=== PATIENT | female | born 1985 | race Caucasian/White ===

== ENCOUNTER 2022-07-16 01:28 | Emergency (ER) | payer BC, SELFPAY ==
[2022-07-16 01:33] VITALS: BP 134/74; PULSE 70; RESP 18; TEMP 36; O2SAT 95
--- NOTE | 2022-07-16 01:51 | CRLHL7_ITS ---
For Patients: As a result of the Cures Act, medical imaging exams and procedure reports are released immediately into your electronic medical record. You may view this report before your referring provider. If you have questions, please contact your health care provider. INDICATION: Injury, pain, smashed tip of finger in car door TECHNIQUE: Finger radiograph 3 views right 3rd COMPARISON: None FINDINGS: Bone: There is a nondisplaced comminuted fracture present in the 3rd distal phalangeal tuft. Joint: The metacarpophalangeal and interphalangeal joints are normal in appearance. Soft tissue: Mild soft tissue swelling is present along the distal finger. No radiopaque foreign bodies are seen. IMPRESSION: 1. There is a nondisplaced comminuted fracture present in the 3rd distal phalangeal tuft. Dictated by Edilberto Canas MD @ 07/16/2022 2:16:46 AM Dictated by: Edilberto Canas MD @ 07/16/2022 02:16:51 (Electronically Signed)
--- NOTE | 2022-07-16 01:52 | ED_ITS ---
HPI - General Adult General Date Seen: 07/16/22 Chief complaint: Extremity Pain/Injury, Upper Stated complaint: Smashed finger in car door Time Seen by Provider: 07/16/22 01:37 Source: patient Mode of arrival: ambulatory Limitations: no limitations History of Present Illness HPI narrative: Patient is a 37-year-old female who was picking her brother up at the airport when she slammed the car door on her right 3rd finger tip. It bled profusely. She comes in for evaluation for suturing. Last tetanus was within the last 10 years. Related Data Previous Rx's Medication Instructions Recorded sulfamethoxazole 800 1 tab PO BID #10 tabs 07/16/22 mg-trimethoprim 160 mg tablet (Bactrim DS) Allergies Allergy/AdvReac Type Severity Reaction Status Date / Time cefaclor [From Ceclor] AdvReac Severe Verified 07/16/22 01:38 Review of Systems 2 Narrative: Review of systems is as outlined above otherwise noted to be negative. Exam Narrative: Exam Narrative: Examination is limited to the right upper extremity. She has crush injury to the tip of the right 3rd finger with a jagged laceration that is about 1.5 cm in length. Bleeding is controlled with direct pressure. She has normal movement at the D IP joint. Const: Vital Signs, click to edit/add: Vital Signs - 24 hr 07/16/22 01:33 Temperature 96.8 F L Pulse Rate [Left P ulse Oximeter] 70 Respiratory Rate 18 Blood Pressure [Le ft Upper Arm] 134/74 Pulse Oximetry 95 Oxygen Delivery Me thod Room Air Course Course Hospital Course: Patient seen and examined. X-ray of the right 3rd finger shows a nondisplaced tiny tuft fracture. Her wound is prepped and draped in sterile fashion, scrubbed with a Betadine solution, numbed with 1% lidocaine. Four simple interrupted sutures used to close the defect. Good wound edge approximation and hemostasis was achieved. She tolerated this well. Estimated blood loss is less than 2 mL. It is then dressed with bacitracin and a Band-Aid. Vital Signs Vital signs: Initial Vital Signs Temperature 96.8 F L 07/16/22 01:33 Temperature Source Temporal Artery Scan 07/16/22 01:33 Pulse Rate 70 07/16/22 01:33 Pulse Rhythm 07/16/22 01:33 Respiratory Rate 18 11/18/22 01:33 Blood Pressure 134/74 07/16/22 01:33 Blood Pressure Mean 94 07/16/22 01:33 Blood Pressure Position Sitting 07/16/22 01:33 Pulse Oximetry 95 07/16/22 01:33 Oxygen Delivery Method 07/16/22 01:33 Vital Signs Temperature 96.8 F L 07/16/22 01:33 Pulse Rate 70 07/16/22 01:33 Respiratory Rate 18 07/16/22 01:33 Blood Pressure 134/74 07/16/22 01:33 Pulse Oximetry 95 07/16/22 01:33 Oxygen Delivery Method 07/16/22 01:33 Temperature 96.8 F L 07/16/22 01:33 Pulse Rate 70 07/16/22 01:33 Respiratory Rate 18 07/16/22 01:33 Blood Pressure 134/74 07/16/22 01:33 Pulse Oximetry 95 07/16/22 01:33 Oxygen Delivery Method 07/16/22 01:33 Discharge Plan Discharge Clinical Impression: Closed fracture of tuft of distal phalanx of finger, Finger laceration Patient Disposition: Home, Self-Care Additional Instructions: Keep wound clean, dry, protected. Use Tylenol or ibuprofen for pain. Take Bactrim DS twice daily for five days to prevent infection. Sutures out in 10 days. Watch for signs of infection. Prescriptions: New sulfamethoxazole-trimethoprim [Bactrim DS] 800-160 mg tablet 1 tab PO BID Qty: 10 0RF Follow Up/Referrals: Corinne Kay PA-C [Primary Care Provider] - Stand Alone [facility] Inst[facility]
--- OUTSIDE RECORDS SUMMARY | 2022-07-16 02:16 | XMS_ITS | Encounter Summary ---
:1985 Author Organization [place] Address [address] [place] [address] Care Team Providers Name Role Phone Thelma Cummins Ann Primary Care Provider Reason for Referral Nutrition - Closed Specialty Diagnoses / Procedures Referred By Contact Refer red To Contact Diagnoses Morbid obesity with BMI of 45.0-49.9, adult (H) Gisell Madrigal PA-C [address] [id number] Referral ID Status Reason Start Date Expiration Date Visits Requ ested Visits Authorized [id number] Closed 11/28/2018 11/28/2019 1 1 Reason for Visit Reason Comments Eval/Assessment New bariatric surgery eval w juanpablo CORTES and RDLeobardo (BCBS). Encounter Details Date Type Department Care Team Description 11/28/2018 Office Visit [facility] Gisell Madrigal Morbid ob esity with BMI of 45.0-49.9, adult (H) (Primary Dx); Surgical Weight Loss CONSTANTIN Alvarado YAMINI on CPAP; [facility] [address] Prediabetes; [address] [facility] [address] [phone] Stress incontinence; [facility] [phone] GERD without esophagitis; [address] (Work) [employer]; [place] [id number] Lower extremity edema; Low back pain, unspecified back pain laterality, unspecified chronicity, with sciatica presence unspecified; Chronic diarrhe a; Tobacco use dis order Social History Tobacco Use Types Packs/Day Years Used Date Smoking Tobacco: Every Day Cigarettes 0.5 15 Smokeless Tobacco: Never Alcohol Use Standard Drinks/Week Comments No 0 (1 standard drink = 0.6 oz pure alcoho l) Alcohol Habits Answer Date Recorded How often do you have a drink containing alcohol? Never 10/25/2018 How many drinks containing alcohol do you have on a typical Not asked day when you are drinking? How often do you have six or more drinks on one occasion? No t asked Sex Assigned at Date Recorded Not on file documented as of this encounter Last Filed Vital Signs Vital Sign Reading Time Taken Comments Blood Pressure 125/76 11/28/2018 10:00 AM CDT Pulse 85 11/28/2018 10:00 AM CDT Temperature - - Respiratory Rate - - Oxygen Saturation 97% 11/28/2018 10:00 AM CDT Inhaled Oxygen Concentration - - Weight 136 kg (299 lb 12.8 oz) 11/28/2018 10:00 AM CDT Height 171.5 cm (5' 7.5) 11/28/2018 10:00 AM CDT Body Mass Index 46.26 11/28/2018 10:00 AM CDT documented in this encounter Progress Notes Gisell Madrigal PA-C - 11/28/2018 10:00 AM CDT New Bariatric Surgery Consultation Note November 28, 2018 RE: Ann-Marie Alvarado MR#: [id number] : 1985 Referring provider: 11/28/2018 Who referred you? Dr. Curiel Chief Complaint/Reason for visit: evaluation for possible weight loss surgery Dear Thelma Cummins (General), I had the pleasure of seeing your patient, Ann-Marie Alvarado, to evaluate her obesity and consider her for possible weight loss surgery. As you know, Ann-Marie Alvarado is 33 year old. She has a height of 5' 7.5, a weight of 299 lbs 12.8 oz, and calculated Body mass index is 46.26 kg/m??. HISTORY OF PRESENT ILLNESS: Weight Loss History Reviewed with Patient 11/28/2018 How long have you been overweight? Since burnisher and bumper What is the most that you have ever weighed? 300 What is the most weight you have lost? 10 I have tried the following methods to lose weight Watching portions or calories, Prescription Medications I have tried the following weight loss medications? (Check all that apply) Phentermine/Adipex-p/Suprenza Have you ever had weight loss surgery? No CO-MORBIDITIES OF OBESITY INCLUDE: 11/28/2018 I have the following co-morbidities associated with obesity: Pre-Diabetes, Sleep Apnea, GERD (Reflux), Asthma, Weight Bearing Joint Pain, Stress Incontinence Do you use a CPAP? Yes Are you taking daily medication for heartburn, acid reflux, or GERD (acid reflux disease)? Yes Was diagnosed with prediabetes with an A1C = 5.7. Unable to view in EMR. Patient was started on metformin. Diagnosed with YAMINI last year. Severe YAMINI. Now wears CPAP nightly. GERD - has been taking protonix once daily for years PAST MEDICAL HISTORY: Past Medical History: Diagnosis Date ??? Heart palpitations Has had infrequent heart palpitations over the past few years. About a month ago was having heart palpitations for about a week when she had a near syncope episode while at work. She was taken by ambulance to [facility]. Has has echo scheduled in 2 weeks. PAST SURGICAL HISTORY: Past Surgical History: Procedure Laterality Date ??? CHOLECYSTECTOMY 2011 ??? HYSTERECTOMY 2014 No person history of blood clots but patient remembers having a hard time coming out of anesthesia from her first surgery as an adult. Has had surgery since this with no problem. Mother had a DVT in her 40's. Not sure of the cause. FAMILY HISTORY: Family History Problem Relation Age of Onset ??? Hypertension Mother ??? Diabetes Mother ??? Hyperlipidemia Mother ??? Depression Mother ??? Obesity Mother ??? Hyperlipidemia Father ??? Depression Father ??? Hypertension Father ??? Obesity Father Mother had gastric bypass many years ago. SOCIAL HISTORY: Social History Questions Reviewed With Patient 11/28/2018 Which best describes your employment status (select all that apply) I work full-time If you work, what is your occupation? [employer] Which best describes your marital status: Do you have children? Yes Who do you have in your support network that can be available to help you for the first 2 weeks after surgery? , family Who can you count on for support throughout your weight loss surgery journey? , family Can you afford 3 meals a day? Yes Can you afford 50-60 dollars a month for vitamins? Yes HABITS: 11/28/2018 How often do you drink alcohol? Monthly or less If you do drink alcohol, how many drinks might you have in a day? (one drink = 5 oz. wine, 1 can/bottle of beer, 1 shot liquor) 1 or 2 Do you currently use any of the following Nicotine products? cigarettes Have you ever used any of the following nicotine products? Cigarettes Have you or are you currently using street drugs or prescription strength medication for which you do not have a prescription for? No Do you have a history of chemical dependency (alcohol or drug abuse)? No Drinks alcohol maybe once yearly. Smokes cigarettes since age 19. She is down from a ppd to 5 cigarettes. PSYCHOLOGICAL HISTORY: Psychological History Reviewed With Patient 11/28/2018 Have you ever attempted suicide? Never. Have you had thoughts of suicide in the past year? No Have you ever been hospitalized for mental illness or a suicide attempt? Never. Do you have a history of chronic pain? Yes Have you ever been diagnosed with fibromyalgia? No Are you currently being treated for any of the following? (select all that apply) Depression Are you currently seeing a therapist or counselor? No Are you currently seeing a psychiatrist? No Feels like she is doing better with her depression ROS: 11/28/2018 Skin: Skin fold rashes (groin or other folds), Leg swelling HEENT: Headaches Musculoskeletal: Joint Pain, Back pain, Limited mobility, Swelling of legs, Arthritis Cardiovascular: Shortness of breath with activity Pulmonary: Shortness of breath with activity, Snoring, Excessively sleep during the day Gastrointestinal: Heartburn, Reflux, Diarrhea Genitourinary: Stress incontinence (losing urine when coughing, sneezing, etc.) Hematological: Family history of blood clots Neurological: None of the above Female only: None of the above For back pain takes tylenol. She does go to see chiropractor. Gets tension headaches EATING BEHAVIORS: 11/28/2018 Have you or anyone else thought that you had an eating disorder? No Do you currently binge eat (eat a large amount of food in a short time)? No Are you an emotional eater? No Do you get up to eat after falling asleep? No EXERCISE: 11/28/2018 How often do you exercise? Less than 1 time per week What is the duration of your exercise (in minutes)? 15 Minutes What types of exercise do you do? walking What keeps you from being more active? Pain, My ability to walk or move around is limited, Too tired MEDICATIONS: Current Outpatient Medications Medication Sig Dispense Refill ??? Cholecalciferol (VITAMIN D-3) 5000 units TABS ??? escitalopram (LEXAPRO) 20 MG tablet ??? metFORMIN (GLUCOPHAGE-XR) 500 MG 24 hr tablet Take 500 mg by mouth daily (with dinner) ??? multivitamin w/minerals (MULTI-VITAMIN) tablet Take 1 tablet by mouth daily ??? pantoprazole (PROTONIX) 40 MG EC tablet Take 40 mg by mouth daily ALLERGIES: Allergies Allergen Reactions ??? Ceclor Cd [Cefaclor Monohydrate] Hives, Swelling and Difficulty breathing Throat swells ??? Sertraline Nausea and Vomiting ??? Wellbutrin [Bupropion] LABS/IMAGING/MEDICAL RECORDS REVIEW: latest labs PHYSICAL EXAM: BP 125/76 (BP Location: Right arm, Patient Position: Sitting, Cuff Size: Adult Large) Pulse 85 Ht 5' 7.5 (1.715 m) Wt 299 lb 12.8 oz (136 kg) SpO2 97% BMI 46.26 kg/m?? GENERAL: Good development and normal affect in no acute distress. Patient is alert and orientated x 3 and answers all questions appropriately. HEENT: Head is normocephalic, nontraumatic. Pupils equal and round without conjunctival injection. Neck is supple without lymphadenopathy, thyroidmegaly, or mass. Trachea midline. Dentition WNL. Missing 1 MARIAELENA tooth CARDIOVASCULAR: Regular rate and rhythm without murmurs, rubs, or gallops. RESPIRATORY: Lungs are clear to auscultation bilaterally with good breath sounds. GASTROINTESTINAL: Abdomen is obese, nondistended, soft, nontender, without organomegaly or masses. No bruits. LOWER EXTREMITIES: No LE edema bilaterally, no cyanosis, ulceration, or chronic venous stasis noted. MUSCULOSKELETAL: Moves all 4 extremities equal and strong. Has a normal gait. NEUROLOGIC: Cranial nerves II-XII grossly intact. SKIN: No intertriginous irritation or rash. In summary, Ann-Marie Keily Jenny has Morbid obesity who's Body mass index is 46.26 kg/m??. and the comorbidities stated above. She completed an informational seminar and is a candidate for the laparoscopic gastric sleeve/gastric bypass. She will have to complete the following pre-requisites: Lose 0 lbs prior to surgery due to smoking cessation Have preoperative laboratory tests drawn. - Patient will get copies of recent A1C and vitamin D. Ordered hepatic panel today Psychological Evaluation with MMPI and clearance for weight loss surgery. 3 months smoke free First urine nicotine Achieve clearance from dietitian to see surgeon. Cardiology clearance CPAP usage data Today in the office we discussed patients medical history. Preoperative, perioperative, and postoperative processes, management, and follow up were addressed. Next month she will return to discuss boththe laparoscopic gastric sleeve as well as the gastric bypass. Risks and benefits will be addressed.All questions were answered. A goal sheet and support group handout were given to the patient. Reviewed need for pre/post op anticoagulation. BERNARDA states I ran it by Dr. Prasad. No need for work-up. Just treat standard post-op protocol for DVT prophylaxis. Lakshmi Sincerely, Gisell Madrigal PA-C I spent a total of 50 minutes face to face with the patient during today's office visit. Over 50% ofthis time was spent counseling the patient and/or coordinating care. documented in this encounter Plan of Treatment Scheduled Referrals Name Type Priority Associated Diagnoses Order S chedule NUTRITION REFERRAL Referral Routine Morbid obesity with BM I of Ordered: 11/28/2018 45.0-49.9, adult (H) documented as of this encounter Visit Diagnoses Diagnosis Morbid obesity with BMI of 45.0-49.9, ad ult (H) - Primary YAMINI on CPAP Obstructive sleep apnea (adult) (pediatr ic) Prediabetes Other abnormal glucose Stress incontinence Female stress incontinence GERD without esophagitis Esophageal reflux Intertrigo Other specified erythematous condition Lower extremity edema Edema Low back pain, unspecified back pain lat erality, unspecified chronicity, with sciatica presence unspecified Chronic diarrhea Diarrhea Tobacco use disorder documented in this encounter Care Teams Lunchroom Mother Relationship Specialty Start Date End Date Thelma Cummins PCP - General Family Practice 11/28/18 documented as of this encounter
--- OUTSIDE RECORDS SUMMARY | 2022-07-16 02:16 | XMS_ITS | Encounter Summary ---
:1985 Author Organization [facility] [facility] Address [address] [place] [address]. [place] [address] Care Team Providers Name Role Phone Isabel Mcclelland MD Primary Care Provider [phone] Encounter Details Date Type Department Care Team Description 10/25/2018 Travel Social History Tobacco Use Types Packs/Day Years [...] on file documented as of this encounter Plan of Treatment Not on filedocumented as of this encounter Visit Diagnoses Not on filedocumented in this encounter Care Teams Tile Fitter Relationship Specialty Start Date End Date Isabel Mcclelland MD PCP - General Family Practice 10/25/18 11/27/[address] [address] documented as of this encounter
--- OUTSIDE RECORDS SUMMARY | 2022-07-16 02:16 | XMS_ITS | Clinical Summary ---
:1985 Author Organization [facility] Address [address] [address] Care Team Providers Name Role Phone Unavailable Primary Care Provider Unavailable Source Comments You are receiving this document as you are listed as the primary care provider,follow-up provider, or the patient has been referred to you for consultation.This is in compliance with the Medicare and Medicaid EHR Incentive Program,which states Providers who transition their patient to another setting of careor provider of care or refers their patient to another provider of care shouldprovide summarycare record for each transition of care or referral. [facility] Allergies Active Allergy Reactions Severity Noted Date Comments Cefaclor Anaphylaxis High 02/17/2011 Medications Medication Sig Dispensed Refills Start Date End Date Status FLUoxetine (PROZAC) 20 Take 60 mg by 0 Active MG tablet mouth daily. pantoprazole (PROTONIX) Take 20 mg by 0 Active 20 MG tablet mouth daily. propranolol (INDERAL) Take 5 mg by 0 Active 10 MG tablet mouth two times a day. diclofenac (VOLTAREN) Take 1 Tablet by 30 Tablet 0 10/21/2020 Active 50 MG enteric coated mouth two times a tablet day. Active Problems Problem Noted Date Lumbar herniated disc 05/10/2011 Work-related condition 05/04/2011 Sciatica 04/29/2011 Pain in back 04/29/2011 Family History Medical History Relation Name Comments Diabetes Mother Cancer, Breast Maternal Grandmother Relation Name Status Comments Father Alive Mother Alive Brother Alive Daughter Alive x 2 Maternal Grandmother Social History Tobacco Use Types Packs/Day Years Used Date Smoking Tobacco: Every Day Cigarettes 1 6 Smokeless Tobacco: Never Alcohol Use Standard Drinks/Week Comments No 0 (1 standard drink = 0.6 oz pure alcoho l) Sex Assigned at Date Recorded Not on file Last Filed Vital Signs Vital Sign Reading Time Taken Comments Blood Pressure 136/70 07/09/2011 9:27 AM SNOW PLOW OPERATOR Pulse 76 07/09/2011 9:27 AM SNOW PLOW OPERATOR Temperature 36.8 ??C (98.3 ??F) 10/21/2020 10:18 AM SNOW PLOW OPERATOR Respiratory Rate 16 06/22/2011 4:53 PM CDT Oxygen Saturation - - Inhaled Oxygen Concentration - - Weight 132.9 kg (293 lb) 10/21/2020 10:18 AM SNOW PLOW OPERATOR Height 165.1 cm (5' 5) 10/21/2020 10:18 AM SNOW PLOW OPERATOR Body Mass Index 48.76 10/21/2020 10:18 AM SNOW PLOW OPERATOR Plan of Treatment Health Maintenance Due Date Last Done Comments Cervical Cancer Screening 1985 Due Hep C Screening (Preventive 1985 Services) HepB (1) 1985 COVID-19 Vaccine (#1) 1985 HIV Screening (Preventive 2002 Services) Adult Preventive Visit 02/26/2004 Influenza (#1) 2022 07/19/2019, 07/14/2018, 06/23/2016, Additional history exists DTaP/Tdap/Td (5 - Tdap) 07/08/2025 07/08/2015, 02/27/2014, 04/25/2007, Additional history exists Zoster/Shingles (1 of 2) 02/26/2036 HPV Vaccine Aged Out No longer eligib le based on patient 's age to complete this topic HepA Aged Out No longer eligib le based on patient 's age to complete this topic Hib Aged Out No longer eligib le based on patient 's age to complete this topic IPV (Polio) Aged Out No longer eligib le based on patient 's age to complete this topic MCV4 Aged Out No longer eligib le based on patient 's age to complete this topic Pneumococcal Aged Out No longer eligib le based on patient 's age to complete this topic Insurance Payer Benefit Plan / Subscriber ID Effective Dates Phone Addre ss Type Group BCBS BCBS OUT OF [id number] 2017-Present [address] [address] [facility] [id number]
--- OUTSIDE RECORDS SUMMARY | 2022-07-16 02:16 | XMS_ITS | Clinical Summary ---
:1985 Author Organization [place] Address [address] [place] [address] Care Team Providers Name Role Phone Thelma Cummins Ann Primary Care Provider Allergies Active Allergy Reactions Severity Noted Date Comments Cefaclor Monohydrate Hives, Swelling, Difficulty 12/01 Throat swells breathing Sertraline Nausea and Vomiting 11/28/2018 Bupropion 11/28/2018 Medications Medication Sig Dispensed Refills Start Date End Date Status pantoprazole (PROTONIX) Take 40 mg by 0 Active 40 MG EC tablet mouth daily escitalopram (LEXAPRO) 20 0 11/09/2018 Active MG tablet Cholecalciferol (VITAMIN 0 Active D-3) 5000 units TABS multivitamin w/minerals Take 1 tablet 0 Active (MULTI-VITAMIN) tablet by mouth daily metFORMIN (GLUCOPHAGE-XR) Take 500 mg by 0 Active 500 MG 24 hr tablet mouth daily (with dinner) Resolved Problems Problem Noted Date Resolved Date Sciatica 05/17/2011 07/09/2011 HNP (herniated nucleus pulposus) 05/17/2011 011 Family History Medical History Relation Comments Depression Father Hyperlipidemia Father Hypertension Father Obesity Father Depression Mother Diabetes Mother Hyperlipidemia Mother Hypertension Mother Obesity Mother Relation Status Comments Father Mother Social History Tobacco Use Types Packs/Day Years [...] Pulse 85 11/28/2018 10:00 AM CDT Temperature 36.7 ??C (98 ??F) 10/25/2018 2:29 PM [employer] Respiratory Rate 17 10/25/2018 4:07 PM [employer] Oxygen Saturation 97% 11/28/2018 10:00 AM CDT Inhaled Oxygen Concentration - - Weight 136 kg (299 lb 12.8 oz) 11/28/2018 10:00 AM CDT Height 171.5 cm (5' 7.5) 11/28/2018 10:00 AM CDT Body Mass Index 46.26 11/28/2018 10:00 AM CDT Plan of Treatment Health Maintenance Due Date Last Done Comments ADVANCE CARE PLANNING 1985 ANNUAL REVIEW OF HM ORDERS 1985 YEARLY PREVENTIVE VISIT 1985 COVID-19 Vaccine (#1) 1985 Pneumococcal Vaccine: 02/26/1992 Pediatrics (0 to 5 Years) and At-Risk Patients (6 to 64 Years) (1 - PCV) PAP 2007 DTAP/TDAP/TD IMMUNIZATION 12/05/2007 12/04/1997 (2 - Td or Tdap) PHQ-2 (once per calendar 08/29/2021 year) INFLUENZA VACCINE (#1) 2022 07/14/2018, 06/23/2016, 07/08/2015, Additional history exists HEPATITIS B IMMUNIZATION Completed 04/02/1998, 12/04/1997, 07/10/1997 HEPATITIS C SCREENING Completed 12/01/2010 HIV SCREENING Completed 12/01/2010 IPV IMMUNIZATION Aged Out No longer eligi ble based on patient 's age to complete this topic MENINGITIS IMMUNIZATION Aged Out No longe r eligible based on patient 's age to complete this topic Insurance Payer Benefit Plan Subscriber ID Effective Phone Address Typ e / Group Dates WORK COMP WC STATE FUND [id number] 2011-Prese [phone] [address] [place] [address] BCBS BCBS OUT OF [id number] 2018-Prese [phone] [address] [address] [facility] [address] [place] [address] [employer] Employer [phone] (Home) [place] [address] Ann-Marie Alvarado Worker's Self 1985 [phone] [address] [employer] [address] (Home) [place] [address] [id number] Worker's Employer 1985 [phone] (Home) [facility] [phone] [phone] (Work) [place] [address] Care Teams Foster Care Therapist Relationship Specialty Start Date End Date Thelma Cummins PCP - General Family Practice 11/28/18
--- OUTSIDE RECORDS SUMMARY | 2022-07-16 02:16 | XMS_ITS | Encounter Summary ---
:1985 Author Organization [facility] Address [address] [place] [address] Care Team Providers Name Role Phone Isabel Mcclelland MD Primary Care Provider [phone] Reason for Referral CV Testing - Closed Specialty Diagnoses / Procedures Referred By Contact Refer red To Contact Cardiology Diagnoses Near syncope Acacia Sanabria APRN Rh Cv Cardiac Svc Rscc Procedures Zio Patch Holter Adult Pediatric Greater than 48 hrs HC EXT ECG > 48HR TO 21 DAY RCRD W/CONECT INTL RCRD C EXT ECG > 48HR TO 21 DAY REVIEW AND INTERPRETATN [employer] [address] [facility] [place] [address] [place] [phone] Phone: Fax: Referral ID Status Reason Start Date Expiration Date Visits Requ ested Visits Authorized [id number] Closed 10/25/2018 10/25/2019 1 1 R COMMISSIONER Reason for Visit Reason Comments Dizziness Encounter Details Date Type Department Care Team Description 10/25/2018 Emergency [facility] Acacia Sanabria APRN Near syncope Emergency Dept [employer] [address] [facility] [place] [phone] [facility] [phone] [place], [place] [address] Social History Tobacco Use Types Packs/Day Years [...] Sign Reading Time Taken Comments Blood Pressure 123/77 10/25/2018 4:07 PM LABOR COMMISSIONER Pulse 62 10/25/2018 4:07 PM LABOR COMMISSIONER Temperature 36.7 ??C (98 ??F) 10/25/2018 2:29 PM LABOR COMMISSIONER Respiratory Rate 17 10/25/2018 4:07 PM LABOR COMMISSIONER Oxygen Saturation 100% 10/25/2018 4:07 PM LABOR COMMISSIONER Inhaled Oxygen Concentration - - Weight - - Height - - Body Mass Index - - documented in this encounter Discharge Instructions Discharge Acacia Izquierdo APRN [employer] - 10/25/2018 4:05 PM LABOR COMMISSIONER Present to [facility], [address] tomorrow at 3 pm to have your pvc monitor placed. Return to ED with syncopal episodes, chest pain, or any further concerns. Discharge Instructions Syncope Syncope (fainting) is a sudden, short loss of consciousness (passing out spell). People will usuallyfall to the ground when they faint or slump over if seated. People may also shake when this happens,and it can sometimes be difficult to tell the difference between syncope and a seizure. At this time, your provider does not find a reason to suspect that your fainting spell is a sign of anything dangerous or life-threatening. However, sometimes the signs of serious illness do not show up right away. Generally, every Emergency Department visit should have a follow-up clinic visit with either a primary or a specialty clinic/provider. Please follow-up as instructed by your emergency provider today. Return to the Emergency Department if: You faint again. You have any significant bleeding. You have chest pain or a fast or irregular heartbeat. You feel short of breath. You cough up any blood. You have abdominal (belly) pain or unusual back pain. You have ongoing vomiting (throwing up) or diarrhea (loose stools). You have a black or tarry bowel movement, or blood in the stool or in your vomit. You have a fever over 101??F. You lose feeling or cannot move a part of your body or cannot talk normally. You are confused, have a headache, cannot see well, or have a seizure. DO NOT DRIVE. CALL 911 INSTEAD! What can I do to help myself? Follow any specific instructions that your provider discussed with you. If you feel light-headed, make sure to sit down right away, even if you have to sit on the floor. Follow up with your regular medical provider as discussed for further management. This may include lowering your blood pressure medications, insulin or other diabetic medications, checking your blood sugar more frequently, and drinking more fluids, taking medicines for vomiting or diarrhea or getting up slower. If you were given a prescription for medicine here today, be sure to read all of the information (including the package insert) that comes with your prescription. This will include important information about the medicine, its side effects, and any warnings that you need to know about. The pharmacist who fills the prescription can provide more information and answer questions you may have about the medicine. If you have questions or concerns that the pharmacist cannot address, please call or return to the Emergency Department. Remember that you can always come back to the Emergency Department if you are not able to see your regular provider in the amount of time listed above, if you get any new symptoms, or if there is anything that worries you. R COMMISSIONER AttachmentsThe following attachments cannot be sent through Care Everywhere.NEAR SYNCOPE, UNKNOWN (KYRGYZ)documented in this encounter Medications at Time of Discharge Medication Sig Dispensed Refills Start Date End Date pantoprazole (PROTONIX) 40 Take 40 mg by mouth 0 MG EC tablet daily FLUoxetine (PROZAC) 40 MG Take 40 mg by mouth 0 11/28/2018 capsule daily documented as of this encounter ED Notes Verenice Cummings N - 10/25/2018 3:02 PM CST Preformed orthostatics. Pt reports dizziness when going from sitting position to standing. Dizzinessdid not go away with time in the standing position. Gradually decreased with sitting R COMMISSIONER Sandee York RN - 10/25/2018 2:17 PM CST Brought in by EMS. Last couple of days patient c/o dizzy/lightheaded episodes with what feels like heart flip flopping. Laying down makes her feel better. EKG unremarkable per EMS. VSS, heartrate 80.BS 202. R COMMISSIONER Chanel Alan RN - 10/25/2018 2:14 PM CST Bed: ED18 Expected date: 10/25/18 Expected time: 2:07 PM Means of arrival: Ambulance Comments: BV2 R COMMISSIONER Acacia Sanabria APRN CNP - 10/25/2018 2:13 PM CST History Chief Complaint: Near-Syncope HPI Ann-Marie Alvarado is a 33 year old female with a history of tobacco smoking, anxiety, asthma, and syncope who presents to the ED via EMS for evaluation of a near-syncopal episode. The patient reports that for the past couple of days she has been experiencing episodes of lightheadedness and dizzin ess with associated flip-flopping palpitations and shortness of breath. She states that she has experienced four such episodes in the past 24 hours, which are typically prompted by standing up. This morning around 1100, the patient reports that she was standing at her desk at work, when she suddenlyexperienced an episode of dizziness and felt as though she might faint. She denies that she fell, hit her head, or lost consciousness with this, although EMS was called to the scene. EMS reports that the patient was vitally stable en route to the ED with a systolic blood pressure of 156. She did have a glucose of 202 but the patient had had a coffee drink just prior to their arrival. The patient's sym ptoms had resolved upon her arrival to the ED, and here she denies any recent fevers, vomiting, diarrhea, chest pain, abdominal pain, bloody or black stools, leg swelling, or leg pain. She has been eating and drinking normally. The patient denies any personal cardiac history, although her mother does have atrial fibrillation. No recent changes in medication. Per EMS, the patient also has a remote history of anxiety. Cardiac/PE/DVT Risk Factors: The patient has no history of hypertension, hyperlipidemia, or diabetes. She is a current every day smoker. She reports a family history of diabetes and atrial fibrillation. The patient denies any personal or familial history of PE, DVT, or clotting disorder. The patient reports no recent travel, surgery, or other immobilizations. Allergies: Ceclor Cd [Cefaclor Monohydrate] Medications: Fluoxetine Pantoprazole Past Medical History: Sciatica Lumbar herniated disc UTI Asthma Syncope Depression Morbid obesity Past Surgical History: Hysterectomy Laparoscopic cholecystectomy Family History: Diabetes Atrial fibrillation Social History: Smoking Status: Current every day smoker Negative for alcohol use. Negative for drug use. Marital Status: [2] Review of Systems Constitutional: Negative for appetite change and fever. Respiratory: Positive for shortness of breath. Negative for cough. Cardiovascular: Positive for palpitations. Negative for chest pain and leg swelling. Gastrointestinal: Negative for abdominal pain, blood in stool, diarrhea and vomiting. Musculoskeletal: Negative for myalgias. Neurological: Positive for dizziness, syncope (near) and light-headedness. All other systems reviewed and are negative. Physical Exam Patient Vitals for the past 24 hrs: BP Temp Temp src Pulse Heart Rate Resp SpO2 10/25/18 1607 123/77 -- -- 62 63 17 100 % 10/25/18 1430 137/80 -- -- 78 -- -- -- 10/25/18 1429 131/75 98 ??F (36.7 ??C) Oral 70 -- -- 99 % 10/25/18 1426 123/69 -- -- 72 -- -- 98 % 10/25/18 1419 135/73 -- -- 66 66 18 100 % Physical Exam Constitutional: Alert, attentive, GCS 15. HENT: Mucous membranes are moist. Eyes: EOM are normal. PERRLA. Conjunctiva pink, no scleral icterus or conjunctival injection CV: regular rate and rhythm; no murmurs, rubs or gallups. Radial, dorsalis pedis and posterior tibial pulses 2+ bilaterally. Cap refill <2 seconds. Respiratory: Effort normal. Lungs clear to auscultation bilaterally. No crackles/rubs/wheezes. Good air movement. GI: There is no tenderness; rebound or guarding. No distension. Normal bowel sounds. MSK: Normal range of motion. No peripheral edema or calf tenderness. Neurological: Alert, attentive. Skin: Skin is warm and dry. No rashes or petechiae. Psychiatric: Normal affect. Emergency Department Course ECG: Indication: Near-syncope Time: 1424 Vent. Rate 76 bpm. ND interval 176. QRS duration 84. QT/QTc 416/468. P-R-T axis 37 47 29. Sinu rhythm with market sinus arrhythmia with occasional ventricular- paced complexes. Abnormal ECG. Read and signed by Dr. Breen at 1432 Imaging: Radiographic findings were communicated with the patient who voiced understanding of the findings. XR Chest PA & LAT: No radiographic evidence of acute chest abnormality. as per radiology. Laboratory: CBC: WBC: 8.8, HGB: 14.0, PLT: 239 BMP: Glucose 129 (H), o/w WNL (Creatinine: 0.76) 1428 Troponin: <0.015 D dimer: 0.4 Interventions: 1432 NS 1L IV Emergency Department Course: Nursing notes and vitals reviewed. (1415) I performed an exam of the patient as documented above. EKG obtained in the ED, see results above. IV inserted. Medicine administered as documented above. Blood drawn. This was sent to the lab for further testing, results above. The patient was sent for a x-ray while in the emergency department, findings above. I rechecked the patient and discussed the results of her workup thus far. Findings and plan explained to the Patient. Patient discharged home with instructions regarding supportive care, medications, and reasons to return. The importance of close follow-up was reviewed. Impression & Plan Medical Decision Making: Ann-Marie Alvarado is a 33 year old female who presents with a history and clinical exam consistent with near- syncope. I considered a broad differential for their syncope today including cardiac arrythmia, ACS, aortic stenosis, HOCM, PE, orthostatic hypotension, drugs, situational, carotid hypersensitivity, seizure, TIA, stroke, vasovagal. EKG without evidence of ischemia or dangerous arrhythmias including prolonged QT, WPW, Brugada syndrome, etc. Troponin negative after 24 hours of symptoms. PE was considered. However, with normal d- dimer patient is otherwise low risk and I do not feel a chest CT is indicated today. Chest xray shows heart size and pulmonary vascularity are within normal limits. The lungs are clear. No pneumothorax or pleural effusion. Near syncopal episodes due seem to be mostly positional in nature and there is some concern for orthostasis. She was given a liter of fluids here. Orthostatic blood pressure and pulse were obtained after fluids and were negative. Patient does note improvement of symptoms after fluids. She has no signs of a concerning etiology for near- syncope at this point. In addition,she has no family history of sudden , no chest pain, no seizure activity or post-ictal period, no murmur, and no signs of orthostasis in the ED, no focal neurologic symptoms, and no complaints of concerning headache. The workup in the ED is negative and the physicalexam is re-assurring. Supportive outpatient management is therefore indicated. I have ordered a Zio patch. Due to insurance issues, this was not able to be placed in ED but an appointment was scheduledfor tomorrow at 3 pm. Follow-up with PCP in 2 days. Return to ED with further episodes of near-syncop e, syncope, chest pain, shortness of breath, or any further concern. Critical Care time: none Diagnosis: ICD-10-CM 1. Near syncope R55 Zio Patch Holter Adult Pediatric Greater than 48 hrs Disposition: discharged to home Discharge Medications: Medication List There are no discharge medications for this visit. Scribe Disclosure: I, Estefania Gerber, am serving as a scribe on 10/25/2018 at 2:46 PM to personally document services performed by Acacia Sanabria APRN * based on my observations and the provider's statements to me. Estefania Gerber 10/25/2018 [facility] EMERGENCY DEPARTMENT Acacia Sanabria APRN CNP 10/25/18 1641 R COMMISSIONER documented in this encounter Plan of Treatment Scheduled Orders Name Type Priority Associated Diagnoses Order S chedule Zio Patch Holter Cardiac Services STAT One henri e imaging for Adult Pediatric 1 Occurrence s Greater than 48 hrs starting 10/25/2018 until 9 documented as of this encounter Procedures Procedure Name Priority Date/Time Associated Comments Diagnosis XR CHEST 2 VIEWS STAT 10/25/2018 3:24 PM Resul ts for this LABOR COMMISSIONER procedure are i n the results section. CBC WITH PLATELETS & STAT 10/25/2018 2:28 PM R esults for this DIFFERENTIAL LABOR COMMISSIONER procedure are i n the results section. TROPONIN I STAT 10/25/2018 2:28 PM Results f or this LABOR COMMISSIONER procedure are i n the results section. D DIMER QUANTITATIVE STAT 10/25/2018 2:28 PM R esults for this LABOR COMMISSIONER procedure are i n the results section. BASIC METABOLIC PANEL STAT 10/25/2018 2:28 PM Results for this LABOR COMMISSIONER procedure are i n the results section. EKG 12-LEAD, TRACING STAT 10/25/2018 2:24 PM R esults for this ONLY LABOR COMMISSIONER procedure are i n the results section. documented in this encounter Results LEADLESS MOLD INSERT CHANGER APPLICATION AND INTERPRETATION 3 TO 7 DAY (10/26/2018 3:14 PM LABOR COMMISSIONER) Anatomical Region Laterality Modality Other Specimen (Source) Anatomical Location Collection Method / Collectio n Time Received Time / Laterality Volume Narrative This result has an attachment that is no t available. Acacia Looney Daniele ZENDEJASN [employer] CV CARDIAC SERVICES ORDERABL ES Chest XR, PA & LAT (10/25/2018 3:24 PM LABOR COMMISSIONER) Anatomical Region Laterality Modality Chest Digital Radiography Specimen (Source) Anatomical Location Collection Method / Collectio n Time Received Time / Laterality Volume Impressions 10/25/2018 3:31 PM LABOR COMMISSIONER IMPRESSION: No radiographic evidence of acute chest abnormality. VIRY KISER MD Narrative 10/25/2018 3:31 PM LABOR COMMISSIONER CHEST TWO VIEWS October 25, 2018 3:24 PM HISTORY: Chest pain. COMPARISON: None. FINDINGS: Heart size and pulmonary vascu larity are within normal limits. The lungs are clear. No pneumoth orax or pleural effusion. Procedure Note Viry Kiser MD - 10/25/2018Forma tting of this note might be different from the original. CHEST TWO VIEWS October 25, 2018 3:24 P M HISTORY: Chest pain. COMPARISON: None. FINDINGS: Heart size and pulmonary vascu larity are within normal limits. The lungs are clear. No pneumoth orax or pleural effusion. IMPRESSION: No radiographic evidence of acute chest abnormality. VIRY KISER MD Acacia Sanabria APRN, CNP IMG DIAGNOSTIC IMAGING ORDER DEBO D dimer quantitative (10/25/2018 2:28 PM LABOR COMMISSIONER) athologist [facility] D Dimer 0.4 0.0 - 0.50 10/25/2018 [facility] ug/ml FEU 2:51 PM [facility] Comment: This D-dimer assay is intended for use i n conjunction with a clinical pretest probability assessment model to exclude pulmonary embolism (PE) and deep venous thrombosis (DVT) in outpatients s uspected of PE or DVT. The cut-off value is 0.5 ug/mL FEU. Specimen Anatomical Collection Method Collection Time Receive d Time (Source) Location / / Volume Laterality Blood specimen 10/25/2018 2:28 PM 019 2:36 (specimen) LABOR COMMISSIONER PM LABOR COMMISSIONER Acacia Sanabria APRN, CNP LAB - BLOOD ORDERABLES Performing Organization Address [facility] Phon e Number M [facility] [address] [place], [place] [address] [facility] [address] [phone] Troponin I (10/25/2018 2:28 PM LABOR COMMISSIONER) [facility] Troponin I ES <0.015 0.000 - 10/25/2018 [facility] 0.045 ug/L 2:59 PM [facility] Comment: The 99th percentile for upper reference range is 0.045 ug/L. ??Troponin values in the range of 0.045 - 0.120 ug/L may b e associated with risks of adverse clinical events. Specimen Anatomical Collection Method Collection Time Receive d Time (Source) Location / / Volume Laterality Blood specimen 10/25/2018 2:28 PM 019 2:36 (specimen) LABOR COMMISSIONER PM LABOR COMMISSIONER Acacia Sanabria APRN, CNP LAB - BLOOD ORDERABLES Performing Organization Address [facility] Phon e Number M [facility] [address] [place], [place] [address] [facility] [address] [place] [phone] (ABNORMAL) Basic metabolic panel (10/25/2018 2:28 PM LABOR COMMISSIONER) athologist Signature Sodium 138 133 - 144 10/25/2018 [facility] mmol/L 2:49 PM [facility] Potassium 3.9 3.4 - 5.3 10/25/2018 [facility] mmol/L 2:49 PM [facility] Chloride 106 94 - 109 10/25/2018 [facility] mmol/L 2:49 PM [facility] Carbon Dioxide 27 20 - 32 10/25/2018 [facility] mmol/L 2:54 PM [facility] Anion Gap 5 3 - 14 10/25/2018 [facility] mmol/L 2:54 PM [facility] Glucose 129 (H) 70 - 99 10/25/2018 [facility] mg/dL 2:54 PM [facility] Urea Nitrogen 15 7 - 30 10/25/2018 [facility] mg/dL 2:54 PM [facility] Creatinine 0.76 0.52 - 10/25/2018 [facility] 1.04 mg/dL 2:54 PM [facility] GFR Estimate >90 >60 10/25/2018 [place] mL/min/{1. 2:54 PM [facility] 73_m2} HOSPITAL Comment: Non GFR Calc Starting 08/15/2018, serum creatinine ba sed estimated GFR (eGFR) will be calculated using the Chronic Kidney Dise [facility] Epidemiology Collaboration (CKD-EPI) equation. GFR Estimate If >90 >60 mL/min/{1.73_m2} 10/25/2018 2: 54 PM [facility] Comment: GFR Calc Starting 08/15/2018, serum creatinine ba sed estimated GFR (eGFR) will be calculated using the Chronic Kidney Dise [facility] Epidemiology Collaboration (CKD-EPI) equation. Calcium 8.7 8.5 - 10.1 mg/dL 10/25/2018 2:54 PM [facility] Specimen Anatomical Collection Method Collection Time Receive d Time (Source) Location / / Volume Laterality Blood specimen 10/25/2018 2:28 PM 019 2:36 (specimen) LABOR COMMISSIONER PM [facility] Acacia Sanabria APRN [employer] LAB - BLOOD ORDERABLES Performing Organization Address City/State/ZIP Code Phon e Number M [facility] [address] [place], [place] [address] [facility] [address] [place], [place] [address] [place] [address] CBC with platelets differential (10/25/2018 2:28 PM [facility]) [facility] gist Method Time Signature WBC 8.8 4.0 - 10/25/2018 [facility] 11.0 2:41 PM [facility] 10e9/L [facility] RBC Count 4.78 3.8 - 5.2 10/25/2018 [facility] 10e12/L 2:41 PM [facility] Hemoglobin 14.0 11.7 - 10/25/2018 [facility] 15.7 g/dL 2:41 PM [facility] Hematocrit 42.7 35.0 - 10/25/2018 [facility] 47.0 % 2:41 PM [facility] MCV 89 78 - 100 10/25/2018 [facility] fl 2:41 PM [facility] MCH 29.3 26.5 - 10/25/2018 [facility] 33.0 pg 2:41 PM [facility] MCHC 32.8 31.5 - 10/25/2018 [facility] 36.5 g/dL 2:41 PM [facility] RDW 12.5 10.0 - 10/25/2018 [facility] 15.0 % 2:41 PM [facility] Platelet Count 239 150 - 450 10/25/2018 [facility] 10e9/L 2:41 PM [facility] Diff Method Automated 10/25/2018 [facility] Method 2:41 PM [facility] % Neutrophils 55.8 % 10/25/2018 [facility] 2:41 PM [facility] % Lymphocytes 35.4 % 10/25/2018 [facility] 2:41 PM [facility] % Monocytes 6.5 % 10/25/2018 [facility] 2:41 PM [facility] % Eosinophils 1.7 % 10/25/2018 [facility] 2:41 PM [facility] % Basophils 0.5 % 10/25/2018 [facility] 2:41 PM [facility] % Immature 0.1 % 10/25/2018 [facility] Granulocytes 2:41 PM [facility] Nucleated RBCs 0 0 /100 10/25/2018 [facility] 2:41 PM [facility] Absolute 4.9 1.6 - 8.3 10/25/2018 [facility] Neutrophil 10e9/L 2:41 PM [facility] Absolute 3.1 0.8 - 5.3 10/25/2018 [facility] Lymphocytes 10e9/L 2:41 PM [facility] Absolute 0.6 0.0 - 1.3 10/25/2018 [facility] Monocytes 10e9/L 2:41 PM [facility] Absolute 0.2 0.0 - 0.7 10/25/2018 [facility] Eosinophils 10e9/L 2:41 PM [facility] Absolute 0.0 0.0 - 0.2 10/25/2018 [facility] Basophils 10e9/L 2:41 PM [facility] Abs Immature 0.0 0 - 0.4 10/25/2018 [facility] Granulocytes 10e9/L 2:41 PM [facility] Absolute 0.0 10/25/2018 [facility] Nucleated RBC 2:41 PM [facility] Specimen Anatomical Collection Method Collection Time Receive d Time (Source) Location / / Volume Laterality Blood specimen 10/25/2018 2:28 PM 019 2:36 (specimen) LABOR COMMISSIONER PM LABOR COMMISSIONER Acacia Sanabria APRN, CNP LAB - BLOOD ORDERABLES Performing Organization Address City/State/ZIP Code Phon e Number [place] [address] [place] [address] [facility] [address] [phone] EKG 12 lead (10/25/2018 2:24 PM LABOR COMMISSIONER) [facility] gist Method Time Signature Interpretation ECG Click View RADIOLOGY Image link RESULTS to view waveform and result Specimen (Source) Anatomical Collection Method Collection Time Re ceived Time Location / / Volume Laterality 10/25/2018 2:24 PM LABOR COMMISSIONER Acacia Sanbaria APRN [employer]PER[employer] ECG ORDERABLES Performing Organization Address City/State/ZIP Code Phon e Number RADIOLOGY RESULTS documented in this encounter Visit Diagnoses Diagnosis Near syncope Syncope and collapse documented in this encounter Administered Medications Inactive Administered Medications - up to 3 most recent administrations Medication Order MAR Action Action Date Dose Rate Site 0.9% sodium chloride BOLUS New Bag 10/25/2018 2:32 PM LABOR COMMISSIONER 1,000 mLs 1000 mL/hr Intravenous, 1,000 mL, ONCE, at 1,000 mL/hr, Administer over 1 Hours, On Tue10/25/18 at 1420, For 1 dose documented in this encounter Active and Recently Administered Medications Times are shown in LABOR COMMISSIONER. Scheduled Medication Order 10/23/2018 10/24/2018 10/25/2018 0.9% sodium chloride BOLUS (COMPLETED) 1432 (New Bag - Provider: Sandee York RN)1606 (Stopped - Provider: Sandee York RN) Intravenous, 1,000 mL, ONCE, at 1,000 mL /hr, Administer over 1 Hours, Tue10/25/18 at 1420, For 1 dose documented in this encounter Care Teams Middle School Coach Relationship Specialty Start Date End Date Isabel Mcclelland MD PCP - General Family Practice 10/25/18 11/27/[address] [address] documented as of this encounter
--- OUTSIDE RECORDS SUMMARY | 2022-07-16 02:16 | XMS_ITS | Encounter Summary ---
:1985 Author Organization [facility] Address [address] [place] [address] Care Team Providers Name Role Phone Unavailable Primary Care Provider Unavailable Reason for Visit Procedure/Equipment (Routine) - Incomplete Specialty Diagnoses / Procedures Referred By Contact Refer red To Contact Diagnoses Left shoulder pain, unspecified chronicity Pastor Galindo, DO Procedures XR Shoulder Lt 2+ Views [address] [place], [place] [address] Referral ID Status Reason Start Date Expiration Date Visits V isits Requested Authorized [id number] Incomplete 10/21/2020 01/20/2022 1 1 Encounter Details Date Type Department Care Team Description 10/21/2020 Ancillary Procedure Pastor Longoria Left shoulder pain, [place] [address] A, DO unspecified Radiology 9555 [facility] chronicity [address] [place] [address] [phone] Social History Tobacco Use Types Packs/Day Years Used Date Smoking Tobacco: Every Day Cigarettes 1 6 Smokeless Tobacco: Never Alcohol Use Standard Drinks/Week Comments No 0 (1 standard drink = 0.6 oz pure alcoho l) Sex Assigned at Date Recorded Not on file documented as of this encounter Plan of Treatment Not on filedocumented as of this encounter Procedures Procedure Name Priority Date/Time Associated Diagnosis Comme nts XR SHOULDER LT 2+ Routine 10/21/2020 10:31 AM Left shoulder pa in, Results for this VIEWS SAFETY SECURITY OFFICER unspecified procedure are i n chronicity the results section. documented in this encounter Results XR Shoulder Lt 2+ Views (10/21/2020 10:31 AM SAFETY SECURITY OFFICER) Anatomical Region Laterality Modality Upper Extremity, Shoulder Digital Radiog divya Specimen (Source) Anatomical Collection Method Collection Time Re ceived Time Location / / Volume Laterality 10/21/2020 10:27 AM SAFETY SECURITY OFFICER Impressions 10/21/2020 12:10 PM SAFETY SECURITY OFFICER COMPARISON: ??None. FINDINGS: ??Mild osteoarthritis in the a cromioclavicular joint. The remainder of the exam is unremarkable. ?? Procedure Note Charlie Howe MD - 10/21/2020For matting of this note might be different from the original. IMPRESSION COMPARISON: None. FINDINGS: Mild osteoarthritis in the acr omioclavicular joint. The remainder of the exam is unremarkable. Pastor Galindo DO RAD GD documented in this encounter Visit Diagnoses Diagnosis Left shoulder pain, unspecified chronici ty documented in this encounter
--- OUTSIDE RECORDS SUMMARY | 2022-07-16 02:16 | XMS_ITS | Encounter Summary ---
:1985 Author Organization [facility] Address [address] [place] [address] Care Team Providers Name Role Phone Isabel Mcclelland MD Primary Care Provider [phone] Reason for Referral CV Testing - [...] 48HR TO 21 DAY REVIEW AND INTERPRETATN EXECUTIVE MEETING MANAGER [address] [facility] [address] [place], [place] [phone] Phone: Fax: Referral ID Status Reason Start Date Expiration Date Visits Requ ested Visits Authorized [id number] Closed 10/25/2018 10/25/2019 1 1 D WASTE DIVISION SUPERVISOR Reason for Visit CV Testing - Closed Specialty Diagnoses / Procedures Referred By Contact Refer red To Contact Cardiology Diagnoses Near syncope Acacia Sanabria APRN Rh Cv Cardiac Svc Rscc Procedures Zio Patch Holter Adult Pediatric Greater than 48 hrs HC EXT ECG > 48HR TO 21 DAY RCRD W/CONECT INTL RCRD C EXT ECG > 48HR TO 21 DAY REVIEW AND INTERPRETATN EXECUTIVE MEETING MANAGER [address] [facility] [address] [place] [phone] Phone: Fax: Referral ID Status Reason Start Date Expiration Date Visits Requ ested Visits Authorized [id number] Closed 10/25/2018 10/25/2019 1 1 Encounter Details Date Type Department Care Team Description 10/26/2018 Hospital Encounter [facility] Daniele, Acacia Arayane , Near [facility] Heart GLASS ENGRAVER [facility] [address] [facility] [address] [place], [place] [phone] Social History Tobacco Use Types Packs/Day Years [...] on file documented as of this encounter Medications at Time of Discharge Medication Sig Dispensed Refills Start Date End Date pantoprazole (PROTONIX) 40 Take 40 mg by mouth 0 MG EC tablet daily FLUoxetine (PROZAC) 40 MG Take 40 mg by mouth 0 11/28/2018 capsule daily documented as of this encounter Progress Notes Claire Bruce - 10/26/2018 3:14 PM CST Naty placed. D WASTE DIVISION SUPERVISOR documented in this encounter Plan of Treatment Not on filedocumented as of this encounter Procedures Procedure Name Priority Date/Time Associated Diagnosis Comme nts LEADLESS TOBACCO CLOTH RECLAIMER Routine 10/26/2018 3:14 PM Near syncope APPLICATION AND SOLID WASTE DIVISION SUPERVISOR INTERPRETATION 3 TO 7 DAY documented in this encounter Results LEADLESS TOBACCO CLOTH RECLAIMER APPLICATION AND INTERPRETATION 3 TO 7 DAY (10/26/2018 3:14 PM SOLID WASTE DIVISION SUPERVISOR) Anatomical Region Laterality Modality Other Specimen (Source) Anatomical Location Collection Method / Collectio n Time Received Time / Laterality Volume Narrative This result has an attachment that is no t available. Acacia Sanabria APRN EXECUTIVE MEETING MANAGER CV CARDIAC SERVICES ORDERABL ES documented in this encounter Visit Diagnoses Diagnosis Near syncope Syncope and collapse documented in this encounter Care Teams Customer Service Cashier Relationship Specialty Start Date End Date Isabel Mcclelland MD PCP - General Family Practice 10/25/18 11/27/[address] [address] documented as of this encounter
--- OUTSIDE RECORDS SUMMARY | 2022-07-16 02:16 | XMS_ITS | Encounter Summary ---
:1985 Author Organization [facility] Address [address] [place] [address] Care Team Providers Name Role Phone Thelma Cummins Primary Care Provider Reason for Visit Reason Onset Date Comments Erroneous encounter-disregard 11/29/2018 Encounter Details Date Type Department Care Team Description 11/29/2018 Telephone [facility] Gisell Madrigal Erroneous Surgical Weight Loss CONSTANTIN Alvarado encounter-disregard [address] [phone] [address] (Work) [place] [phone] Social History Tobacco Use Types Packs/Day Years [...] on filedocumented in this encounter Care Teams Leasing Property Manager Relationship Specialty Start Date End Date Thelma Cummins PCP - General Family Practice 11/28/18 documented as of this encounter
--- OUTSIDE RECORDS SUMMARY | 2022-07-16 02:16 | XMS_ITS | Encounter Summary ---
:1985 Author Organization [facility] Address [address] [place] [address] Care Team Providers Name Role Phone Unavailable Primary Care Provider Unavailable Reason for Referral Procedure/Equipment (Routine) - Closed Specialty Diagnoses / Procedures Referred By Contact Refer red To Contact Diagnoses Left shoulder pain, unspecified chronicity Pastor Galindo, DO Procedures MR Shoulder Lt WO IV Cont [address] [place], [place] [address] Referral ID Status Reason Start Date Expiration Date Visits Requ ested Visits Authorized [id number] Closed 10/21/2020 01/20/2022 1 1 ITY MAINTENANCE WORKER Procedure/Equipment (Routine) - Incomplete Specialty Diagnoses / Procedures Referred By Contact Refer red To Contact Diagnoses Left shoulder pain, unspecified chronicity Pastor Galindo, DO Procedures XR Shoulder Lt 2+ Views [address] [place], [place] [address] Referral ID Status Reason Start Date Expiration Date Visits V isits Requested Authorized [id number] Incomplete 10/21/2020 01/20/2022 1 1 ITY MAINTENANCE WORKER Reason for Visit Reason Comments SHOULDER PAIN Left shoulder. No LYNNETTE. Ongoi ng 2 months Encounter Details Date Type Department Care Team Description 10/21/2020 Office Visit ROSCOE JoshiPastor Schwartz, Left sh oulder pain, Orthopedic Urgent DO unspecified chronicity Care 9555 [facility] (Primary Dx) [address] [place] [address] [phone] Social History Tobacco Use Types Packs/Day Years Used Date Smoking Tobacco: Every Day Cigarettes 1 6 Smokeless Tobacco: Never Alcohol Use Standard Drinks/Week Comments No 0 (1 standard drink = 0.6 oz pure alcoho l) Sex Assigned at Date Recorded Not on file documented as of this encounter Last Filed Vital Signs Vital Sign Reading Time Taken Comments Blood Pressure - - Pulse - - Temperature 36.8 ??C (98.3 ??F) 10/21/2020 10:18 AM UTILITY MAINTENANCE WORKER Respiratory Rate - - Oxygen Saturation - - Inhaled Oxygen Concentration - - Weight 132.9 kg (293 lb) 10/21/2020 10:18 AM UTILITY MAINTENANCE WORKER Height 165.1 cm (5' 5) 10/21/2020 10:18 AM UTILITY MAINTENANCE WORKER Body Mass Index 48.76 10/21/2020 10:18 AM UTILITY MAINTENANCE WORKER documented in this encounter Patient Instructions Patient InstructionsLeJone beltran, ATC - 10/21/2020 10:[address] Ricardo Galindo, DO Sports & Orthopedic Medicine Acute [facility] Medication Requests: Prescriptions are not filled on Weekends or on Weekdays after 3:00PM For all medication refills: Request a refill using Mobiot or contact your Pharmacy MRI Scheduling: To schedule an MRI at [facility] please call [phone] Paperwork Requests: Questions regarding FMLA or disability paperwork please call [phone] Phone lines are answered 8AM to 5PM Tuesday - Tuesday. General Scheduling: To schedule an appointment, please call [phone] [facility] ER Nurse Line: [phone] Workers??? Compensation: Please contact our department for any Work Comp concerns at Email: [email or web address] Diagnosis: 1. Left shoulder pain, unspecified chronicity Plan: Follow Up: As needed if symptoms are not improving or worsen. If you have any questions regarding your visit or next steps, please contact us at [phone]. Physical Therapy: Please call to coordinate physical therapy with your preferred location. A copy ofyour physical therapy prescription is included in your paperwork. Medications: Your physician has sent a prescription for Diclofenac/Voltaren to your preferred pharmacy. Take this medication as instructed. Please be sure to review all information provided on your prescription regarding this drug and any potential side effects you may experience. Ask your pharmacist if any questions arise. Please note: Refills of any prescribed medications are not guaranteed and are at the discretion of your provider. Imaging Communications Station Manager: [place] [address]. Call [phone] to schedule. Medication Requests: Prescriptions are filled on Weekdays before 3:00PM For all medication refills: Request a refill using Charitashart or contact your Pharmacy Paperwork Requests: FMLA or disability paperwork can be faxed to: [facility] - [phone] Please allow 7-10 business days for completion of all paperwork. [employer] Worker's Compensation Services: E-mail Address: [email or web address] To request copies of your medical records, call: [phone] (option 4) ITY MAINTENANCE WORKER documented in this encounter Progress Notes Pastor Galindo DO - 10/21/2020 12:00 PM CST NAME: ANN-MARIE MURGUIA MR#: [id number] CSN: [id number] AUTHENTICATING CLINICIAN: Pastor Galindo DO CONFIRM #: [id number] LOC: 5311 CLINIC PROGRESS NOTE DATE OF VISIT: 10/21/2020 : 1985 HPI: This is a 35-year-old female who presents regarding left shoulder pain. She denies any specific injury but began noticing discomfort to her left shoulder a few months ago. She noted some mild discomfort initially and she denies any known injury. She localizes pain primarily over the lateral aspect of her left shoulder, but does note some occasional diffuse discomfort. She notes pain that occasionallyradiates up into her left clavicle. Over the past few weeks, she has had some increased pain and hasalso noted some decreased range of motion involving her left shoulder. She notes pain when she attempts to do activities away from her body and overhead. She also notes some discomfort at night. She has been taking Tylenol and ibuprofen without much improvement. She has been applying ice as well. 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 No prior issues involving her left shoulder, and she has questions regarding additional management. PAST MEDICAL HISTORY: Reviewed and updated. MEDICATIONS: Per Epic. ALLERGIES: Per Epic. 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 She is right-hand dominant. She is a pack-a-day smoker. REVIEW OF SYSTEMS: She denies any neck pain. No fevers, chills, or rashes. She denies any numbness or tingling to her left upper extremity. PHYSICAL EXAM: VITAL SIGNS: Height 5 feet 5 inches, weight 293 pounds. Temp 98.3. GENERAL: This is a liqw--uroz-old female. She appears comfortable and in no apparent distress. MUSCULOSKELETAL: Left shoulder exam shows no visible deformity. She is nontender over her SC joint. Mild tenderness over the midshaft of her left clavicle. Nontender over her AC joint. She does have some mild tenderness over her anterior glenohumeral joint line. Nontender over the subacromial region of her left shoulder. She is able to actively flex her left shoulder to about 90 degrees. She is able to actively abduct her left shoulder to about 60 degrees, limited secondary to pain. I am able to passively abduct her to about 90 degrees but somewhat limited due to pain. She has no pain on circumduction of her left shoulder. She has a positive Ryan test. Negative Neer test. She has a negative Speed test. Sensation is grossly intact to her left upper extremity. 5/5 muscle strength noted on rotator cuff testing. IMAGING: Left shoulder radiographs were obtained in clinic and reviewed by myself. She has mild AC joint arthritic changes. No evidence of acute fracture or dislocation. Given her exam findings, an MRI of her left shoulder was also obtained. She returns today for her results. MRI report of her left shoulder is as follows: 1. Mild arthropathy in the AC joint. 2. Possible mild subacromial subdeltoid bursitis. ASSESSMENT: Left shoulder pain secondary to subacromial bursitis. PLAN: We discussed her current findings. We reviewed her MRI and reassurance was given that there is no evidence of adhesive capsulitis or rotator cuff injury. Given her ongoing discomfort, I did recommend aphysical therapy referral. I feel that she would benefit with a good rotator cuff strength and scapular stabilization program. She is interested in this and she will start PT in the near future. I did give her a prescription for 50 mg diclofenac and she can take this twice daily in place of other NSAIDs. She will continue ice, amst-vil-ijzomea analgesics, and other conservative measures. She will follow up in our clinic if she is not progressing over the next 6 weeks with her course of PT or if any new symptoms develop. ZAC:MEDQ C: R:10/21/20 15:04 CONFIRM#:[id number] ITY MAINTENANCE WORKER documented in this encounter Plan of Treatment Not on filedocumented as of this encounter Results MR Shoulder Lt WO IV Cont (10/21/2020 12:49 PM UTILITY MAINTENANCE WORKER) Anatomical Region Laterality Modality Shoulder, Skeletal, Arm, Upper Extremity, Other Left Magnetic Resonance Specimen (Source) Anatomical Collection Method Collection Time Re ceived Time Location / / Volume Laterality 10/21/2020 12:20 PM UTILITY MAINTENANCE WORKER Impressions 10/21/2020 12:58 PM UTILITY MAINTENANCE WORKER TECHNIQUE: ??Routine MRI of the left shoulder was performed without contrast. COMPARISON: ??None. FINDINGS: ?? CORACOACROMIAL ARCH/AC JOINT: ??Mild art hropathy in the acromioclavicular joint. Type 2 acromion. There is no significant thickening of the coracoacromial or coracohumeral ligaments. There is no signifi cant narrowing of the subacromial outlet or coracohumeral distance. ROTATOR CUFF: ??Mild tendinopathy in the conjoined supraspinatus and infraspinatus tendon. Subscapularis tendon is intact. There is no atrophy of the rotator cuff muscles. SUBACROMIAL/SUBDELTOID BURSA: ??Mild maurilio ma and fluid in the subacromial subdeltoid bursa. GLENOHUMERAL JOINT: ??There is no signif icant degenerative arthritis or focal cartilage defect. There is no significant joint effusion. No osteocartilaginous bodies are identified. LONG HEAD OF THE BICEPS TENDON/GLENOID L ABRUM: ??The intra and extraarticular portions of the long head of the biceps tendon are normal. The biceps-labral anchor is intact. There is no evidence of labral tear. MARROW AND SOFT TISSUES: ??There is no a bnormal signal. There is no soft tissue mass. IMPRESSION: 1. Mild arthropathy in the AC joint. 2. Possible mild subacromial subdeltoid bursitis. Procedure Note Charlie Howe MD - 10/21/2020For matting of this note might be different from the original. IMPRESSION TECHNIQUE: Routine MRI of the left екатерина aponte was performed without contrast. COMPARISON: None. FINDINGS: CORACOACROMIAL ARCH/AC JOINT: Mild arthr opathy in the acromioclavicular joint. Type 2 acromion. There is no significant thickening of the coracoacromial or coracohumeral ligaments. There is no significant narrowing of the subacromial outlet or c oracohumeral distance. ROTATOR CUFF: Mild tendinopathy in the c onjoined supraspinatus and infraspinatus tendon. Subscapularis tendon is intact. There is no atrophy of the rotator cuff muscles. SUBACROMIAL/SUBDELTOID BURSA: Mild edema and fluid in the subacromial subdeltoid bursa. GLENOHUMERAL JOINT: There is no signific ant degenerative arthritis or focal cartilage defect. There is no significant joint effusion. No osteocartilaginous bodies are identified. LONG HEAD OF THE BICEPS TENDON/GLENOID L ABRUM: The intra and extraarticular portions of the long head of the biceps tendon are normal. The biceps-labral anchor is intact. There is no evidence of labral tear. MARROW AND SOFT TISSUES: There is no abn ormal signal. There is no soft tissue mass. IMPRESSION: 1. Mild arthropathy in the AC joint. 2. Possible mild subacromial subdeltoid bursitis. Pastor Galindo DO RAD MRI XR Shoulder Lt 2+ Views (10/21/2020 10:31 AM UTILITY MAINTENANCE WORKER) Anatomical Region Laterality Modality Upper Extremity, Shoulder Digital Radiog divya Specimen (Source) Anatomical Collection Method Collection Time Re ceived Time Location / / Volume Laterality 10/21/2020 10:27 AM UTILITY MAINTENANCE WORKER Impressions 10/21/2020 12:10 PM UTILITY MAINTENANCE WORKER COMPARISON: ??None. FINDINGS: ??Mild osteoarthritis in the [...] Diagnosis Left shoulder pain, unspecified chronici ty - Primary Left shoulder pain, unspecified chronici ty Left shoulder pain, unspecified chronici ty documented in this encounter
--- OUTSIDE RECORDS SUMMARY | 2022-07-16 02:16 | XMS_ITS | Encounter Summary ---
:1985 Author Organization [facility] Address [address] [place] [address]. [place] [address] Care Team Providers Name Role Phone Isabel Mcclelland MD Primary Care Provider [phone] Encounter Details Date Type Department Care Team Description 10/26/2018 Travel Social History Tobacco Use Types Packs/Day [...] on filedocumented in this encounter Care Teams Sales Promotion Coordinator Relationship Specialty Start Date End Date Isabel Mcclelland MD PCP - General Family Practice 10/25/18 11/27/[address] [address] documented as of this encounter
--- OUTSIDE RECORDS SUMMARY | 2022-07-16 02:16 | XMS_ITS | Encounter Summary ---
:1985 Author Organization [facility] Address [address] [place] [address] Care Team Providers Name Role Phone Unavailable Primary Care Provider Unavailable Reason for Visit Procedure/Equipment (Routine) - Closed Specialty Diagnoses / Procedures Referred By Contact Refer red To Contact Diagnoses Left shoulder pain, unspecified chronicity Pastor Galindo, DO Procedures MR Shoulder Lt WO IV Cont 9[address] [place], [place] [address] Referral ID Status Reason Start Date Expiration Date Visits Requ ested Visits Authorized [id number] Closed 10/21/2020 01/20/2022 1 1 Encounter Details Date Type Department Care Team Description 10/21/2020 Ancillary Procedure Pastor Longoria Left shoulder pain, [place] [address] A, DO unspecified Radiology MRI 9555 [facility] chronicity [address] [place] [address] [phone] Social History Tobacco Use Types Packs/Day Years [...] Name Priority Date/Time Associated Diagnosis Comme nts MR SHOULDER LT WO STAT 10/21/2020 12:49 PM Left shoulder pa in, Results for this IV CONT DECORATING INSTRUCTOR unspecified procedure are i n chronicity the results section. documented in this encounter Results MR Shoulder Lt WO IV Cont (10/21/2020 12:49 PM DECORATING INSTRUCTOR) Anatomical Region Laterality Modality Shoulder, Skeletal, Arm, Upper Extremity, Other Left Magnetic Resonance Specimen (Source) Anatomical Collection Method Collection Time Re ceived Time Location / / Volume Laterality 10/21/2020 12:20 PM DECORATING INSTRUCTOR Impressions 10/21/2020 12:58 PM DECORATING INSTRUCTOR TECHNIQUE: ??Routine MRI of the left shoulder [...] IMPRESSION TECHNIQUE: Routine MRI of the left shoul fadi was performed without contrast. COMPARISON: None. FINDINGS: [...] subdeltoid bursitis. Pastor Galindo DO RAD MRI documented in this encounter Visit Diagnoses Diagnosis Left shoulder pain, unspecified chronici ty documented in this encounter
--- OUTSIDE RECORDS SUMMARY | 2022-07-16 02:16 | XMS_ITS | Encounter Summary ---
:1985 Author Organization [facility] Address [address] [place] [address] Care Team Providers Name Role Phone Isabel Mcclelland MD Primary Care Provider [phone] Reason for Visit Reason Onset Date Comments Ziopatch documentation 11/14/2018 Encounter Details Date Type Department Care Team Description 11/14/2018 Telephone [facility] Haily Morales, RN Ziopatch documentation [address] [place] [address] Social History Tobacco Use Types Packs/Day Years [...] on file documented as of this encounter Miscellaneous Notes Telephone Encounter - Haily Morales, RN - 11/14/2018 10:34 AM CDT Patient called requesting the results of her Ziopatch be faxed to her for her own records. States her PCP has reviewed the results with her. Copy of results faxed to [phone] per request. documented in this encounter Plan of Treatment Not on filedocumented as of this encounter Visit Diagnoses Not on filedocumented in this encounter Care Teams Sewing Machine Repairer Relationship Specialty Start Date End Date Isabel Mcclelland MD PCP - General Family Practice 10/25/18 11/27/[address] [address] documented as of this encounter
--- OUTSIDE RECORDS SUMMARY | 2022-07-16 02:16 | XMS_ITS | Encounter Summary ---
:1985 Author Organization [place] Address [address] [place] [address] Care Team Providers Name Role Phone Thelma Cummins Ann Primary Care Provider Encounter Details Date Type Department Care Team Description 11/28/2018 Office Visit [facility] Surgical 1, Sh Wl Diet, RD Weight Loss Clinic [place] [id number] [facility] [address] [place] [address] Social History Tobacco Use Types Packs/Day Years [...] on file documented as of this encounter Progress Notes Cam Grullon, RD, LD - 11/28/2018 11:00 AM CDT New Bariatric Nutrition Consultation Note Reason For Visit: Nutrition Assessment Ann-Marie Alvarado is a 33 year old presenting today for new bariatric nutrition consult. Pt isinterested in laparoscopic undecided. Patient is accompanied by self. Support System Reviewed With Patient 11/28/2018 Who do you have in your support network that can be available to help you for the first 2 weeks after surgery? , family Who can you count on for support throughout your weight loss surgery journey? , family ANTHROPOMETRICS: Estimated body mass index is 46.26 kg/m?? as calculated from the following: Height as of an earlier encounter on 11/28/18: 1.715 m (5' 7.5). Weight as of an earlier encounter on 11/28/18: 136 kg (299 lb 12.8 oz). Required weight loss goal pre-op: 0 lbs from initial consult weight (goal weight 299.8 lbs or less before surgery) 11/28/2018 I have tried the following methods to lose weight Watching portions or calories, Prescription Medications Weight Loss Questions Reviewed With Patient 11/28/2018 How long have you been overweight? 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 SUPPLEMENT INFORMATION: 1 multivitamin (online product) 5000 international unit(s) vitamin D-3 NUTRITION HISTORY: Recall Diet Questions Reviewed With Patient 11/28/2018 Describe what you typically consume for breakfast (typical or most recent): Nothing during the week except for coffee with creamer/ on weekends eggs, isidro, hash browns or toast Describe what you typically consume for lunch (typical or most recent): Ham burger, fries, soda ( or Megan) Describe what you typically consume for supper (typical or most recent): Lettuce salad with tomatoes, cucumber, cheese, ranch or Macanese dressing, meat (chicken or grass fed beef or pork or fish) Describe what you typically consume as snacks (typical or most recent): Yogurt with frozen fruit andCheese/ fruit How many ounces of water, or other low calorie drinks, do you drink daily (8 oz=1 glass)? 32 oz How many ounces of caffeine (coffee, tea, pop) do you drink daily (8 oz=1 glass)? 32 oz How many ounces of juice, pop, sweet tea, sports drinks, protein drinks, other sweetened drinks, do you drink daily (8 oz=1 glass)? 8-16 oz How many ounces of milk do you drink daily (8 oz=1 glass) 8 oz Please indicate the type of milk: 2% How often do you drink alcohol? Monthly or less If you do drink alcohol, how many drinks might you have in a day? (one drink = 5 oz. wine, 1 can/bottle of beer, 1 shot liquor) 1 or 2 (mixed drink) Eating Habits 11/28/2018 Do you have any dietary restrictions? No Do you currently binge eat (eat a large amount of food in a short time)? No Are you an emotional eater? No Do you get up to eat after falling asleep? No What foods do you crave? Carbs-bread, pasta ADDITIONAL INFORMATION: Patient does most of the cooking at home for her, her spouse, 3 kids and her [id number]. Generally pt does not eat spicy foods. Mom had weight loss surgery several year ago and has not bee extremelysuccessful. 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 Dining Out History Reviewed With Patient 11/28/2018 How often do you dine out? Nearly every day. Where do you dine out? (select all that apply) fast food chains What types of food do you order when you dine out? González Physical Activity Reviewed With Patient 11/28/2018 How often do you exercise? Less than 1 time per week What is the duration of your exercise (in minutes)? 15 Minutes What types of exercise do you do? walking What keeps you from being more active? Pain, My ability to walk or move around is limited, Too tired NUTRITION DIAGNOSIS: Obesity r/t long history of self-monitoring deficit and excessive energy intake aeb BMI >30 kg/m2. INTERVENTION: Intervention Provided/Education Provided on post-op diet guidelines, vitamins/minerals essential post-operatively, GI anatomy of bariatric surgeries, ways to help prepare for post-op diet guidelines pre-operatively, portion/calorie-control. Provided pt with list of goals RD contact information. Questions Reviewed With Patient 11/28/2018 How ready are you to make changes regarding your weight? Number 1 = Not ready at all to make changesup to 10 = very ready. 10 How confident are you that you can change? 1 = Not confident that you will be successful making changes up to 10 = very confident. 10 Patient Understanding: good Expected Compliance: good GOALS: Eat breakfast daily Exercise 2X per week for 15 minutes Start calcium per written guidelines Follow-Up: Recommend 2-3 follow up visits to assist with lifestyle changes or per insurance (pt has been advised to verify number of visits). Time spent with patient: [address], LD [facility] [phone] documented in this encounter Plan of Treatment Not on filedocumented as of this encounter Visit Diagnoses Not on filedocumented in this encounter Care Teams Drug Safety Associate Relationship Specialty Start Date End Date Thelma Cummins PCP - General Family Practice 11/28/18 documented as of this encounter
--- OUTSIDE RECORDS SUMMARY | 2022-07-16 02:16 | XMS_ITS | Encounter Summary ---
:1985 Author Organization [place] Address [address] [place] [address] Care Team Providers Name Role Phone Thelma Cummins Primary Care Provider Encounter Details Date Type Department Care Team Description 11/28/2018 Travel Social History Tobacco Use Types Packs/Day [...] on filedocumented in this encounter Care Teams Leather Grader Relationship Specialty Start Date End Date Thelma Cummins PCP - General Family Practice 11/28/18 documented as of this encounter
--- OUTSIDE RECORDS SUMMARY | 2022-07-16 02:17 | XMS_ITS | Encounter Summary ---
:1985 Author Organization [place] Address [address] [facility] [place] [address] Care Team Providers Name Role Phone Unavailable Primary Care Provider Unavailable Encounter Details Date Type Department Care Team Description 10/21/2009 Discharge Summary [facility] Willy Alford , (Brick Baker) [facility] Results [address] [place] [address] (Wo rk) Social History Tobacco Use Types Packs/Day Years Used Date Smoking Tobacco: Never Assessed Alcohol Habits Answer Date Recorded How often [...] documented as of this encounter Progress Notes Willy Alford - 10/22/2009 2:15 PM POWER PLANT OPERATIONS MANAGER FINAL ADMISSION DIAGNOSES: 1. 29+1 week intrauterine . 2. Contractions. 3. Concern for labor. 4. Depression. 5. History of significant nausea and vomiting of . DISCHARGE DIAGNOSES: 1. 30+5 week intrauterine . 2. labor. 3. Asymmetric IUGR. 4. Positive fibronectin. 5. GBS negative. 6. Depression. 7. Glucose monitoring. PROCEDURES: 1. fibronectin x3. 2. Group beta strep collection. 3. Glucose monitoring. 4. Betamethasone course. 5. Tocolysis with nifedipine. 6. Comprehensive ultrasound. 7. BPP with Doppler. 8. NICU consult. HISTORY AND PHYSICAL: Ann-Marie Alvarado is a 24-year-old prime who presented at 29 plus 1 week by a last menstrual period of 03/20/2009 from [place], [place] with contractions and a concern for labor. She received IV fluids and betamethasone in [place]. Her contractions since she arrived were less frequent and less painful. Her baby was moving appropriately. There is no vaginal bleeding, no loss of fluid and her symptoms had started earlier on 10/10/2009 after a night of having emesis. Her primary clinic has been [facility]. Her EDC is 12/25/2009. Her dating ultrasound was performed on 06/06/2009 at 10 plus 5 weeks and she had a survey on 08/14/2009, which showed a normal JESS, 3-vessel cord, posterior placenta and normal anatomy. Her labs were drawn on 05/06/2009. Her blood type and screen O positive and antibody negative, rubella immune, hepatitis B surface antigen negative, HIV negative, syphilis nonreactive, GBS was collected at the time of admission and returned as negative. It was collected on 10/10/2009. Initial hemoglobin was 13.2. She had not yet hada glucose screen and unfortunately the betamethasone course already started. We did screen her with fasting fingerstick glucose measurements as well as postprandial glucose measurements for about a dayand a half and all of the results returned normal, but she has not had a formal GCT. Her Pap smear was negative and GC chlamydia were negative. Her initial weight was 223. PAST FLOOR STEWARD/STEWARDESS HISTORY: Again, she is a primiparous. PAST GYNECOLOGIC HISTORY: Negative. PAST MEDICAL HISTORY: Depression and frequent UTIs as a child. PAST SURGICAL HISTORY: Tonsillectomy. FAMILY HISTORY: Noncontributory. SOCIAL HISTORY: The patient is . 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 Denies anytobacco, alcohol or drug use. MEDICATIONS: Include Flintstones, Zofran. ALLERGIES: Ceclor, Duricef and Septra. REVIEW OF SYSTEMS: The patient was complaining of headache, constipation, back pain and intermittent cramping. INITIAL PHYSICAL EXAMINATION: VITAL SIGNS: The patient was afebrile with normal blood pressure and heart rate. LUNGS: Were clear. CARDIOVASCULAR: Heart was regular. Her NST was reactive with a baseline heart rate of 150 with moderate variability. There were no decelerations. The tocometer did show contractions about every 3-6 minutes. ABDOMEN: Obese, soft, nontender to palpation. Presentation was cephalic based on ultrasound [facility] and by Fernando's I was estimating about 2000 g baby. Her sterile vaginal exam was performed after the GBS was collected and her cervix was closed and about 50% effaced and -2 station. In [place], a transvaginal ultrasound was performed which showed a dynamic cervix ranging from 2.8cm to 0.8 cm with Valsalva and contractions. INITIAL LABS: Her white count was 12.8 with hemoglobin 12.7. Again, she is O positive, antibody screen negative. The patient was admitted and the plan was to observe the patient for labor and perform a fibronectin exam after waiting 24 hours after the last cervical exam. HOSPITAL COURSE: PROBLEM #1: labor. For labor, the patient was started on nifedipine. Initially, we started her on a dose of 20 mg q.8h., due to uterine irritability this dose was increased to 20 mg q.6h. and this was continued until the time of her discharge and she will continue this tocolysis and control of her symptoms until 34 weeks gestation at which time she will stop it. A fibronectin was performed on 10/12/2009, which returned positive, however, there was some cervical manipulation that needed to occur with a speculum because her cervix was quite anterior. This was repeated 24 hours later which again returned positive and was also repeated for a third time on 10/17/2009, which also r eturned positive. Her cervical exam was closed initially and on 10/17/2009, the patient had changed her cervix to about 1 cm, 60% effaced and -2 station. At that time, transvaginal ultrasound was also performed showing the cervix to be 1.8 cm in length. In terms of her labor, we also discusseda particular study with the patient and she declined. Her labor was stable and she will havea close followup and monitoring at the [facility]. Please see the next section entitled disposition. PROBLEM #2: well-being. The patient received her first betamethasone injection for lungmaturity in [place]; however, this injection was given subcutaneously which has not been studied. We repeated the full course of intramuscular betamethasone for her and she received those doses on 08/10/2009 and 08/11/2009. For wellbeing, the patient had NSTs b.i.d. which all were reassuring. She also underwent a comprehensive ultrasound exam on 10/13/2009, which showed cephalic presentation, normal movement, JESS of 13 and posterior placenta with a three-vessel cord. The abdominal circumference is lagging and it was measuring less than the 5th percentile for her dates. There was normal blood flow through the umbilical cord and again the BPP was reassuring. In terms of the laggingabdominal circumference, we recommended growth ultrasound every 3 weeks as well as weekly BPPs and Doppler studies, otherwise, NSTs were reassuring. Her next BPP will be performed on 10/24/2009 at the [facility]. PROBLEM #3: Glucose monitoring. Again, the patient was admitted around 29 weeks, she had not yet had GCT And unfortunately because she already received her course of betamethasone the GCT would have been falsely elevated potentially and so we chose to just administer blood glucose monitoring while she was inpatient, which revealed all normal blood glucoses and this was discontinued. We have not donea formal GCT. The patient did have some history of nausea and vomiting during the . She was on Zofran 8 mg ODT tablets q.8h. We were able to decrease this to 4 mg tablets every 6 hours as needed for nauseaand the patient actually did very well. She had no complaints or problems with nausea and vomiting while hospitalized. She also was started on a bowel regimen for her constipation and this included MiraLax and daily senna and the patient also complained of some difficulty sleeping and requested Ambien. Day of discharge; the patient was discharged on 10/21/2009 and a cervical exam that date revealed an unchanged cervix 1 cm, 60-70% effaced, -2 station, anterior cervix medium/soft consistency. This was unchanged from the previous exam performed on 10/17/2009. The patient has remained overall quiet and she had had a BPP performed on 10/17/2009 which showed normal Dopplers and normal JESS. There was a shortened cervical length with some funneling noted. The BPP was 8/8. DISCHARGE INSTRUCTIONS: Discharge instructions include modified bed rest. The patient will go to [place], [place] to live with her aunt. Her mother will accompany her there. She knows that she can sit up for meals and take 1 shower a day. She is to avoid stairs. No cleaning, performing household duties such as washing dishes or vacuuming. The patient also should not carry anything heavy like grocery bags or laundry baskets. She will continue her nifedipine and she was given a prescription for nifedipine as well as the remainder of her other medications that she also takes which included MiraLax, senna, Zofran, Zoloft and Ambien. FOLLOWUP: She is to follow up on 10/24/2009 at 1:30 p.m. for a appointment as well as a BPP and Doppler studies at the [facility] and further instructions will be based on her visits. Electronically signed on 10/22/2009 14:15 by WILLY ALFORD MD As dictated by KENAN MIGUEL MD MT: EM Name: ANN-MARIE ALVARADO Account: [id number] : 1985 Admit Date: Discharge Date: 10/21/2009 Document: [id number] cc: Leander Easton MD R PLANT OPERATIONS MANAGER documented in this encounter Plan of Treatment Not on filedocumented as of this encounter Visit Diagnoses Not on filedocumented in this encounter
--- OUTSIDE RECORDS SUMMARY | 2022-07-16 02:17 | XMS_ITS | Encounter Summary ---
:1985 Author Organization [place] Address [address] [place] [address] Care Team Providers Name Role Phone Jak Pacheco MD Primary Care Provider Encounter Details Date Type Department Care Team Description 11/07/2009 Historic Results INTERFACED REPORT Lexis Kong [facility] [address] [facility] [address] [place] [address] (Wo rk) Social History Tobacco Use Types [...] Procedure Name Priority Date/Time Associated Comments Diagnosis ROUTINE UA WITH STAT 11/07/2009 9:14 PM Result s for this MICROSCOPIC MATERIAL ENGINEER procedure are i n the results section. URINE CULTURE STAT 11/07/2009 9:14 PM Results for this MATERIAL ENGINEER procedure are i n the results section. ROUTINE UA WITH Routine 11/07/2009 10:35 Results for this MICROSCOPIC AM MATERIAL ENGINEER procedure are i n the results section. documented in this encounter Results (ABNORMAL) Routine UA with microscopic (11/07/2009 9:14 PM MATERIAL ENGINEER) [facility] Method Time Signature Source Midstream MISYS Urine Color Urine Yellow MISYS Appearance Urine Clear MISYS Glucose Urine Negative NEG mg/dL MISYS Bilirubin Urine Negative NEG MISYS Ketones Urine Negative NEG mg/dL MISYS Specific [place] 1.015 1.003 - MISYS Urine 1.035 Blood Urine Negative NEG MISYS pH Urine 6.5 5.0 - 7.0 MISYS pH Protein Albumin Negative NEG mg/dL MISYS Urine Urobilinogen Normal 0.0 - 2.0 MISYS mg/dL mg/dL Nitrite Urine Negative NEG MISYS Leukocyte Negative NEG MISYS Esterase Urine WBC Urine 1 0 - 2 MISYS /HPF RBC Urine 1 0 - 2 MISYS /HPF Squamous 1 0 - 1 MISYS Epithelial /HPF /HPF Urine Bacteria Urine Few (A) NEG /HPF MISYS Mucous Urine Present (A) NEG /LPF MISYS Specimen Anatomical Collection Method Collection Time Receive d Time (Source) Location / / Volume Laterality 11/07/2009 9:14 PM 0 9:13 MATERIAL ENGINEER PM MATERIAL ENGINEER Lexis C [facility] LAB - URINE ORDERABLES Performing Organization Address City/State/ZIP Code Phon e Number MISYS Urine culture (11/07/2009 9:14 PM MATERIAL ENGINEER) [facility] Method Time Signature Specimen Midstream MISYS Description Urine Culture Micro No growth MISYS Micro Report FINAL MISYS Status 11/09/2009 Specimen Anatomical Collection Method Collection Time Receive d Time (Source) Location / / Volume Laterality 11/07/2009 9:14 PM 0 9:13 MATERIAL ENGINEER PM MATERIAL ENGINEER Lexis C [facility] [place] LAB - MICRO GENERAL ORDERABL ES Performing Organization Address City/State/ZIP Code Phon e Number MISYS (ABNORMAL) Routine UA with microscopic (11/07/2009 10:35 AM MATERIAL ENGINEER) [facility] Method Time Signature Source Midstream MISYS Urine Color Urine Yellow MISYS Appearance Urine Clear MISYS Glucose Urine Negative NEG mg/dL MISYS Bilirubin Urine Negative NEG MISYS Ketones Urine Negative NEG mg/dL MISYS Specific [place] 1.014 1.003 - MISYS Urine 1.035 Blood Urine Negative NEG MISYS pH Urine 6.5 5.0 - 7.0 MISYS pH Protein Albumin Negative NEG mg/dL MISYS Urine Urobilinogen Normal 0.0 - 2.0 MISYS mg/dL mg/dL Nitrite Urine Negative NEG MISYS Leukocyte Negative NEG MISYS Esterase Urine WBC Urine 2 0 - 2 MISYS /HPF RBC Urine 2 0 - 2 MISYS /HPF Squamous 3 (H) 0 - 1 MISYS Epithelial /HPF /HPF Urine Mucous Urine Present (A) NEG /LPF MISYS Specimen Anatomical Collection Method Collection Time Receive d Time (Source) Location / / Volume Laterality 11/07/2009 10:35 11/07/2009 AM MATERIAL ENGINEER 11:06 AM MATERIAL ENGINEER Yobani Prado MD LAB - URINE ORDERABLES Performing Organization Address City/State/ZIP Code Phon e Number MISYS documented in this encounter Visit Diagnoses Not on filedocumented in this encounter Care Teams Sap Business Objects Consultant Relationship Specialty Start Date End Date Jak Pacheco MD PCP - General Family Practice 10/08/10 10/24/18 documented as of this encounter
--- OUTSIDE RECORDS SUMMARY | 2022-07-16 02:17 | XMS_ITS | Encounter Summary ---
:1985 Author Organization [place] Address [address] [place] [address] Care Team Providers Name Role Phone Jak Pacheco MD Primary Care Provider Encounter Details Date Type Department Care Team Description 10/24/2009 Historic Results [facility] [place] [address] [place] [address] [address] [place] [address] (Wo rk) Social History Tobacco Use Types [...] Procedure Name Priority Date/Time Associated Comments Diagnosis HEMOGLOBIN Routine 10/24/2009 4:19 PM Results f or this TEXTILE KNITTER procedure are i n the results section. HEMATOCRIT Routine 10/24/2009 4:19 PM Results f or this TEXTILE KNITTER procedure are i n the results section. GLUCOSE TOLERANCE Routine 10/24/2009 4:19 PM Resu lts for this GEST SCREEN 1 HOUR TEXTILE KNITTER procedure are in the results section. ROUTINE UA WITH Routine 10/24/2009 2:45 PM Result s for this MICROSCOPIC TEXTILE KNITTER procedure are i n the results section. URINE CULTURE Routine 10/24/2009 2:10 PM Results for this TEXTILE KNITTER procedure are i n the results section. documented in this encounter Results (ABNORMAL) Glucose tolerance gest screen 1 hour (10/24/2009 4:19 PM TEXTILE KNITTER) athologist Signature Glu Gest 135 (H) 60 - 130 MISYS Screen 1hr 50g mg/dL Specimen Anatomical Collection Method Collection Time Receive d Time (Source) Location / / Volume Laterality 10/24/2009 4:19 PM 0 4:06 TEXTILE KNITTER PM TEXTILE KNITTER Yobani Prado MD LAB - BLOOD ORDERABLES Performing Organization Address [facility] Phon e Number MISYS Hematocrit (10/24/2009 4:19 PM TEXTILE KNITTER) athologist [facility] Hematocrit 36.6 35.0 - 47.0 MISYS % Specimen Anatomical Collection Method Collection Time Receive d Time (Source) Location / / Volume Laterality 10/24/2009 4:19 PM 0 4:06 TEXTILE KNITTER PM TEXTILE KNITTER Yobani Prado MD LAB - BLOOD ORDERABLES Performing Organization Address [facility] Phon e Number MISYS Hemoglobin (10/24/2009 4:19 PM TEXTILE KNITTER) athologist [facility] Hemoglobin 12.5 11.7 - 15.7 MISYS g/dL Specimen Anatomical Collection Method Collection Time Receive d Time (Source) Location / / Volume Laterality 10/24/2009 4:19 PM 0 4:06 TEXTILE KNITTER PM TEXTILE KNITTER Yobani Prado MD LAB - BLOOD ORDERABLES Performing Organization Address [facility] Phon e Number MISYS (ABNORMAL) Routine UA with microscopic (10/24/2009 2:45 PM TEXTILE KNITTER) [facility] Method Time Signature Source Midstream MISYS Urine Color Urine Yellow MISYS Appearance Urine Clear MISYS Glucose Urine Negative NEG mg/dL MISYS Bilirubin Urine Negative NEG MISYS Ketones Urine Negative NEG mg/dL MISYS Specific [place] 1.013 1.003 - MISYS Urine 1.035 Blood Urine Negative NEG MISYS pH Urine 5.5 5.0 - 7.0 MISYS pH Protein Albumin Negative NEG mg/dL MISYS Urine Urobilinogen Normal 0.0 - 2.0 MISYS mg/dL mg/dL Nitrite Urine Negative NEG MISYS Leukocyte Trace (A) NEG MISYS Esterase Urine WBC Urine 10 (H) 0 - 2 MISYS /HPF RBC Urine 1 0 - 2 MISYS /HPF Squamous 3 (H) 0 - 1 MISYS Epithelial /HPF /HPF Urine Bacteria Urine Few (A) NEG /HPF MISYS Mucous Urine Present (A) NEG /LPF MISYS Specimen Anatomical Collection Method Collection Time Receive d Time (Source) Location / / Volume Laterality 10/24/2009 2:45 PM 0 3:11 TEXTILE KNITTER PM TEXTILE KNITTER Yobani Prado MD LAB - URINE ORDERABLES Performing Organization Address City/State/ZIP Code Phon e Number MISYS Urine culture (10/24/2009 2:10 PM TEXTILE KNITTER) [facility] Method Time Signature Specimen Unspecified MISYS Description Urine Culture Micro 10 to 50,000 MISYS colonies/mL Multiple species present, probable perineal Comment: contamination. Micro Report Status FINAL 10/26/2009 MIS YS Specimen Anatomical Collection Method Collection Time Receive d Time (Source) Location / / Volume Laterality 10/24/2009 2:10 PM 0 5:05 TEXTILE KNITTER PM TEXTILE KNITTER Yobani Prado MD LAB - MICRO GENERAL ORDERABL ES Performing Organization Address City/State/ZIP Code Phon e Number MISYS documented in this encounter Visit Diagnoses Not on filedocumented in this encounter Care Teams Single Spindle Screw Machine Operator Relationship Specialty Start Date End Date Jak Pacheco MD PCP - General Family Practice 10/08/10 10/24/18 documented as of this encounter
--- OUTSIDE RECORDS SUMMARY | 2022-07-16 02:17 | XMS_ITS | Encounter Summary ---
:1985 Author Organization [place] Address [address] [place] [address]. [place] [address] Care Team Providers Name Role Phone Unavailable Primary Care Provider Unavailable Encounter Details Date Type Department Care Team Description 11/11/2009 Discharge Summary [facility] Yobani Prado (Valet Manager) [facility] MD [place] Results [facility] [address] [place] [address] [place] [address] (Wo rk) Social History Tobacco Use Types [...] documented as of this encounter Progress Notes Yobani Prado - 12/01/2009 7:52 AM CDT FINAL ADMISSION DIAGNOSES: 1. A 33+5 week' intrauterine . 2. Contractions, concern for labor. DISCHARGE DIAGNOSES: 1. 33+6 week' intrauterine . 2. labor ruled out. BRIEF HISTORY OF PRESENT ILLNESS: Ann-Marie Murguia is a 24-year-old prime who presents at 33+5 weeks' complaining of regular painful contractions. Her baby has been moving. Denies any loss of fluid or vaginal bleeding and has no other complaints. She has been previously hospitalized at [facility] for concerns of a shortened cervix and labor. Her cervix has been stable and she has been staying in [place], [place] and plans to deliver in [place] if she makes it to 36 weeks with her primary doctor, Dr. Easton. Her EDC is 12/25/2009. complications include nausea and vomiting, the patient takes Zofran as needed for constipation and admission for threatened labor and depression. LABS: Blood type O positive, antibody screen negative, rubella immune, hepatitis B surfaceantigen nonreactive, HIV nonreactive, syphilis nonreactive, GBS negative, which was performed on 10/10/2009. GCT was elevated at 135. GTT was normal. She otherwise had normal Pap, GC and chlamydia. Please see the remainder of her record for further details. Initially, the patient's vital signs were stable and she was afebrile. NST was reactive and the patient was having regular contractions that were occurring every 2-5 minutes. Her abdomen is obese, gravid and nontender. Presentation is cephalic. Her cervix was noted to be 1.5, 80 and -1 and after a period of time changed to a tight 2 cm, 80% effaced, -1, and her cervix was very anterior and soft. HOSPITAL COURSE: We observed her for evidence of cervical change and contractions. The patient would have periods of contractions that would be painful and then the contractions would stop. She walkedaround for a period of time and the contractions essentially ceased. On the evening of 11/11/2009 after less than 24 hours of being hospitalized, she desired discharge home as she was having low back pain and felt like she would feel more comfortable at home. This was discussed with Dr. Prado and he agreed. LATEST ULTRASOUND: The patient did have a growth ultrasound on 10/31/2009. Initially, there was some concern when she was hospitalized for an asymmetric IUGR; however, the abdominal circumference has caught up and her estimated weight was in the 31st percentile, the head circumference was less than the 10%ile for GA percentile, but not microcephalic. All other maternal structures were normal and anatomy was normal and BPP at that time was 8 out of 8. PLAN: The patient will continue care at [facility] until 36 weeks, after which time she could deliver locally and will return home to [place]. Until then, she has been living in [place], [place] with her aunt. The patient is no longer taking any nifedipine and occasionally has these painful contractions. She has to follow up for a BPP this coming Tuesday on 11/14/2009 and a visit the following Tuesday on 11/21/2009. We reviewed labor signs and symptoms and the patient was given phone numbers to call prior to making the drive from [place], [place] to this facility. Electronically signed on 12/01/2009 07:52 by YOBANI PRADO MD As dictated by KENAN MIGUEL MD MT: ROCKY Name: ANN-MARIE MURGUIA MRN: [id number] Account: [id number] : 1985 Admit Date: Discharge Date: 11/11/2009 Document: [id number] cc: Leander Beasley MD documented in this encounter Plan of Treatment Not on filedocumented as of this encounter Visit Diagnoses Not on filedocumented in this encounter
--- OUTSIDE RECORDS SUMMARY | 2022-07-16 02:17 | XMS_ITS | Encounter Summary ---
:1985 Author Organization [place] Address [address] [place] [address] Care Team Providers Name Role Phone Jak Pacheco MD Primary Care Provider Encounter Details Date Type Department Care Team Description 10/12/2009 Historic Results INTERFACED REPORT Nelsy Beasley MD [address] [place], [place] [id number] (Wo rk) Social History Tobacco Use Types [...] Name Priority Date/Time Associated Diagnosis Comme nts FIBRONECTIN Routine 10/12/2009 8:40 AM Resu lts for this PROBATION OFFICER procedure are i n the results section. documented in this encounter Results fibronectin (10/12/2009 8:40 AM PROBATION OFFICER) [facility] Method Time Signature Positive MISYS Fibronectin Comment: After 24 weeks gestation, a positive fe adali fibronectin is reported to be a predictor of increased risk for labor in the next 14 days CALLED TO MANNIE ON BP @0955 BY [facility] Specimen Anatomical Collection Method Collection Time Receive d Time (Source) Location / / Volume Laterality 10/12/2009 8:40 AM 02/14/201 0 8:42 PROBATION OFFICER AM PROBATION OFFICER Nelsy Beasley MD LAB - BODY FLUIDS ORDERABLES Performing Organization Address City/State/ZIP Code Phon e Number MISYS documented in this encounter Visit Diagnoses Not on filedocumented in this encounter Care Teams Ice Handler Relationship Specialty Start Date End Date Jak Pacheco MD PCP - General Family Practice 10/08/10 10/24/18 documented as of this encounter
--- OUTSIDE RECORDS SUMMARY | 2022-07-16 02:17 | XMS_ITS | Encounter Summary ---
:1985 Author Organization [place] Address [address] [place] [address] Care Team Providers Name Role Phone Jak Pacheco MD Primary Care Provider Reason for Visit [facility] Physical Therapy (Routine) - Closed Specialty Diagnoses / Procedures Referred By Contact Refer red To Contact Diagnoses WC/ L5-S1 disc/ Dr. Remy Pacheco @ [facility]/ [facility]# [id number] doi: 04-29-11 adj: Stephany Bradford @ [phone] (F) [phone] - [facility] message with Stephany @ [phone] requesting 6 visits for Low back starting 05-17-11 [facility]# [id number] Remy Pacheco MD [facility] 2 doi: 04-29-[address] [place] [address] [place] [address] [place] [address] Fax: Referral ID Status Reason Start Date Expiration Date Visits V isits Requested Authorized [facility]/WC/LOWBACK Closed 05/17/2011 08/16/2011 8 Encounter Details Date Type Department Care Team Description 06/10/2011 Therapy Visit [place] [facility] Alfonso Evans S ciatica; Medicine - [place] PT HNP (herniated nucleus pulposus) Physical Therapy XXX NO INFO [address] - Lower FOUND XXX Level [address] [place] [address] [phone] Social History Tobacco Use Types Packs/Day Years [...] documented as of this encounter Progress Notes Alfonso Evans - 08/04/2011 3:54 PM CST DC see PN last visit [employer]OR OF VOLUNTEER SERVICES Alfonso Evans - 07/09/2011 1:10 PM CST Dc NS ed X2/ see PN last visit [employer] VOLUN[employer]ER [employer] documented in this encounter Plan of Treatment Not on filedocumented as of this encounter Procedures Procedure Name Priority Date/Time Associated Diagnosis Comme nts ZZC NEUROMUSCULAR Routine 06/10/2011 11:58 AM Sciatica RE-EDUCATION CDT HNP (herniated nucleus pulposus) [facility] THERAPEUTIC EXERCISES Routine 06/10/2011 11:58 AM Sc iatica CDT HNP (herniated nucleus pulposus) Z ULTRASOUND THERAPY Routine 06/10/2011 11:58 AM Sciat ica CDT HNP (herniated nucleus pulposus) documented in this encounter Visit Diagnoses Diagnosis Sciatica HNP (herniated nucleus pulposus) Displacement of intervertebral disc, sit e unspecified, without myelopathy documented in this encounter Care Teams Inbound Customer Service Representative Relationship Specialty Start Date End Date Jak Pacheco MD PCP - General Family Practice 10/08/10 10/24/18 documented as of this encounter
--- OUTSIDE RECORDS SUMMARY | 2022-07-16 02:17 | XMS_ITS | Clinical Summary ---
:1985 Author Organization [facility] [place] [address] Care Team Providers Name Role Phone Corinne Kay Primary Care Provider [phone] Allergies Active Allergy Reactions Severity Noted Date Comments Cefaclor Anaphylaxis High 02/17/2011 Sertraline Nausea And Vomiting Low 11/28/2018 Bupropion Hcl Tachycardia High 04/21/2020 Medications Medication Sig Dispensed Refills Start End Status Date Date pantoprazole Take 1 Tablet 90 Tablet 3 03/24/20 Act ad (PROTONIX) 40 mg (40 mg) by 21 delayed-release mouth once tabletIndications: daily. Gastroesophageal reflux disease, unspecified whether esophagitis present albuterol Inhale 3 mL 180 mL 0 12/16/19 Active (PROVENTIL) 0.083 % (2.5 mg) via a 22 neb nebulizer every solutionIndications: 6 hours if SOB (shortness of needed for breath), Moderate Cough 1st persistent asthma choice. with exacerbation, Bronchitis albuterol HFA Inhale 2 Puffs 1 Each 0 01/16/20 A ctive (PRO-AIR; VENTOLIN; by mouth 4 PROVENTIL) 90 times daily if mcg/actuation needed for inhalerIndications: Shortness of Mild intermittent Breath 1st reactive airway choice. disease without complication nebulizer For home use. 1 Kit 0 01/16/20 Active accessories Length of need: 22 kitIndications: prn Moderate persistent asthma with exacerbation, Mild intermittent reactive airway disease without complication busPIRone (BUSPAR) Take 1 Tablet 180 Tablet 1 01/30/20 Active 10 mg (10 mg) by 22 tabletIndications: mouth 2 times Anxiety daily. fluticasone Inhale 1 Puff 60 Each 0 01/30/20 Acti ve propion-salmeteroL by mouth 2 22 (Advair Diskus) times daily. 250-50 mcg/Dose diskus inhalerIndications: Moderate persistent asthma with exacerbation semaglutide Inject 1 mg 3 mL 11 02/02/20 Active (OZEMPIC) 1 mg/dose subcutaneous 22 (4 mg/3 once weekly. mL)Indications: Controlled type 2 diabetes mellitus without complication, without long-term current use of insulin (HC) traZODone (DESYREL) Take 1 Tablet 90 Tablet 3 03/31/20 Active 50 mg (50 mg) by 22 tabletIndications: mouth at Depression, major, bedtime. single episode, moderate (HC), Anxiety FLUoxetine (PROZAC) Take 3 Capsules 270 Capsule 3 03/31/20 Active 20 mg (60 mg) by 22 capsuleIndications: mouth every Depression, major, morning. single episode, moderate (HC), Anxiety DULoxetine Take 1 Capsule 30 Capsule 0 06/25/20 Act ad (CYMBALTA) 30 mg (30 mg) by 22 Delayed-release mouth once capsuleIndications: daily. Depression, major, single episode, moderate (HC), Other chronic pain LORazepam (ATIVAN) 1 Take 1 Tablet 10 Tablet 0 06/25/20 Active mg (1 mg) by mouth 22 tabletIndications: once daily if Anxiety needed for Anxiety. FLUoxetine (PROZAC) Take 1 Capsule 30 Capsule 0 06/25/20 Active 10 mg (10 mg) by 22 capsuleIndications: mouth once Depression, major, daily. single episode, moderate (HC) ibuprofen (ADVIL; Take 1 tablet 30 tablet 0 05/10/20 Discontinued MOTRIN) 800 mg by mouth 3 022 (*Pa tient tablet times daily if state s no needed. longer taking/Not on sending facility l ist) propranoloL Take 1 Tablet 90 Tablet 3 03/24/20 Disc ontinued (INDERAL) 10 mg (10 mg) by 022 (*P atient tabletIndications: mouth 3 times states no HTN (hypertension) daily. l onger taking/Not on sending facility l ist) benzonatate Take 1 Capsule 30 Capsule 0 12/16/19 Di scontinued (TESSALON) 100 mg (100 mg) by 22 022 (*Patient capsuleIndications: mouth 3 times states no Cough daily if needed long er for Cough. taking/No t on sending facility l ist) dulaglutide Inject 1.5 mg 6 mL 3 12/23/19 Disc ontinued (TRULICITY) 1.5 subcutaneous 022 ( *Patient mg/0.5 mL once weekly. states no subcutaneous longer penIndications: taki ng/Not on Controlled type 2 se nding diabetes mellitus fa cility list) without complication, without long-term current use of insulin (HC) semaglutide Inject 1 mg 3 mL 3 01/30/20 Discon tinued (Ozempic) 1 mg/dose subcutaneous 022 (*Patient (2 mg/1.5 mL) once weekly. sta ifrah no penIndications: long er Controlled type 2 ta amando/Not on diabetes mellitus se nding without facility l ist) complication, without long-term current use of insulin (HC) oxyCODONE Take 1 Tablet 8 Tablet 0 05/01/20 Discon tinued (ROXICODONE) 5 mg (5 mg) by mouth (*Patient immediate release every 4 hours states no tabletIndications: if needed for longer Pain of left great Pain. t aking/Not on toe sending facility l ist) Active Problems Problem Noted Date Controlled type 2 diabetes mellitus without complicati on, without 12/22/2021 long-term current use of insulin Hx of total hysterectomy 12/22/2021 Lumbar herniated disc 05/10/2011 Work-related condition 05/04/2011 Pain in back 04/29/2011 Sciatica 04/29/2011 Encounters Date Type Specialty Care Team Description 06/25/2022 Office Visit Corinne Kay Depr ession (feels like meds PA aren't working) 06/24/2022 Travel 05/01/2022 Emergency [facility] Pain of le ft great toe SOPHIA Palencia (Primary Dx) from Last 3 Months Immunizations Name Administration Dates Next Due COVID-19 vaccine (Moderna 10/09/2020, 09/11/2020 100mcg/0.5mL) PF, MDV Hepatitis B (Adult) 04/02/1998, 12/04/1997, 07/10/1997 Influenza, IIV3 (Age 6-35 mos) 09/10/2013 Influenza, IIV4 07/19/2019, 07/14/2018, 06/23/2016, 07/08/2015, 05/08/2014 MMR 12/04/1997 Td, Preservative Free (age >= 7 12/04/1997 Years) Tdap 04/14/2021, 07/08/2015, 02/27/2014, 04/25/2007 Family History Medical History Relation Name Comments Bradycardia Brother pacemaker Depression Brother ADD / ADHD Daughter 1 Depression Daughter 1 PTSD Daughter 1 Good Health Daughter 2 Diabetes Father Hypertension Father Cancer-breast Maternal Grandmother Diabetes Maternal Grandmother Atrial fibrillation Mother Diabetes Mother Hypertension Mother Multiple sclerosis Mother Diabetes Paternal Grandmother Vision loss Son Relation Name Status Comments Brother Alive Daughter 1 Alive x 2 Daughter 2 Alive Father Alive Maternal Grandmother Mother Alive Paternal Grandmother Son Alive Social History Tobacco Use Types Packs/Day Years Used Date Current Every Day Smoker Cigarettes 1 6 Smokeless Tobacco: Never Used Tobacco Cessation: Ready to Quit: No; Co unseling Given: Yes Comments: 0.5-1 pack daily Alcohol Use Standard Drinks/Week Comments No 0 (1 standard drink = 0.6 oz pure alcoho l) Sex Assigned at Date Recorded Not on file COVID-19 Exposure Response Date Recorded In the last 10 days, have you been in contact with No / Unsu re 06/24/2022 9:38 PM CDT someone who was confirmed or suspected to have Coronavirus/COVID-19? Obstetrics History Last Filed Vital Signs Vital Sign Reading Time Taken Comments Blood Pressure 124/81 06/25/2022 3:28 PM CDT Pulse 77 06/25/2022 3:28 PM CDT Temperature 36.7 ??C (98 ??F) 05/01/2022 11:46 AM CDT Respiratory Rate 16 05/01/2022 11:46 AM CDT Oxygen Saturation 97% 06/25/2022 3:28 PM CDT Inhaled Oxygen Concentration - - Weight 136.1 kg (300 lb) 06/25/2022 3:28 PM CDT Height 165.1 cm (5' 5) 05/01/2022 11:46 AM CDT Body Mass Index 49.92 05/01/2022 11:46 AM CDT Plan of Treatment Upcoming Encounters Date Type Specialty Care Team Description 07/16/2022 Office Visit Corinne Kay PA [address] [place], [place] [address] (Wo rk) Health Maintenance Due Date Last Done Comments Pneumococcal series for age 19-64 02/26/1992 (1 - PCV) COVID-19 vaccine series (3 - 12/04/2020 10/09/2020, 021 Booster for Moderna series) Influenza for age 9-49 04/29/2022 07/19/2019, 07/14/2018, 06/23/2016, Additional history exists BMI (ht and wt on same day) for 12/22/2022 12/22/2021, 03/29, age 18+ 03/24/2021, Additional history exists Depression screening for age 12+ 06/25/2023 06/25/2022, , 04/21/2020 Tetanus booster 04/14/2031 04/14/2021, 07/08/2015, 02/27/2014, Additional history exists Hepatitis B series for Diabetes Completed 04/02/1998, 03/1998, 07/10/1997 Tdap Completed 04/14/2021, 07/08/2015, 02/27/2014, Additional history exists Hepatitis C screening for age Completed 11/30/2021, 2020 18-79 Results Not on filefrom Last 3 Months Insurance Payer Benefit Plan / Subscriber ID Effective Dates Phone Addre ss Type Group WC WORKERS COMP WC GRECIA [id number] 2021-Prese [address] [address] [place] [address] WC WORKERS COMP WC SFM [id number] 2020-Prese [address] [place] [address] WC WORKERS COMP WC SFM [id number] 2020-Prese [address] [place] [address] BLUE CROSS BLUE CROSS OF [id number] 2018-Presen [address] [address] [place] [address] BLUE CROSS BLUE CROSS OF [id number] 2018-Presen [address] [address] [place] [address] [facility] [id number] 2019-Presen [address] [place] [address] JennyAnn-Marie Hung Personal/Family Self 1985 [address] [place] [id number] JennyAnn-Marie C Workers Comp Self 1985 [address] [place] [id number] JennyAnn-Marie Hung Workers Comp Self 1985 [address] [place] [id number] JennyAnn-Marie C Workers Comp Self 1985 [address] [place] [id number] Ann-Marie Alvarado Hung Personal/Family Self 1985 [address] [place] [id number] Care Teams Pilot Plant Supervisor Relationship Specialty Start Date End Date Corinne Kay PA PCP - General Physician Subsorter 01/15/[address] [place] [place] [address]
--- OUTSIDE RECORDS SUMMARY | 2022-07-16 02:17 | XMS_ITS | Encounter Summary ---
:1985 Author Organization [place] Address [address] [place] [address] Care Team Providers Name Role Phone Jak Pacheco MD Primary Care Provider Isabel Mcclelland MD Primary Care Provider [phone] Thelma Cummins Primary Care Provider Encounter Details Date Type Department Care Team Description 01/15/2012 Records - [facility] [address] [address] Social History Tobacco Use Types Packs/Day Years [...] Procedure Name Priority Date/Time Associated Comments Diagnosis SURGICAL PATHOLOGY Routine 01/15/2012 5:00 PM Res ults for this EXAM CDT procedure are i n the results section. US OB TRANSVAGINAL Routine 01/15/2012 12:00 Resul ts for this ONLY AM CDT procedure are i n the results section. US OB < 14 WEEKS Routine 01/15/2012 12:00 Results for this SINGLE-TRANSABDOMINAL AM CDT proced ure are in the results section. documented in this encounter Results Surgical Pathology Exam (01/15/2012 5:00 PM CDT) Specimen Anatomical Collection Method Collection Time Receive d Time (Source) Location / / Volume Laterality 01/15/2012 5:00 PM 2 CDT 12:01 AM CDT [facility] - 01/18/2012 2:20 PM CDT Case#: [id number] SURGICAL PATHOLOGY REPORT [facility] Status: Final Report MICRO/DIAGNOSIS: RIGHT FALLOPIAN TUBE CONTENTS, REMOVAL: ? CHORIONIC VILLI WITH ABUNDANT ANDRE SH HEMORRHAGE AND ? BLOOD CLOT, CONSISTENT WITH ECTOP IC TUBAL GESTATION Pathologist: Amanda Moore M.D. ??(Electronically Signed) [facility] CLINICAL INFORMATION: Right ectopic , estimated 7 wee il Surgeon/Performing MD.........CLAYTON MOSLEY SPECIMEN SUBMITTED : A) CONTENTS OF RIGHT FALLOPIAN TUBE GROSS DESCRIPTION: A) SOURCE: CONTENTS OF RIGHT FALLOPIAN T UBE The specimen is labeled with the patient 's name and contents of right fallopian tube. It is received in formalin and consists of multiple soft hemorrhagic tissue fragmen ts, which collectively measure 4.5 x 4.5 x 1.5 cm. The tissue i s markedly disrupted and hemorrhagic, associated with abundant fr esh blood clot. ??RS-4C NVB:sg The following procedure codes have been billed on this case:1 X LEVEL 4-G&M ([id number]); ICD9: 633.1 This test was performed at: ?[facility] ?[address] ?[place], [place] ??[address] ?Phone n umber: [phone] CC: JAYLYN MOSLEY MD [phone] CCEND: All histology slide preparation, stains and image analysis done at [facility] are performed at [facility], [address] [place] [address], [address], with f inal interpretation and frozen section analysis at the indicated laboratory. Date Collected: 01/15/12 ? Shiva e Received: ??01/17/12 Date Completed: 01/18/12 14:19 ?? Reques t: [phone] Historical Provider LAB - SAROJ AP Performing Organization Address City/State/ZIP Code Phon e Number [facility] [place] [address] [facility] [address] [place] [address] LABORATORY US OB Transvaginal Only (01/15/2012 12:00 AM CDT) Anatomical Region Laterality Modality Abdomen/Pelvis Other Specimen (Source) Anatomical Location Collection Method / Collectio n Time Received Time / Laterality Volume Narrative 01/15/2012 12:00 AM CDT See Historical [facility] Medical Record f or documentation Procedure Note Provider, Historical - 01/29/2021Formatt ing of this note might be different from the original. See Historical [facility] Medical Record f or documentation Historical Provider IMG US ORDERABLES US OB < 14 Weeks Single (01/15/2012 12:00 AM CDT) Anatomical Region Laterality Modality Abdomen/Pelvis Other Specimen (Source) Anatomical Location Collection Method / Collectio n Time Received Time / Laterality Volume Narrative 01/15/2012 12:00 AM CDT See Historical [facility] Medical Record f or documentation Procedure Note Provider, Historical - 01/29/2021Formatt ing of this note might be different from the original. See Historical [facility] Medical Record f or documentation Historical Provider IMG US ORDERABLES documented in this encounter Visit Diagnoses Not on filedocumented in this encounter Care Teams Marketing Services Rep Relationship Specialty Start Date End Date Jak Pacheco MD PCP - General Family Practice 10/08/10 10/24/18 Isabel Mcclelland MD PCP - General Family Practice 10/25/18 11/27/[address] [address] Thelma Cummins PCP - General Family Practice 11/28/18 documented as of this encounter
--- OUTSIDE RECORDS SUMMARY | 2022-07-16 02:17 | XMS_ITS | Encounter Summary ---
:1985 Author Organization [facility] Address [address] [place] [address] Care Team Providers Name Role Phone Jak Pacheco MD Primary Care Provider Encounter Details Date Type Department Care Team Description 10/17/2009 Historic Notes INTERFACED REPORT Interface, Transcript on, Social History Tobacco Use Types Packs/Day Years [...] documented as of this encounter Progress Notes Interface, Telegraph Service Clerk - 11/14/2010 9:58 AM CDT Nutrition Assessment - Reason for assessment LOS Anthropometrics - Height: 62 in - Admission weight: 222 lbs, 101 kg - UBW (Usual body 218 lbs weight): - BMI: 39.8 pre prganacy weight - Weight changes: up 4 lbs at 30 weeks gestation - Comments:: - Pt reported a hx of hyperemesis up to 20 weeks gestation. Pt has had very little weight gain up to this point. Nutrition Prescription - Nutrition Regular diet Prescription: Nutrition History - Nutrition history: Pt reports she eats a balanced diet. Pt has increased her calcium intake with chocolate milk and cottage cheese daily. Pt stated she continues to take Zofran before meals for nausea, but has not had an emesis in about 10 weeks. Pt unerstands the need to maximise her weight gain up to 15 lbs over the remained of ehr . Pt does appear able to meet her estimated nutritional needs. Labs/Medications - Labs: Reviewed - Medication comments: MVI, Zofran, Zoloft, Nifedipine, BMZ X2 Physical Findings - Comments: hyperemesis up to 20 weeks gestation. Estimated Needs - Needs based on: 99 kg, pre weight - Energy needs: 1200-6284 Kcals, 20-25 Kcals + 300 Kcals for - Protein needs: 100g, 1g/kg - Fluid needs: 2970mL, 30mL/kg Nutrition Diagnosis - Nutrition diagnosis: Potential for inadequate weight gain in R/T hyperemesis up to 20 weeks with very little weight gain. Interventions - Interventions: Reviewed medical records. Spoke with pt for current symptoms of N/V. Reviewed optimal weight gain needs for . Provied pt with the culinary favorites list for more meal options. Obtained preferences for between meal snacks. - Goals: - Weight gain of 05-1 lb per week for a total weight gain of about 15 lbs over remainder of . PO intake 75-100% of each meal for PO adequacy - Follow-up: - for weight, PO intake and snack changes if pt desires. Signatures Leaders, Nohemi Banuelos (Seevibes)[Signed 13:08] Authored: Nutrition Assessment, Anthropometrics, Nutrition Prescription, Nutrition History, Labs/Medications, Physical Findings, Estimated Needs, Nutrition Diagnosis, Interventions documented in this encounter Plan of Treatment Not on filedocumented as of this encounter Visit Diagnoses Not on filedocumented in this encounter Care Teams School Resource Officer Relationship Specialty Start Date End Date Jak Pacheco MD PCP - General Family Practice 10/08/10 10/24/18 documented as of this encounter
--- OUTSIDE RECORDS SUMMARY | 2022-07-16 02:17 | XMS_ITS | Encounter Summary ---
:1985 Author Organization [facility] Address [address] [place] [address] Care Team Providers Name Role Phone Jak Pacheco MD Primary Care Provider Reason for Visit IESHA Physical Therapy (Routine) - Closed Specialty Diagnoses / Procedures Referred By Contact Refer red To Contact Diagnoses WC/ L5-S1 disc/ Dr. Remy Pacheco @ [facility]/ [facility]# [id number] doi: 04-29-11 adj: Stephany Bradford @ [phone] (F) [phone] - [facility] message with Stephany @ [phone] requesting 6 visits for Low back starting 05-17-11 [facility]# [id number] Remy Pacheco MD [facility] 2 doi: 04-29-[address] [place] [address] [place] [address] Fax: Referral ID Status Reason Start Date Expiration Date Visits V isits Requested Authorized IESHA/WC/LOWBACK Closed 05/17/2011 08/16/2011 8 Encounter Details Date Type Department Care Team Description 05/25/2011 Therapy Visit [place] [facility] Alfonso Evans S ciatica; Medicine - [place] PT HNP (herniated nucleus pulposus) Physical Therapy XXX NO INFO [address] - Lower FOUND XXX Level [address] [place] [address] [phone] Social History Tobacco Use Types Packs/Day Years [...] Name Priority Date/Time Associated Diagnosis Comme nts ZC NEUROMUSCULAR Routine 05/25/2011 12:00 PM Sciatica RE-EDUCATION CDT HNP (herniated nucleus pulposus) [facility] THERAPEUTIC EXERCISES Routine 05/25/2011 12:00 PM Sc iatica CDT HNP (herniated nucleus pulposus) Z ULTRASOUND THERAPY Routine 05/25/2011 12:00 PM Sciat ica CDT HNP (herniated nucleus pulposus) documented in this encounter Visit Diagnoses Diagnosis Sciatica HNP (herniated nucleus pulposus) Displacement of intervertebral disc, sit e unspecified, without myelopathy documented in this encounter Care Teams Deep Fryer Assembler Relationship Specialty Start Date End Date Jak Pacheco MD PCP - General Family Practice 10/08/10 10/24/18 documented as of this encounter
--- OUTSIDE RECORDS SUMMARY | 2022-07-16 02:17 | XMS_ITS | Encounter Summary ---
:1985 Author Organization [facility] Address [address] [place] [address] Care Team Providers Name Role Phone Jak Pacheco MD Primary Care Provider Reason for Visit Reason Onset Date Comments ER F/U 12/03/2010 ADT Encounter Details Date Type Department Care Team Description 12/03/2010 Telephone [facility] Ama Pacheco MD ER F/U (ADT) [place] [address] [place] [address] [address] [place] [address] [place] [address] [phone] Social History Tobacco Use Types Packs/Day Years [...] this encounter Miscellaneous Notes Telephone Encounter - Sarah Rodriguez, FRANCOIS - 12/03/2010 9:49 AM CDT Pt left without being seen on 12-01-10 in ED, did not call. Sarah Rodriguez RN documented in this encounter Plan of Treatment Not on filedocumented as of this encounter Visit Diagnoses Not on filedocumented in this encounter Care Teams Groundskeeping Maintenance Relationship Specialty Start Date End Date Jak Pacheco MD PCP - General Family Practice 10/08/10 10/24/18 documented as of this encounter
--- OUTSIDE RECORDS SUMMARY | 2022-07-16 02:17 | XMS_ITS | Encounter Summary ---
:1985 Author Organization [facility] Address [address] [place] [address] Care Team Providers Name Role Phone Jak Pacheco MD Primary Care Provider Encounter Details Date Type Department Care Team Description 11/07/2009 Office Visit-[facility] INTERFACE [facility] DEPT Cailin Kong i [facility] [address] [facility] [address] [place] [address] (Wo rk) Social History Tobacco [...] documented as of this encounter Progress Notes Lexis Kong MD - 11/07/2009 12:00 AM CST Loom Starter: Lexis Kong Status: Final - Signature Encounter: 07 Nov 2009 Type: Chart Note MFM G3 Triage Note S: 24 yo @ 32+6wk here with cramping/contractions and diarrhea. Was seen in clinic earlier today and checked due to c/o contractions. 1.5/80% at that time. Has a history of labor and admission in September for this; she received BMZ x2 and was discharged home on nifedipine. Self discontinued nifedipine due to intolerable side effects of jitters, heart racing, headaches. Did not feel any contractions until yesterday. Vomited x 2 earlier today but no nausea now. Had vomiting off and on throughout . Diarrhea this evening. Good FM, no VB, no LOF, no discharge. O: 121/73 98.9 73 Gen: NAD Resp: nonlabored Abd: gravid, nontender, obese Cx: 1.5/80/-2 FHT: 145 baseline mod variability with accels, no decels [place]: rare contraction UA: negative A/P: 24 yo @ 32+6wk with contractions 1. UA clear, UC pending. 2. S/p BMZ. 3. As cervix was checked earlier today, fFN was not possible. Cervix exam stable but by different examiners. Plan to repeat cervix exam in 1 hour and ok for discharge home if no change. Discussed with Dr. Prado. Lexis Kong, Adi Electronically signed by:Lexis Kong M.D.,Resident Nov 07 2009 10:07PM STUDY ABROAD ADVISOR Y ABROAD ADVISOR documented in this encounter Plan of Treatment Not on filedocumented as of this encounter Visit Diagnoses Not on filedocumented in this encounter Care Teams Special Equipment Technician Relationship Specialty Start Date End Date Jak Pacheco MD PCP - General Family Practice 10/08/10 10/24/18 documented as of this encounter
--- OUTSIDE RECORDS SUMMARY | 2022-07-16 02:17 | XMS_ITS | Encounter Summary ---
:1985 Author Organization [facility] Address [address] [place] [address] Care Team Providers Name Role Phone Jak Pacheco MD Primary Care Provider Encounter Details Date Type Department Care Team Description 10/22/2009 Office Visit-[facility] INTERFACE [facility] DEPT Provider, [facility] Nurs e Social History Tobacco Use Types Packs/Day Years [...] documented as of this encounter Progress Notes Provider, [facility] Nurse - 10/22/2009 4:33 PM CST Signals Collection Technician: Lakisha Gill Status: Signed Encounter: 22 Oct 2009 Type: Hospital Disch Coordination Hospital DC Planning Hospital Discharge planning. Hospital discharge summary reviewed. ANN-MARIE ALVARADO is a 24 year old female recently discharged from hospital on 10/21/09 for , concern for labor. *Follow up appointments:. List plan: [facility] 10/24/09 at 1:30. Coun/Edu No changes. *If patient not following up in a [facility]: Patient agrees to make/arrange their follow up appointment/test Yes Reviewed with: Patient. Verbalized understanding of plan/able to repeat back instructions. Assessment Are you progressing as expected? Ann-Marie said she is not doing well. She has started having contractions, and lower back pain. She will start timing her contractions. I advised her to contact her OB GYNprovider and go the hospital to be examined. She agreed with these instructions. Signature Signed By: Lakisha Gill R.N.; 10/22/2009 4:43 PM YOUTH ASSOCIATE. documented in this encounter Plan of Treatment Not on filedocumented as of this encounter Visit Diagnoses Not on filedocumented in this encounter Care Teams Cost Control Supervisor Relationship Specialty Start Date End Date Jak Pacheco MD PCP - General Family Practice 10/08/10 10/24/18 documented as of this encounter
--- OUTSIDE RECORDS SUMMARY | 2022-07-16 02:17 | XMS_ITS | Encounter Summary ---
:1985 Author Organization [facility] Address [address] [place] [address] Care Team Providers Name Role Phone Jak Pacheco MD Primary Care Provider Encounter Details Date Type Department Care Team Description 10/14/2009 Historic Results INTERFACED REPORT Nelsy Beasley MD [address] [place] [address] (Wo rk) Social History Tobacco Use Types [...] Name Priority Date/Time Associated Diagnosis Comme nts GLUCOSE BY METER Routine 10/14/2009 6:12 AM Resul ts for this COLORING MACHINE OPERATOR procedure are i n the results section. documented in this encounter Results Glucose by meter (10/14/2009 6:12 AM COLORING MACHINE OPERATOR) P athologist Signature Glucose 86 60 - 99 [facility] mg/dL Specimen (Source) Anatomical Collection Method Collection Time Re ceived Time Location / / Volume Laterality 10/14/2009 6:12 AM 0 COLORING MACHINE OPERATOR Nelsy [facility] PO[facility] Performing Organization Address City/State/ZIP Code Phon e Number MISYS documented in this encounter Visit Diagnoses Not on filedocumented in this encounter Care Teams Tool Builder Relationship Specialty Start Date End Date Jak Pacheco MD PCP - General Family Practice 10/08/10 10/24/18 documented as of this encounter
--- OUTSIDE RECORDS SUMMARY | 2022-07-16 02:17 | XMS_ITS | Encounter Summary ---
:1985 Author Organization [facility] Address [address] [place] [address] Care Team Providers Name Role Phone Jak Pacheco MD Primary Care Provider Encounter Details Date Type Department Care Team Description 11/11/2009 Historic Results INTERFACED REPORT Interface, Transcdixie rao MD Social History Tobacco Use Types Packs/Day Years [...] Procedure Name Priority Date/Time Associated Comments Diagnosis CBC WITH PLATELETS & Routine 11/11/2009 8:35 AM R esults for this DIFFERENTIAL CDT procedure are i n the results section. ABO/RH TYPE AND Routine 11/11/2009 8:35 AM Result s for this SCREEN CDT procedure are i n the results section. documented in this encounter Results (ABNORMAL) CBC with platelets differential (11/11/2009 8:35 AM CDT) [facility] Method Time Signature MCV 87 78 - 100 MISYS fl MCH 29.8 26.5 - MISYS 33.0 pg MCHC 34.3 31.5 - MISYS 36.5 g/dL RDW 12.6 10.0 - MISYS 15.0 % WBC 11.5 (H) 4.0 - MISYS 11.0 10e9/L RBC Count 4.10 3.8 - 5.2 MISYS 10e12/L Hemoglobin 12.2 11.7 - MISYS 15.7 g/dL Hematocrit 35.6 35.0 - MISYS 47.0 % % Neutrophils 74 40 - 75 % MISYS % Lymphocytes 19 (L) 20 - 48 % MISYS % Monocytes 6 0 - 12 % MISYS % Eosinophils 1 0 - 6 % MISYS % Basophils 0 0 - 2 % MISYS Platelet Count 202 150 - 450 MIS[facility] 10e9/L Absolute 8.5 (H) 1.6 - 8.3 MISYS Neutrophil 10e9/L Absolute 2.1 0.8 - 5.3 MISYS Lymphocytes 10e9/L Absolute 0.7 0.0 - 1.3 MISYS Monocytes 10e9/L Absolute 0.1 0.0 - 0.7 MISYS Eosinophils 10e9/L Absolute 0.0 0.0 - 0.2 MIS[facility] Basophils 10e9/L Diff Method Automated MISYS Method Specimen Anatomical Collection Method Collection Time Receive d Time (Source) Location / / Volume Laterality 11/11/2009 8:35 AM 0 7:10 CDT AM CDT Transcripton Interface LAB - BLOOD ORDERABLES Performing Organization Address City/State/ZIP Code Phon e Number MISYS ABO/Rh type and screen (11/11/2009 8:35 AM CDT) [facility] Time Signature ABO O M[facility] RH(D) Pos MIS[facility] Antibody Neg M[facility] Screen Specimen 11/14/2009 M[facility] Expires Specimen Anatomical Collection Method Collection Time Receive d Time (Source) Location / / Volume Laterality 11/11/2009 8:35 AM 0 7:10 CDT AM CDT Transcripton Interface LAB - BLOOD BANK TEST ORDER Performing Organization Address City/State/ZIP Code Phon e Number MISYS documented in this encounter Visit Diagnoses Not on filedocumented in this encounter Care Teams Laborer Pie Bakery Relationship Specialty Start Date End Date Jak Pacheco MD PCP - General Family Practice 10/08/10 10/24/18 documented as of this encounter
--- OUTSIDE RECORDS SUMMARY | 2022-07-16 02:17 | XMS_ITS | Encounter Summary ---
:1985 Author Organization [facility] Address [address] [place] [address] Care Team Providers Name Role Phone Jak Pacheco MD Primary Care Provider Reason for Visit IESHA Physical Therapy (Routine) - Closed Specialty Diagnoses / Procedures Referred By Contact Refer red To Contact Diagnoses WC/ L5-S1 disc/ Dr. Remy Pacheco @ [facility]/ [facility]# [id number] doi: 04-29-11 adj: Stephany Bradford @ [phone] (F) [phone] - [facility] message with Stephany @ [phone] requesting 6 visits for Low back starting 05-17-11 [facility]# [id number] Remy Pacheco MD [facility] 2 doi: 04-29-[address] [place] [address] [place] [address] Fax: Referral ID Status Reason Start Date Expiration Date Visits V isits Requested Authorized IESHA/WC/LOWBACK Closed 05/17/2011 08/16/2011 8 Encounter Details Date Type Department Care Team Description 05/20/2011 Therapy Visit [place] for [facility] Alfonso Evans S ciatica; Medicine - [place] PT HNP (herniated nucleus pulposus) Physical Therapy XXX NO INFO [address] - Lower FOUND XXX Level [address] [place] [address] [phone] Social History Tobacco Use Types Packs/Day Years [...] Name Priority Date/Time Associated Diagnosis Comme nts [facility] MANUAL THER Routine 05/20/2011 2:57 PM Sciatica TECH,1+REGIONS,EA 15 MIN CDT HNP (herniated n ucleus pulposus) [facility] THERAPEUTIC Routine 05/20/2011 2:57 PM Sciatica EXERCISES CDT HNP (herniated nucleus pulposus) [facility] ULTRASOUND THERAPY Routine 05/20/2011 2:57 PM Sciati ca CDT HNP (herniated nucleus pulposus) documented in this encounter Visit Diagnoses Diagnosis Sciatica HNP (herniated nucleus pulposus) Displacement of intervertebral disc, sit e unspecified, without myelopathy documented in this encounter Care Teams Secretary Bookkeeper Relationship Specialty Start Date End Date Jak Pacheco MD PCP - General Family Practice 10/08/10 10/24/18 documented as of this encounter
--- OUTSIDE RECORDS SUMMARY | 2022-07-16 02:17 | XMS_ITS | Encounter Summary ---
:1985 Author Organization [facility] Address [address] [place] [address] Care Team Providers Name Role Phone Jak Pacheco MD Primary Care Provider Reason for Visit IESHA Physical Therapy (Routine) - Closed Specialty Diagnoses / Procedures Referred By Contact Refer red To Contact Diagnoses WC/ L5-S1 disc/ Dr. Remy Pacheco @ [facility]/ [facility]# [id number] doi: 04-29-11 adj: Stephany Bradford @ [phone] (F) [phone] - [facility] message with Stephany @ [phone] requesting 6 visits for Low back starting 05-17-11 [facility]# [id number] Remy Pacheco MD [facility] 2 doi: 04-29-[address] [place] [address] [place] [address] Fax: Referral ID Status Reason Start Date Expiration Date Visits V isits Requested Authorized IESHA/WC/LOWBACK Closed 05/17/2011 08/16/2011 8 Encounter Details Date Type Department Care Team Description 05/17/2011 Therapy Visit [place] for Athletic Alfonso Evans S ciatica; Medicine - [place] PT HNP (herniated nucleus pulposus) Physical Therapy XXX NO INFO [address] - Lower FOUND XXX Level [address] [place] [address] [phone] Social History Tobacco Use Types Packs/Day Years [...] documented as of this encounter Progress Notes Maia Ogden - 05/17/2011 10:15 AM CDT Subjective: Pertinent medical history includes: History of fractures, overweight, depression, asthma, migrainesand smoking. Medical allergies: yes (ceclor). Other surgeries include: None reported. Current medications: Pain medication and muscle relaxants. 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 Primary job tasks include: Repetitive tasks and prolonged standing. Oswestry Score: 68 % Objective: System Physical Exam General ROS Assessment/Plan: Alfonso Evans - 05/17/2011 8:04 AM CDT Subjective: Ann-Marie Alvarado is a 26 year old female with a lumbar condition. Condition occurred with: Bending (inj[facility] bent [facility]She is DISCOTHEQUE DANCER. Experienced L leg pain). Condition occurred: at work. This is a new condition 04/29/11. Patient reports pain: Lumbar spine left. Radiates to: Gluteals left, thigh left and foot left. Pain is described as sharp, shooting and aching and reported as 6/10. Pain is worse in the A.M. (9/10 painin am). Symptoms are exacerbated by bending, twisting, lifting, carrying, certain positions, sitting, standing and walking (lifting 17 month daughter) and relieved by rest, analgesics, NSAID's and heat. Since onset symptoms are unchanged. Special tests: MRI (L5S1 HNP). General health as reported by patient is good. Objective: System Lumbar/SI Evaluation ROM: AROM Lumbar: Flexion: Hands to knees/reproduces symptoms Ext: 50% central pain Side Bend: Left: Right: Rotation: Left: Right: Side Temple: Left: No change Right: Central pain Lumbar Myotomes: normal Lumbar DTR's: normal Lumbar Dermtomes: Lumbar dermatomes: loss to light touch-anterior thigh and medial LL on left. Neural Tension/Mobility: Left side: SLR; SLR w/DF and Slump positive. Lumbar Palpation: Palpation (lumbar): pain with central pressure low lumbar spine. Lumbar Provocation: Lumbar provocation: flexion. General ROS Assessment/Plan: Patient is a 26 year old female with lumbar complaints. Patient has the following significant findings with corresponding treatment plan. Diagnosis 1: L HNP Pain - hot/cold therapy, US, electric stimulation, manual therapy, self management and home program Decreased ROM/flexibility - manual therapy, therapeutic exercise and home program Impaired gait - gait training and home program Decreased function - therapeutic activities and home program Previous and current functional limitations: (See Goal Flow Sheet for this information) Short term and intermediate accountant goals: (See Goal Flow Sheet for this information) Communication ability: Patient appears to be able to clearly communicate and understand verbal and written communication and follow directions correctly. Treatment Explanation - The following has been discussed with the patient: RX ordered/plan of care Anticipated outcomes Possible risks and side effects This patient would benefit from PT intervention to resume normal activities. Rehab potential is good. Frequency: 2 X week Duration: for 4 weeks Discharge Plan: Achieve all LTG. Independent in home treatment program. Reach maximal therapeutic benefit. Please refer to the daily flowsheet for treatment today, total treatment time and time spent performing 1:1 timed codes. documented in this encounter Plan of Treatment Not on filedocumented as of this encounter Procedures Procedure Name Priority Date/Time Associated Diagnosis Comme nts [facility] THERAPEUTIC Routine 05/17/2011 8:28 AM Sciatica EXERCISES CDT HNP (herniated nucleus pulposus) [facility] ELECTRIC STIMULATION Routine 05/17/2011 8:28 AM Scia leydi THERAPY CDT HNP (herniated nucleus pulposus) [facility] HOT OR COLD PACKS Routine 05/17/2011 8:28 AM Sciatic a THERAPY CDT HNP (herniated nucleus pulposus) documented in this encounter Visit Diagnoses Diagnosis Sciatica HNP (herniated nucleus pulposus) Displacement of intervertebral disc, sit e unspecified, without myelopathy documented in this encounter Care Teams Train Station Agent Relationship Specialty Start Date End Date Jak Pacheco MD PCP - General Family Practice 10/08/10 10/24/18 documented as of this encounter
--- OUTSIDE RECORDS SUMMARY | 2022-07-16 02:17 | XMS_ITS | Encounter Summary ---
:1985 Author Organization [facility] Address [address] [place] [address] Care Team Providers Name Role Phone Jak Pacheco MD Primary Care Provider Encounter Details Date Type Department Care Team Description 10/27/2009 Historic Results [facility] Ashley Diaz, Hospitalists [address] [place], [place] [phone] [place], [place] [id number] (Wo rk) Social History Tobacco Use Types [...] Associated Comments Diagnosis ROUTINE UA WITH STAT 10/27/2009 3:40 PM Result s for this MICROSCOPIC PIE DOUGH ROLLER procedure are i n the results section. DRUG ABUSE SCRN 7 UR STAT 10/27/2009 3:40 PM R esults for this (/) PIE DOUGH ROLLER procedur e are in (RH, SH, UR) the results section. URINE CULTURE STAT 10/27/2009 3:40 PM Results for this PIE DOUGH ROLLER procedure are i n the results section. GLUCOSE TOLERANCE Routine 10/27/2009 9:10 AM Resu lts for this GEST STD 100 GM 3 HR PIE DOUGH ROLLER procedu re are in the results section. documented in this encounter Results (ABNORMAL) Routine UA with microscopic (10/27/2009 3:40 PM PIE DOUGH ROLLER) [facility] Method Time Signature Source Midstream MISYS Urine Color Urine Yellow MISYS Appearance Urine Clear MISYS Glucose Urine Negative NEG mg/dL MISYS Bilirubin Urine Negative NEG MISYS Ketones Urine Negative NEG mg/dL MISYS Specific [place] 1.019 1.003 - MISYS Urine 1.035 Blood Urine Negative NEG MISYS pH Urine 5.5 5.0 - 7.0 MISYS pH Protein Albumin 10 (A) NEG mg/dL MISYS Urine Urobilinogen Normal 0.0 - 2.0 MISYS mg/dL mg/dL Nitrite Urine Negative NEG MISYS Leukocyte Negative NEG MISYS Esterase Urine WBC Urine 6 (H) 0 - 2 MISYS /HPF RBC Urine 2 0 - 2 MISYS /HPF Squamous 3 (H) 0 - 1 MISYS Epithelial /HPF /HPF Urine Mucous Urine Present (A) NEG /LPF MISYS Specimen Anatomical Collection Method Collection Time Receive d Time (Source) Location / / Volume Laterality 10/27/2009 3:40 PM 0 2:56 PIE DOUGH ROLLER PM PIE DOUGH ROLLER Ashley Jimenez MD LAB - URINE ORDERABLES Performing Organization Address City/State/ZIP Code Phon e Number MISYS Drug abuse scrn 7 UR (/) (RH, SH, UR) (10/27/2009 3:40 PM PIE DOUGH ROLLER) [facility] Method Time Signature Amphetamine Qual Negative NEG MISYS Urine Comment: Cutoff for a negative amphetam ine is 500 ng/mL or less. Cannabinoids Qual Urine Negative NEG MISYS Comment: Cutoff for a negative cannabin oid is 50 ng/mL or less. Opiates Qualitative Urine Negative NEG MISY S Comment: Cutoff for a negative opiate i s 300 ng/mL or less. Pcp Qual Urine Negative NEG MISYS Comment: Cutoff for a negative PCP is 2 5 ng/mL or less. Cocaine Qual Urine Negative NEG MISYS Comment: Cutoff for a negative cocaine is 300 ng/mL or less. Specimen Anatomical Collection Method Collection Time Receive d Time (Source) Location / / Volume Laterality 10/27/2009 3:40 PM 0 2:56 PIE DOUGH ROLLER PM PIE DOUGH ROLLER Ashley Jimenez MD LAB - URINE ORDERABLES Performing Organization Address City/State/ZIP Code Phon e Number MISYS Urine culture (10/27/2009 3:40 PM PIE DOUGH ROLLER) Patholo gist Method Time Signature Specimen Midstream MISYS Description Urine Culture Micro No growth MISYS Micro Report FINAL MISYS Status 10/28/2009 Specimen Anatomical Collection Method Collection Time Receive d Time (Source) Location / / Volume Laterality 10/27/2009 3:40 PM 0 2:56 PIE DOUGH ROLLER PM PIE DOUGH ROLLER Ashley iJmenez MD LAB - MICRO GENERAL ORDERABL ES Performing Organization Address City/State/ZIP Code Phon e Number MISYS Glucose tolerance gest std 100 gm 3 hr (10/27/2009 9:10 AM PIE DOUGH ROLLER) P athologist Signature Glucose Fasting 79 60 - 94 MISYS 100 Grams mg/dL Glucose 1 Hour 123 60 - 179 MISYS 100 Grams mg/dL Glucose 2 Hour 133 60 - 154 MISYS 100 Grams mg/dL Glucose 3 Hour 135 60 - 139 MISYS 100 Grams mg/dL Specimen Anatomical Collection Method Collection Time Receive d Time (Source) Location / / Volume Laterality 10/27/2009 9:10 AM 0 9:01 PIE DOUGH ROLLER AM PIE DOUGH ROLLER Yobani Prado MD LAB - BLOOD ORDERABLES Performing Organization Address City/State/ZIP Code Phon e Number MISYS documented in this encounter Visit Diagnoses Not on filedocumented in this encounter Care Teams Ep Technologist Relationship Specialty Start Date End Date Jak Pacheco MD PCP - General Family Practice 10/08/10 10/24/18 documented as of this encounter
--- OUTSIDE RECORDS SUMMARY | 2022-07-16 02:17 | XMS_ITS | Encounter Summary ---
:1985 Author Organization [facility] Address [address] [place] [address] Care Team Providers Name Role Phone Jak Pacheco MD Primary Care Provider Encounter Details Date Type Department Care Team Description 10/13/2009 Historic Results INTERFACED REPORT Nelsy Beasley MD [address] [place] [address] (Wo rk) Social History Tobacco Use Types [...] Diagnosis Comme nts GLUCOSE BY METER Routine 10/13/2009 7:29 PM Resul ts for this MECHANICAL SUPERVISOR procedure are i n the results section. GLUCOSE BY METER Routine 10/13/2009 2:06 PM Resul ts for this MECHANICAL SUPERVISOR procedure are i n the results section. GLUCOSE BY METER Routine 10/13/2009 10:32 AM Resu lts for this MECHANICAL SUPERVISOR procedure are i n the results section. FIBRONECTIN STAT 10/13/2009 7:00 AM Resu lts for this MECHANICAL SUPERVISOR procedure are i n the results section. documented in this encounter Results (ABNORMAL) Glucose by meter (10/13/2009 7:29 PM MECHANICAL SUPERVISOR) P athologist Signature Glucose 104 (H) 60 - 99 MISYS mg/dL Specimen Anatomical Collection Method Collection Time Receive d Time (Source) Location / / Volume Laterality 10/13/2009 7:29 PM 0 7:35 MECHANICAL SUPERVISOR PM MECHANICAL SUPERVISOR Nelsy Beasley MD LAB - BEAKER POCT Performing Organization Address [facility] Phon e Number MISYS Glucose by meter (10/13/2009 2:06 PM MECHANICAL SUPERVISOR) athologist Signature Glucose 99 60 - 99 MISYS mg/dL Specimen Anatomical Collection Method Collection Time Receive d Time (Source) Location / / Volume Laterality 10/13/2009 2:06 PM 0 7:35 MECHANICAL SUPERVISOR PM MECHANICAL SUPERVISOR Nelsy Beasley MD LAB - BEAKER POCT Performing Organization Address [facility] Phon e Number MISYS Glucose by meter (10/13/2009 10:32 AM MECHANICAL SUPERVISOR) athologist Signature Glucose 94 60 - 99 MISYS mg/dL Specimen Anatomical Collection Method Collection Time Receive d Time (Source) Location / / Volume Laterality 10/13/2009 10:32 10/13/2009 AM MECHANICAL SUPERVISOR 10:40 AM MECHANICAL SUPERVISOR Nelsy Beasley MD LAB - BEAKER POCT Performing Organization Address [facility] Phon e Number MISYS fibronectin (10/13/2009 7:00 AM MECHANICAL SUPERVISOR) [facility] Method Time Signature Positive MISYS Fibronectin Comment: RESULT GIVEN TO VERNON AT 0822 ON 10.13.09 AAW After 24 weeks gestation, a positive fet al fibronectin is reported to be a predictor of increased risk for labor in the next 14 days Specimen Anatomical Collection Method Collection Time Receive d Time (Source) Location / / Volume Laterality 10/13/2009 7:00 AM 0 7:33 MECHANICAL SUPERVISOR AM MECHANICAL SUPERVISOR Nelsy Beasley MD LAB - BODY FLUIDS ORDERABLES Performing Organization Address [facility] Phon e Number MISYS documented in this encounter Visit Diagnoses Not on filedocumented in this encounter Care Teams Air Vice Marshal Relationship Specialty Start Date End Date Jak Pacheco MD PCP - General Family Practice 10/08/10 10/24/18 documented as of this encounter
--- OUTSIDE RECORDS SUMMARY | 2022-07-16 02:17 | XMS_ITS | Encounter Summary ---
:1985 Author Organization [facility] Address [address] [place] [address] Care Team Providers Name Role Phone Jak Pacheco MD Primary Care Provider Encounter Details Date Type Department Care Team Description 11/10/2009 Historic Results INTERFACED REPORT Interface, Transcdixie rao [...] Date/Time Associated Comments Diagnosis ROUTINE UA WITH Routine 11/10/2009 10:50 Results for this MICROSCOPIC PM CDT procedure are i n the results section. DRUG ABUSE SCRN 7 UR Routine 11/10/2009 10:50 Res ults for this (/) PM CDT procedur e are in (RH, SH, UR) the results section. URINE CULTURE Routine 11/10/2009 10:50 Results fo r this PM CDT procedure are i n the results section. documented in this encounter Results (ABNORMAL) Routine UA with microscopic (11/10/2009 10:50 PM CDT) Component Value Ref Test Analysis Performed At [facility] Range Method Time Signature Source Unspecified MISYS Urine Color Urine Yellow MISYS Appearance Urine Clear MISYS Glucose Urine Negative NEG MISYS mg/dL Bilirubin Urine Negative NEG MISYS Ketones Urine Negative NEG MISYS mg/dL Specific [place] 1.012 1.003 - MISYS Urine 1.035 Blood Urine Negative NEG MISYS pH Urine 6.5 5.0 - MISYS 7.0 pH Protein Albumin Negative NEG MISYS Urine mg/dL Urobilinogen Normal 0.0 - MISYS mg/dL 2.0 mg/dL Nitrite Urine Negative NEG MISYS Leukocyte Negative NEG MISYS Esterase Urine WBC Urine 1 0 - 2 MISYS /HPF RBC Urine 1 0 - 2 MISYS /HPF Squamous 2 (H) 0 - 1 MISYS Epithelial /HPF /HPF Urine Bacteria Urine Few (A) NEG /HPF MISYS Mucous Urine Present (A) NEG /LPF MISYS Specimen Anatomical Collection Method Collection Time Receive d Time (Source) Location / / Volume Laterality 11/10/2009 10:50 11/10/2009 PM CDT 10:59 PM CDT Wiliam Reza MD LAB - URINE ORDERABLES Performing Organization Address [facility] Phon e Number MISYS Drug abuse scrn 7 UR (/) (RH, SH, UR) (11/10/2009 10:50 PM CDT) [facility] Method Time Signature Amphetamine Qual Negative NEG [...] Time (Source) Location / / Volume Laterality 11/10/2009 10:50 11/10/2009 PM CDT 11:00 PM CDT Wiliam Reza MD LAB - URINE ORDERABLES Performing Organization Address [facility] Phon e Number MISYS Urine culture (11/10/2009 10:50 PM CDT) [facility] Method Time Signature Specimen Unspecified MISYS Description Urine Culture Micro <10,000 MISYS colonies/mL Mixed gram positive jelly Comment: Multiple species present, probable perin eal contamination. Susceptibility testing not routinely don e Micro Report Status FINAL 11/12/2009 MIS YS Specimen Anatomical Collection Method Collection Time Receive d Time (Source) Location / / Volume Laterality 11/10/2009 10:50 11/10/2009 PM CDT 11:00 PM CDT Transcripton Interface LAB - MICRO GENERAL ORDERABL ES Performing Organization Address City/State/ZIP Code Phon e Number MISYS documented in this encounter Visit Diagnoses Not on filedocumented in this encounter Care Teams Boring Inspector Relationship Specialty Start Date End Date Jak Pacheco MD PCP - General Family Practice 10/08/10 10/24/18 documented as of this encounter
--- OUTSIDE RECORDS SUMMARY | 2022-07-16 02:17 | XMS_ITS | Encounter Summary ---
:1985 Author Organization [facility] Address [address] [place] [address] Care Team Providers Name Role Phone Jak Pacheco MD Primary Care Provider Encounter Details Date Type Department Care Team Description 11/14/2009 Office Visit-[facility] INTERFACE [facility] DEPT Provider, [facility] Nurs e [...] as of this encounter Progress Notes Provider, [facility] Nurse - 11/14/2009 10:43 AM CDT Network Control Operators Supervisor: Nohemi Nash Status: Final Encounter: 14 Nov 2009 Type: Hospital Disch Coordination Hospital DC Planning Hospital Discharge planning. Hospital discharge summary reviewed. ANN-MARIE ALVARADO is a 24 year old female recently discharged from hospital: 33+6 weeks intrauterine labor ruled out List plan: 1. Pt will follow up with Dr. Easton on 11/21/09 Faxed discharge summary and note to Dr. Easton @ [phone]. [facility]/Edu No changes. *If patient not following up in a [facility]: Patient agrees to make/arrange their follow up appointment/test Yes Reviewed with: Patient. Verbalized understanding of plan/able to repeat back instructions. Assessment Are you progressing as expected? Yes Pt states she is doing good. She still has quite a bit of pressure. Has had a few contractions. Reviewed follow up apt. Signature Signed By: Nohemi Nash R.N.; 11/14/2009 10:47 AM MANAGER AUTOMOTIVE. documented in this encounter Plan of Treatment Not on filedocumented as of this encounter Visit Diagnoses Not on filedocumented in this encounter Care Teams Real Estate Operations Manager Relationship Specialty Start Date End Date Jak Pacheco MD PCP - General Family Practice 10/08/10 10/24/18 documented as of this encounter
--- OUTSIDE RECORDS SUMMARY | 2022-07-16 02:17 | XMS_ITS | Encounter Summary ---
:1985 Author Organization [facility] Address [address] [place] [address] Care Team Providers Name Role Phone Jak Pacheco MD Primary Care Provider Encounter Details Date Type Department Care Team Description 10/30/2009 Historic Results INTERFACED REPORT Med, Maternal , Social History Tobacco Use Types Packs/Day Years [...] Associated Comments Diagnosis ROUTINE UA WITH STAT 10/30/2009 11:00 Results for this MICROSCOPIC AM FILER AND SANDER procedure are i n the results section. WET PREPARATION Routine 10/30/2009 10:54 Results for this AM FILER AND SANDER procedure are i n the results section. documented in this encounter Results (ABNORMAL) Routine UA with microscopic (10/30/2009 11:00 AM FILER AND SANDER) [facility] Method Time Signature Source Midstream MISYS Urine Color Urine Yellow MISYS Appearance Urine Clear MISYS Glucose Urine Negative NEG mg/dL MISYS Bilirubin Urine Negative NEG MISYS Ketones Urine Negative NEG mg/dL MISYS Specific [place] 1.014 1.003 - MISYS Urine 1.035 Blood Urine Trace (A) NEG MISYS pH Urine 6.0 5.0 - 7.0 MISYS pH Protein Albumin Negative NEG mg/dL MISYS Urine Urobilinogen Normal 0.0 - 2.0 MISYS mg/dL mg/dL Nitrite Urine Negative NEG MISYS Leukocyte Negative NEG MISYS Esterase Urine WBC Urine 4 (H) 0 - 2 MISYS /HPF RBC Urine 2 0 - 2 MISYS /HPF Squamous 3 (H) 0 - 1 MISYS Epithelial /HPF /HPF Urine Bacteria Urine Few (A) NEG /HPF MISYS Mucous Urine Present (A) NEG /LPF MISYS Specimen Anatomical Collection Method Collection Time Receive d Time (Source) Location / / Volume Laterality 10/30/2009 11:00 10/30/2009 AM FILER AND SANDER 10:39 AM FILER AND SANDER Lizabeth Cohen MD LAB - URINE ORDERABLES Performing Organization Address City/[facility]/ZIP Code Phon e Number MISYS Wet prep (10/30/2009 10:54 AM FILER AND SANDER) [facility] Method Time Signature Specimen Vagina MISYS Description Micro Report FINAL MISYS Status 10/30/2009 Wet Prep Few PMNs MISYS seen Comment: No Trichomonas seen No clue cells seen No yeast seen Specimen Anatomical Collection Method Collection Time Receive d Time (Source) Location / / Volume Laterality 10/30/2009 10:54 10/30/2009 AM FILER AND SANDER 10:59 AM FILER AND SANDER Maternal Med MD [facility] LAB - MICRO GENERAL ORDERABL ES Performing Organization Address City/State/ZIP Code Phon e Number MISYS documented in this encounter Visit Diagnoses Not on filedocumented in this encounter Care Teams Silk Screen Etcher Relationship Specialty Start Date End Date Jak Pacheco MD PCP - General Family Practice 10/08/10 10/24/18 documented as of this encounter
--- OUTSIDE RECORDS SUMMARY | 2022-07-16 02:17 | XMS_ITS | Encounter Summary ---
:1985 Author Organization [facility] Address [address] [place] [address] Care Team Providers Name Role Phone Jak Pacheco MD Primary Care Provider Encounter Details Date Type Department Care Team Description 10/13/2009 Historic Lard Mixer INTERFACED REPORT Interface, MD Wiliam Social History Tobacco Use Types Packs/Day Years [...] on filedocumented in this encounter Care Teams Order Department Supervisor Relationship Specialty Start Date End Date Jak Pacheco MD PCP - General Family Practice 10/08/10 10/24/18 documented as of this encounter
--- OUTSIDE RECORDS SUMMARY | 2022-07-16 02:17 | XMS_ITS | Encounter Summary ---
:1985 Author Organization [facility] Address [address] [place] [address] Care Team Providers Name Role Phone Jak Pacheco MD Primary Care Provider Encounter Details Date Type Department Care Team Description 10/17/2009 Historic Results INTERFACED REPORT Nisha oChen MD [facility] [address] [facility] [address] [place] [phone] (Wo rk) Social History Tobacco Use Types [...] Date/Time Associated Diagnosis Comme nts FIBRONECTIN Routine 10/17/2009 7:00 AM Resu lts for this EDUCATIONAL RECRUITER procedure are i n the results section. documented in this encounter Results fibronectin (10/17/2009 7:00 AM EDUCATIONAL RECRUITER) [employer] Method Time Signature Positive MISYS Fibronectin Comment: CALLED TO BRIANNA IN ANTE,10/17/09 AT 0915 ,1002 After 24 weeks gestation, a positive fet al fibronectin is reported to be a predictor of increased risk for labor in the next 14 days Specimen Anatomical Collection Method Collection Time Receive d Time (Source) Location / / Volume Laterality 10/17/2009 7:00 AM 0 7:07 EDUCATIONAL RECRUITER AM EDUCATIONAL RECRUITER Lizabeth Cohen MD LAB - BODY FLUIDS ORDERABLES Performing Organization Address City/State/ZIP Code Phon e Number MISYS documented in this encounter Visit Diagnoses Not on filedocumented in this encounter Care Teams Oral And Maxillofacial Surgery Relationship Specialty Start Date End Date Jak Pacheco MD PCP - General Family Practice 10/08/10 10/24/18 documented as of this encounter
--- OUTSIDE RECORDS SUMMARY | 2022-07-16 02:17 | XMS_ITS | Encounter Summary ---
:1985 Author Organization [facility] Address [address] [place] [address] Care Team Providers Name Role Phone Jak Pacheco MD Primary Care Provider Reason for Visit Reason Comments Body Fluid Exposure needle stick at work Encounter Details Date Type Department Care Team Description 12/01/2010 [facility] Emergency Dept [address] [place] [address] Social History Tobacco Use Types Packs/Day Years [...] Sign Reading Time Taken Comments Blood Pressure 122/73 12/01/2010 6:36 PM CDT Pulse 68 12/01/2010 6:36 PM CDT Temperature 36.6 ??C (97.9 ??F) 12/01/2010 6:36 PM CDT Respiratory Rate 16 12/01/2010 6:36 PM CDT Oxygen Saturation 98% 12/01/2010 6:36 PM CDT Inhaled Oxygen Concentration - - Weight - - Height - - Body Mass Index - - documented in this encounter Medications at Time of Discharge Medication Sig Dispensed Refills Start Date End Date sertraline (ZOLOFT) 50 MG Take 50 mg by mouth 0 10/25/2018 tablet daily. documented as of this encounter ED Notes Mary Acuña RN - 12/01/2010 6:15 PM CDT Pt denied need to be seen by MD. Pt signed paper regarding ama. Mary Acuña RN - 12/01/2010 5:42 PM CDT Pt states she has had the Hep B vaccine series. documented in this encounter Plan of Treatment Not on filedocumented as of this encounter Procedures Procedure Name Priority Date/Time Associated Diagnosis Comme nts HIV 1 AND 2 Routine 12/01/2010 5:35 PM Results f or this ANTIBODY ([facility]) CDT procedure a re in the results section. HEPATITIS C Routine 12/01/2010 5:35 PM Results f or this ANTIBODY CDT procedure are i n the results section. HEPATITIS B SURFACE Routine 12/01/2010 5:35 PM Re sults for this ANTIBODY CDT procedure are i n the results section. documented in this encounter Results HIV 1 and 2 Antibody (12/01/2010 5:35 PM CDT) Analysis Performed At Patho logist Time Signature HIV 1&2 Negative NEG [facility] Antibody [facility] LABS Specimen Anatomical Collection Method Collection Time Receive d Time (Source) Location / / Volume Laterality 12/01/2010 5:35 PM 1 6:10 CDT PM CDT Provider Unknown LAB - BLOOD ORDERABLES Performing Organization Address City/[facility] Phon e Number [address] LABS Hepatitis C antibody (12/01/2010 5:35 PM CDT) Analysis Performed At Patho logist Time Signature Hepatitis C Negative NEG [facility] Antibody [facility] LABS Specimen Anatomical Collection Method Collection Time Receive d Time (Source) Location / / Volume Laterality 12/01/2010 5:35 PM 1 6:10 CDT PM CDT Provider Unknown LAB - BLOOD ORDERABLES Performing Organization Address [facility] Phon e Number [address] [facility] Hepatitis B surface antibody (12/01/2010 5:35 PM CDT) P athologist Signature Hep B Surface 502.0 [facility] LAB[facility] Comment: Positive, Patient is considered to be im mune to infection with hepatitis B when the value is greater than or equal to 1 2.0 mlU/mL. Specimen Anatomical Collection Method Collection Time Receive d Time (Source) Location / / Volume Laterality 12/01/2010 5:35 PM 1 6:10 CDT PM CDT Provider Unknown LAB - BLOOD ORDERABLES Performing Organization Address City/State/ZIP Code Phon e Number [address] [address] [facility] LABS documented in this encounter Visit Diagnoses Not on filedocumented in this encounter Care Teams Floor Renovator Relationship Specialty Start Date End Date Jak Pacheco MD PCP - General Family Practice 10/08/10 10/24/18 documented as of this encounter
--- OUTSIDE RECORDS SUMMARY | 2022-07-16 02:17 | XMS_ITS | Encounter Summary ---
:1985 Author Organization [place] Address [address] [place] [address] Care Team Providers Name Role Phone Jak Pacheco MD Primary Care Provider Encounter Details Date Type Department Care Team Description 10/10/2009 Historic Results INTERFACED REPORT Nelsy Beasley MD [address] [place] [address] (Wo rk) Social History Tobacco Use Types [...] Procedure Name Priority Date/Time Associated Comments Diagnosis GROUP B STREP PCR Routine 10/10/2009 11:30 Result s for this PM JOURNALISM TEACHER procedure are i n the results section. BETA HEMOLYTIC STREP Routine 10/10/2009 11:30 Res ults for this GROUP B CULTURE PM JOURNALISM TEACHER procedure ar e in the results section. CBC WITH PLATELETS & STAT 10/10/2009 11:15 Res ults for this DIFFERENTIAL PM JOURNALISM TEACHER procedure are i n the results section. ABO/RH TYPE AND STAT 10/10/2009 11:15 Results for this SCREEN PM JOURNALISM TEACHER procedure are i n the results section. documented in this encounter Results Beta strep group B r/o culture (10/10/2009 11:30 PM JOURNALISM TEACHER) [facility] Method Time Signature Specimen Vagina MISYS Description Culture Micro Incorrectly MISYS ordered by PCU/Clinic Canceled, Test credited Comment: Reordered as a GBSPCR, 10/11/09 @ 1046 lm Micro Report Status FINAL 10/11/2009 MIS YS Specimen Anatomical Collection Method Collection Time Receive d Time (Source) Location / / Volume Laterality 10/10/2009 11:30 10/10/2009 PM JOURNALISM TEACHER 11:57 PM JOURNALISM TEACHER Nelsy Beasley MD LAB - MICRO GENERAL ORDERABL ES Performing Organization Address City/State/ZIP Code Phon e Number MISYS Group B strep PCR (10/10/2009 11:30 PM JOURNALISM TEACHER) [facility] Signature Group B Strep Vaginal MISYS PCR Spec [place] Rectal Group B Strep Negative: No MISYS PCR GBS DNA detected, presumed negative for GBS or number of bacteria Comment: may be below the limit of detection of the assay. Assay performed on incubated broth cult ure of specimen using PerkvilleCycler(R) real-time PCR. Specimen Anatomical Collection Method Collection Time Receive d Time (Source) Location / / Volume Laterality 10/10/2009 11:30 10/11/2009 PM JOURNALISM TEACHER 10:45 AM JOURNALISM TEACHER Nelsy Beasley MD LAB - MICRO GENERAL ORDERABL ES Performing Organization Address City/State/ZIP Code Phon e Number MISYS (ABNORMAL) CBC with platelets differential (10/10/2009 11:15 PM JOURNALISM TEACHER) [facility] Method Time Signature MCV 86 78 - 100 MISYS fl MCH 29.5 26.5 - MISYS 33.0 pg MCHC 34.2 31.5 - MISYS 36.5 g/dL RDW 12.7 10.0 - MISYS 15.0 % WBC 12.8 (H) 4.0 - MISYS 11.0 10e9/L RBC Count 4.31 3.8 - 5.2 MISYS 10e12/L Hemoglobin 12.7 11.7 - MISYS 15.7 g/dL Hematocrit 37.1 35.0 - MISYS 47.0 % % Neutrophils 90 (H) 40 - 75 % MISYS % Lymphocytes 8 (L) 20 - 48 % MISYS % Monocytes 2 0 - 12 % MISYS % Eosinophils 0 0 - 6 % MISYS % Basophils 0 0 - 2 % MISYS Platelet Count 230 150 - 450 MISYS 10e9/L Absolute 11.6 (H) 1.6 - 8.3 MISYS Neutrophil 10e9/L Absolute 1.0 0.8 - 5.3 MISYS Lymphocytes 10e9/L Absolute 0.2 0.0 - 1.3 MISYS Monocytes 10e9/L Absolute 0.0 0.0 - 0.7 MISYS Eosinophils 10e9/L Absolute 0.0 0.0 - 0.2 MISYS Basophils 10e9/L Diff Method Automated MISYS Method Specimen Anatomical Collection Method Collection Time Receive d Time (Source) Location / / Volume Laterality 10/10/2009 11:15 10/10/2009 PM JOURNALISM TEACHER 10:56 PM JOURNALISM TEACHER [employer] Interface LAB - BLOOD ORDERABLES Performing Organization Address City/State/ZIP Code Phon e Number MISYS ABO/Rh type and screen (10/10/2009 11:15 PM JOURNALISM TEACHER) Analysis Performed At Patho logist Time Signature ABO O MISYS RH(D) Pos MISYS Antibody Neg MISYS Screen Specimen 10/13/2009 MISYS Expires Specimen Anatomical Collection Method Collection Time Receive d Time (Source) Location / / Volume Laterality 10/10/2009 11:15 10/10/2009 PM JOURNALISM TEACHER 10:56 PM JOURNALISM TEACHER [employer] Interface LAB - BLOOD BANK TEST ORDER Performing Organization Address City/State/ZIP Code Phon e Number MISYS documented in this encounter Visit Diagnoses Not on filedocumented in this encounter Care Teams Cap Lining Machine Operator Relationship Specialty Start Date End Date Jak Pacheco MD PCP - General Family Practice 10/08/10 10/24/18 documented as of this encounter
--- OUTSIDE RECORDS SUMMARY | 2022-07-16 02:17 | XMS_ITS | Encounter Summary ---
:1985 Author Organization [place] Address [address] [place] [address] Care Team Providers Name Role Phone Jak Pacheco MD Primary Care Provider Reason for Visit [facility] Physical Therapy (Routine) - Closed Specialty Diagnoses / Procedures Referred By Contact Refer red To Contact Diagnoses WC/ L5-S1 disc/ Dr. Remy Pacheco @ [facility]/ [facility]# [id number] doi: 04-29-11 adj: Stephany Bradford @ [phone] (F) [phone] - [facility] message with Stephany @ [phone] requesting 6 visits for Low back starting 05-17-11 [facility]# [id number] Remy Pacheco MD [facility] 2 doi: 04-29-[address] [place] [address] [place] [address] Fax: Referral ID Status Reason Start Date Expiration Date Visits V isits Requested Authorized [facility]/WC/LOWBACK Closed 05/17/2011 08/16/2011 8 Encounter Details Date Type Department Care Team Description 05/27/2011 Therapy Visit [place] [facility] Alfonso Evans S ciatica; Medicine - [place] PT HNP (herniated nucleus pulposus) Physical Therapy XXX NO INFO [address] - Lower FOUND XXX Level [address] [place] [address] [phone] Social History Tobacco Use Types Packs/Day Years [...] this encounter Progress Notes Alfonso Evans - 05/27/2011 2:34 PM CDT Subjective: HPI Objective: System Physical Exam General ROS Assessment/Plan: PROGRESS REPORT Progress reporting period is from 05/17 to 05/27. SUBJECTIVE Subjective changes noted by patient: She fels she has progressed a lot in past 10 days. She notes sitting is easier. She still is more sore in am, but by 10 am she is OK..She is taking ibuprofen prn, vicoden sparingly. She is tolerating with restrictions and muscle relaxer to sleep. Current pain level is 3/10 Current Pain level: 3/10. Previous pain level was . Changes in function: Yes (See Goal flowsheet attached for changes in current functional level) Adverse reaction to treatment or activity: None OBJECTIVE Changes noted in objective findings: Yes, flexion is WNL with some left buttock pain. Her slump is still quite positive ASSESSMENT/PLAN Updated problem list and treatment plan: Diagnosis 1: Back pain/HNP L5S1 Pain - hot/cold therapy andUS Decreased function - therapeutic activities and home program STG/LTGs have been met or progress has been made towards goals: Yes (See Goal flow sheet completed today.) Assessment of Progress: The patient's condition is improving. Self Management Plans: Patient has been instructed in a home treatment program. Ann-Marie continues to require the following intervention to meet STG and LTG's: PT Recommendations: This patient would benefit from continued therapy. Frequency: Per MD orders : Please refer to the daily flowsheet for treatment today, total treatment time and time spent performing 1:1 timed codes. documented in this encounter Plan of Treatment Not on filedocumented as of this encounter Procedures Procedure Name Priority Date/Time Associated Diagnosis Comme nts ZC NEUROMUSCULAR Routine 05/27/2011 2:35 PM Sciatica RE-EDUCATION CDT HNP (herniated nucleus pulposus) [facility] THERAPEUTIC EXERCISES Routine 05/27/2011 2:35 PM Sci atica CDT HNP (herniated nucleus pulposus) [facility] ULTRASOUND THERAPY Routine 05/27/2011 2:35 PM Sciati ca CDT HNP (herniated nucleus pulposus) documented in this encounter Visit Diagnoses Diagnosis Sciatica HNP (herniated nucleus pulposus) Displacement of intervertebral disc, sit e unspecified, without myelopathy documented in this encounter Care Teams Senior Web Designer Relationship Specialty Start Date End Date Jak Pacheco MD PCP - General Family Practice 10/08/10 10/24/18 documented as of this encounter
[2022-07-16 02:33] VITALS: PULSE 68; RESP 16; O2SAT 98
[2022-07-16] MEDS: LIDOCAINE 1 % PF 30 ML 10 ML INJECTION (02:37)
--- NOTE | 2022-07-16 02:44 | ED.NURSE ---
bacitracin applied, finger wrapped with tube gauze. CMS intact to finger after gauze applied.
== END 2022-07-16 02:49 | disposition home or self-care (01) ==
PROVIDERS: Emergency Provider Family Medicine; PCP Physician Assistant Medical
DX: S61.212A Laceration without foreign body of right middle finger without damage to nail, initial encounter (principal); S62.632A Displaced fracture of distal phalanx of right middle finger, initial encounter for closed fracture; W23.0XXA Caught, crushed, jammed, or pinched between moving objects, initial encounter
CPT/HCPCS: 12001; 73140; 99281; 99283; J2001

== ENCOUNTER 2022-12-26 10:45 | Emergency (ER) | payer BC, SELFPAY ==
[2022-12-26 11:05] VITALS: BP 141/82; PULSE 97; RESP 18; O2SAT 97; BMI 47.8
--- NOTE | 2022-12-26 11:22 | CRLHL7_ITS ---
For Patients: As a result of the Century Cures Act, medical imaging exams and procedure reports are released immediately into your electronic medical record. You may view this report before your referring provider. If you have questions, please contact your health care provider. INDICATION: Abdominal pain. Past history of cholecystectomy, oophorectomy and hysterectomy with tubal ligation. COMPARISON: 01 July 2020. TECHNIQUE: 145 mL Isovue-370 IV contrast. FINDINGS: Mild low attenuation of liver parenchyma. Post cholecystectomy mild biliary ductal dilatation. Benign small cyst lateral midpole right kidney. Nonobstructing 5 mm calculus lower pole right kidney. Normal appendix. No inflammation or dilatation of large or small bowel. No acute bone finding. IMPRESSION: No finding to correlate with abdominal pain. Stable 5 mm calculus lower pole left kidney. Steatosis of the liver. Please note that all CT scans at this facility use dose modulation, iterative reconstruction, and/or weight-based dosing when appropriate to reduce radiation dose to as low as reasonably achievable. Dictated by Bobby Root MD @ 12/26/2022 12:16:19 PM (Electronically Signed)
--- OUTSIDE RECORDS SUMMARY | 2022-12-26 11:33 | XMS_ITS | Continuity of Care Document ---
Author Name Unknown Organization [facility] Address [address] [address] [place] [address] Phone Care Team Providers Care Commercial Director Name Role Phone Nicky NAIK, Villalobos Unavailable Unavailable Allergies, Adverse Reactions, Alerts Substance Reaction Status Criticality bupropion Active No Information sertraline Active No Information cefaclor Active No Information Medications Medication Instructions Dosage Effective Dates (start - stop) Status Comments propranolol 10 mg tablet take 1 tablet by oral route 3 times every day as needed 10 MG - Active pantoprazole 40 mg tablet,delayed release take 1 tablet by oral route every day 40 MG - Active trazodone 50 mg tablet take 1 tablet by oral route every bedtime as needed 50 MG - Active fluoxetine 60 mg tablet take 1 tablet by oral route every day in the morning 60 MG - Active albuterol sulfate HFA 90 mcg/actuation aerosol inhaler inhale 2 puff by inhalation route every 4 - 6 hours as needed 180 MCG - Active ibuprofen 800 mg tablet take 1 tablet by oral route 3 times daily as needed - Active metformin ER 500 mg tablet,extended release 24hr take 2 tablet by oral route every day 1000 MG - Active Procedures Procedure Date New Level 4 or 45-59 min Advance Directives Directive Yes / No Effective Date File Name No Information Encounters Encounter Description Practice Location Reason(s) For Visit Diagnoses Date Provider Providers Copied on Encounter [facility], [address] [address], [place], [id number], [place] tel:[phone] [facility] No Information 0 Nicky Villalobos. [address] [facility], [place], [id number], [place]. tel:[phone] New Level 4 or 45-59 min [facility], [address] [address], [place], [place], [id number], [place] tel:[phone] [facility] GI Symptoms or Concerns (chief complaint) HepatomegalySplen omegalyNAFLD (nonalcoholic fatty liver disease)Status post cholecystectomyIr ritable bowel syndrome with diarrheaChronic GERDSmokingHistor y of obstructive sleep apnea 0 No Information Referring Provider: Referral Self. [facility], [address] [address], [place], [place], [id number], [place] tel:[phone] [facility] No Information 0 No Information [facility], [address] [address], [place], [place], [id number], [place] tel:[phone] [facility] No Information 0 Tiera Daigle. [address] [facility], [place], [place], [id number], [place]. tel:[phone] Family History Family Member Type Diagnosis Age At Onset Mother Problem (finding) irritable bowel syndrom e Mother Problem (finding) asthma Immunizations Vaccine Date Status Comments Afluria Qd administered Note: [facility] bi-directional interface ; Source: Other Registry Afluria Qd administered Note: [facility] bi-directional interface ; Source: Other Registry Afluria Qd administered Note: [facility] bi-directional interface ; Source: Other Registry Afluria Qd administered Note: [facility] bi-directional interface ; Source: Other Registry tetanus toxoid, reduced diphtheria toxoid, and acellular pertussis vaccine, adsorbed administered Note: [facility] b i-directional interface ; Source: Other Registry Afluria Qd administered Note: M [facility] bi-directional interface ; Source: Other Registry tetanus toxoid, reduced diphtheria toxoid, and acellular pertussis vaccine, adsorbed administered Note: [facility] b i-directional interface ; Source: Other Registry Influenza, seasonal, injecta ble, preservative free administered Note: [facility] bi-direct ional interface ; Source: Other Registry tetanus toxoid, reduced diphtheria toxoid, and acellular pertussis vaccine, adsorbed administered Note: [facility] b i-directional interface ; Source: Other Registry Engerix-B administered Note: [facility] bi-d irectional interface ; Source: Other Registry measles, mumps and rubella v irus vaccine administered Note: [facility] bi-direct ional interface ; Source: Other Registry tetanus and diphtheria toxoi ds, adsorbed, preservative free, for adult use (5 Lf of tetanus toxoid and 2 Lf of diphtheria toxoid) administered Note: [facility] bi-direct ional interface ; Source: Other Registry Engerix-B administered Note: [facility] bi-d irectional interface ; Source: Other Registry Engerix-B administered Note: [facility] bi-d irectional interface ; Source: Other Registry Payers Payer name Insurance type Covered alliance party ID Authoriza tion(s) No Information Social History Type Description Quantity Date Captured Comments Sex Female Smoking Status No Information Chief Complaint And Reason For Visit No Information Reason For Referral Reason For Referral No Information Plan Of Treatment Date Type Action Status Referral Ordered: PT/INR Appointment date/timeframe: -today ordered History Of Present Illness Encounter Date Complaint History Of Prese nt Illness GI Symptoms or Concerns We had a new consultation virtual visit today with Ms. Ann-Marie Alvarado, date of 1985. Consent was obtained. Only the patient was present. Total time spent was 46 minutes.REASON FOR CONSULTATIONHepatosplenomegaly.Ms. Alvarado is a 35-year-old woman who was referred to our clinic for consultation on the above-mentioned issues by her primary physician. She was recently diagnosed with recurrent kidney stones in January through her workup. A CT scan was obtained. The radiologist reported hepatomegaly and splenomegaly. The patient rarely uses alcohol and there is no family history of liver disease. Her BMI is approximately 46.5. Apart from the kidney stones, she only had issues with asthma.She denies dysphagia, odynophagia, hematemesis, hematochezia, melena, jaundice, dark urine, and antione-colored stool. She does have issues with IBS, but she consumes a lot of sugar-free foods and refreshments because of her diabetes.Allergies and medications were re Functional Status Date Functional Assessmen t No Information Instructions Date Instruction Additional Infor mation Sugar free products may be the i ssue Related to Irritable bowel syndrome with diarrhea LOW FODMAP diet Related to Irrit able bowel syndrome with diarrhea Will discuss colonos copy after your kidney stones issues have resolved Related to Irritable bowel syndrome with diarrhea Pls discuss the poss ibility of HEMATOLOGY cons with your PCP Related to Splenomegaly Pls discuss the poss ibility of HEMATOLOGY cons with your PCP Related to Splenomegaly Non-Alcoholic Fatty Liver Diseas e Related to Hepatomegaly Assessments Type Assessment Date No Information Patient Care Teams Name Effective Dates (start - stop) Status Members No Information
--- NOTE | 2022-12-26 11:35 | ED_ITS ---
HPI - Nausea/Vomiting/Diarrhea General Chief complaint: Nausea/Vomiting Stated complaint: vomiting Time Seen by Provider: 12/26/22 11:14 History of Present Illness HPI Narrative: Patient is a 37-year-old type 2 insulin-dependent diabetic who presents to the ER with 4 hours nausea vomiting diarrhea. She has had no blood in her vomitus or stool. She has abdominal pain that is 4/10 localized to the right lower quadrant. She has had no other sick contacts no recent illnesses she has o therwise been in her usual state of health. She states that she has not been eating or drinking today but felt well yesterday. Patient took her normal medications this morning. She has no polyuria no polydipsia no polyphasia. No chest pain no shortness of breath orthopnea no PND no rash no fever. Related Data Home Medications Medication Instructions Recorded Confirmed duloxetine 60 mg capsule,delayed 60 mg PO DAILY 12/26/22 12/26/22 release insulin glargine-yfgn 100 unit/mL 10 unit subcut QPM 12/26/22 12/26/22 (3 mL) subcutaneous pen (Semglee (insulin glargine-yfgn) Pen) semaglutide 0.25 mg or 0.5 mg (2 0.5 mg subcut 12/26/22 mg/3 mL) subcutaneous pen injector (Ozempic) trazodone 50 mg tablet 50 mg PO QPM 12/26/22 12/26/22 Allergies Allergy/AdvReac Type Severity Reaction Status Date / Time cefaclor [From Ceclor] AdvReac Severe Verified 12/26/22 11:43 [facility] Medical History (Updated 12/26/22 @ 13:10 by James Mercer MD) Diabetes mellitus ?E11.9 - Type 2 diabetes mellitus without complications (ICD-10) Social History Smoking Status: Never smoker How often do you have a drink containing alcohol: never AUDIT-C Alcohol total score: 0 Non-prescribed substance use: denies use service: No Exam Narrative: Exam Narrative: EXAM GENERAL: Patient appears comfortable and well. Obese EYES: No scleral icterus. LYMPH: No supraclavicular or cervical lymphadenopathy. SKIN: Visible skin seen during exam normal or with benign process only. EXT: No dependent lower extremity pedal edema. HEART: Regular rate and rhythm with no murmurs, rubs, or gallops. LUNGS: Clear to auscultation bilaterally with no crackles or wheezes. ABD: Soft, non tender, non distended. Minimal tenderness to palpation no rebound mass or guarding hypoactive but present bowel sounds throughout. PSYCH: Good eye contact, speech is not pressured. Const: Vital Signs, click to edit/add: Vital Signs - 24 hr 12/26/22 11:05 Pulse Rate [Left P ulse Oximeter] 97 Respiratory Rate 18 Blood Pressure [Le ft Upper Arm] 141/82 H Pulse Oximetry 97 Oxygen Delivery Me thod Room Air Course Course Hospital Course: Patient seen examined. IV was placed 1 L of normal saline given 4 mg of IV Zofran given 30 mg of IV Toradol given. CBC CMP amylase UA CT of the abdomen pelvis was ordered. Of note patient is status post hysterectomy. Vital Signs Vital signs: Initial Vital Signs Temperature Source Temporal Artery Scan 12/26/22 11:05 Pulse Rate 97 12/26/22 11:05 Pulse Rhythm Regular 12/26/22 11:05 Respiratory Rate 18 12/26/22 11:05 Blood Pressure 141/82 H 12/26/22 11:05 Blood Pressure Mean 101 12/26/22 11:05 Blood Pressure Position Sitting 12/26/22 11:05 Pulse Oximetry 97 12/26/22 11:05 Oxygen Delivery Method Room Air 12/26/22 11:05 Vital Signs Pulse Rate 97 12/26/22 11:05 Respiratory Rate 18 12/26/22 11:05 Blood Pressure 141/82 H 12/26/22 11:05 Pulse Oximetry 97 12/26/22 11:05 Oxygen Delivery Method Room Air 12/26/22 11:05 Pulse Rate 97 12/26/22 11:05 Respiratory Rate 18 12/26/22 11:05 Blood Pressure 141/82 H 12/26/22 11:05 Pulse Oximetry 97 12/26/22 11:05 Oxygen Delivery Method Room Air 12/26/22 11:05 MDM - Nausea/Vomiting/Diarrhea MDM Narrative Medical decision making narrative: Patient is a 37-year-old woman who presents with acute nausea vomiting diarrhea. Her lab work is unremarkable with the exception of leukocytosis. Her urine is unremarkable. Lactate is normal CT of the abdomen pelvis is unremarkable. I did her with normal saline bolus 4 mg of IV Zofran 30 mg of IV Toradol. She is feeling better and at this time she is discharged home with the diagnosis of gastroenteritis to advance her diet activity as tolerated Zofran as needed follow-up with primary care as needed. Differential Diagnosis Differential diagnosis: Likely traveler's diarrhea, food poisoning, gastroenteritis, drug-induced nausea and vomiting and dehydration Lab Data Labs: Lab Results 12/26/22 12/26/22 12/26/22 Range/Units 11:22 11:30 12:15 WBC 18.17 H (4.50-11.00) K/uL RBC 5.63 H (4.00-5.20) m/uL Hgb 16.5 H (12.0-16.0) gm/dL Hct 48.7 (33.0-51.0) % MCV 87 (80-100) fL MCH 29 (26-34) pg MCHC 34 (32-36) gm/dL RDW Coeff of Ivette 12.0 (11.5-15.5) % Plt Count 272 (140-440) K/uL Neut % (Auto) 86.9 H (42.0-72.0) % Lymph % (Auto) 6.4 L (20-44) % [place] % (Auto) 5.2 (0.0-11.0) % Eos % (Auto) 0.4 (0.0-7.0) % Baso % (Auto) 0.1 (0.0-3.0) % Neut # (Auto) 15.80 H (1.7-7.0) K/uL Lymph # (Auto) 1.20 (0.90-2.90) K/uL [place] # (Auto) 0.90 (0.00-0.90) K/UL Eos # (Auto) 0.10 (0.00-0.50) K/uL Baso # (Auto) 0.00 (0.00-0.30) K/uL Sodium 138 (135-149) mmol/L Potassium 4.1 (3.6-5.1) mmol/L Chloride 104 (96-114) mmol/L Carbon Dioxide 24 (20-32) mmol/L BUN 15 (5-24) mg/dL Creatinine 0.7 (0.5-1.5) mg/dL Estimated Creat Clear 104.01 Estimated GFR 115 ml/min Glucose 173 H (60-115) mg/dL Lactate 1.6 (0.5-1.9) mmol/L Calcium 8.8 (8.4-10.6) mg/dL Total Bilirubin 1.0 (0.1-1.5) mg/dL AST 28 (12-35) U/L ALT 33 (4-35) U/L Alkaline Phosphatase 74 (40-150) U/L Total Protein 7.6 (6.0-8.3) g/dL Albumin 4.5 (3.3-5.0) g/dL Amylase 67 (18-89) U/L Urine Color Yellow (Yellow) Urine Appearance Clear (Clear) Urine pH 5.5 (5.0-8.5) Ur Specific [place] <= 1.005 (1.000-1.030) Urine Protein Negative (Negative) Urine Glucose (UA) Negative (Negative) Urine Ketones 1+ A (Negative) Urine Blood Trace-intact A (Negative) Urine Nitrite Negative (Negative) Urine Bilirubin Negative (Negative) Urine Urobilinogen 0.2 (0.2-1.0) Ur Leukocyte Esterase Negative (Negative) Discharge Plan Discharge Clinical Impression: Gastroenteritis Patient Disposition: Home, Self-Care Condition: Stable Instructions: Gastroenteritis (ED) Additional Instructions: Advance diet as tolerated Zofran as needed Hydrate Follow-up with primary care as needed. Activity Level: No Restrictions Discharge Diet: Regular Prescriptions: No Action trazodone 50 mg tablet 50 mg PO QPM duloxetine 60 mg capsule,delayed release(DR/EC) 60 mg PO DAILY insulin glargine-yfgn [Semglee(insulin glarg-yfgn)Pen] 100 unit/mL (3 mL) insulin pen 10 unit subcut QPM Ozempic 0.25 mg or 0.5 mg (2 mg/3 mL) pen injector 0.5 mg subcut Follow Up/Referrals: Corinne Kay PA-C [Primary Care Provider] - Stand Alone Forms: MyHealth Info Instructions
[2022-12-26] MEDS: ONDANSETRON 2 MG/ML inj 4 MG IVP (11:40)
[2022-12-26] MEDS: KETOROLAC 30 MG/ML inj IVP (11:40)
[2022-12-26] MEDS: 0.9 % SODIUM CHLORIDE 1000 ml 1,000 ML IV (11:40)
[2022-12-26 11:45] LABS: Basophils Percent Auto 0.1 % (0.0-3.0); Eosinophils Percent Auto 0.4 % (0.0-7.0); Hematocrit 48.7 % (33.0-51.0); Hemoglobin* 16.5 gm/dL (12.0-16.0); Lymphocytes Percent Auto 6.4 % (20-44); Mean Corpuscular HGB Conc 34 gm/dL (32-36); Mean Corpuscular Hemoglobin 29 pg (26-34); Mean Corpuscular Volume 87 fL (80-100); Monocytes Percent Auto 5.2 % (0.0-11.0); Neutrophils Percent Auto 86.9 % (42.0-72.0); Platelet Count* 272 K/uL (140-440); Red Blood Count 5.63 m/uL (4.00-5.20); White Blood Count* 18.17 K/uL (4.50-11.00)
[2022-12-26 11:50] LABS: Albumin* 4.5 g/dL (3.3-5.0); Chloride* 104 mmol/L (96-114); Slide Review Reflex No
[2022-12-26 11:51] LABS: Potassium* 4.1 mmol/L (3.6-5.1); Sodium* 138 mmol/L (135-149)
[2022-12-26 11:53] LABS: Amylase* 67 U/L (18-89); Creatinine* 0.7 mg/dL (0.5-1.5); Est. Creatinine Clearance* 104.01; Estimated Glomerular Filt Rate 115 ml/min
[2022-12-26 11:54] LABS: Alanine Aminotransferase* 33 U/L (4-35); Alkaline Phosphatase* 74 U/L (40-150); Aspartate Amino Transferase* 28 U/L (12-35); Blood Urea Nitrogen* 15 mg/dL (5-24); Calcium* 8.8 mg/dL (8.4-10.6); Carbon Dioxide* 24 mmol/L (20-32); Glucose* 173 mg/dL (60-115); Total Protein* 7.6 g/dL (6.0-8.3)
[2022-12-26 12:22] LABS: Lactate* 1.6 mmol/L (0.5-1.9)
[2022-12-26 13:00] LABS: Appearance Urine Clear (Clear); Bilirubin Urine Negative (Negative); Blood Urine Trace-intact (Negative); Color Urine Yellow (Yellow); Glucose Urine Negative (Negative); Ketones Urine 1+ (Negative); Leukocyte Esterase Urine Negative (Negative); Nitrite Urine Negative (Negative); Protein Urine Negative (Negative); Specific Gravity Urine <= 1.005 (1.000-1.030); Urobilinogen Urine 0.2 (0.2-1.0); pH Urine 5.5 (5.0-8.5)
[2022-12-26 13:11] LABS: Squamous Epithelial Cell Urine Few (None-Few); WBC Urine 0-2 (0-5)
== END 2022-12-26 13:22 | disposition home or self-care (01) ==
PROVIDERS: Emergency Provider Internal Medicine; PCP Physician Assistant Medical
DX: K52.9 Noninfective gastroenteritis and colitis, unspecified (principal)
CPT/HCPCS: 36415; 74177; 80053; 81003; 81015; 82150; 83605; 85025; 96374; 96375; 99283; 99284; 99285; J1885; J2405; J7030; Q9967

== ENCOUNTER 2023-12-07 18:43 | Emergency (ER) | payer BC, SELFPAY ==
[2023-12-07] VITALS (12 sets, daily range): BP systolic 117–141; BP diastolic 80–84; PULSE 61–72; RESP 16–18; TEMP 36.7; O2SAT 92–97; BMI 48.6
--- NOTE | 2023-12-07 19:28 | ED.CHESTPAIN ---
HPI - Chest Pain General Time Seen by Provider: 19:28 Date Seen: 12/07/23 Chief Complaint: Chest Pain Stated Complaint: Heart palpitations, chest pressure Time Seen by Provider: 12/07/23 19:28 Source: patient and RN notes reviewed Mode of arrival: ambulatory Limitations: no limitations History of Present Illness HPI narrative: This 38yo female is presenting to the ED with concern of palpitations and chest pressure. She has noted increased palpitations over the last 3 days or so. Since around noon today have significantly worsened. Noted chest pressure today with this. Tried one prn propranolol last night, doesn't feel that it helped. Has baseline heartburn but doesn't feel that this is personal banking representative of that. Is known to have PVC/PAC's. She took her BP at home while standing and was found to be 155/105. Her mom has hx AFIB, hx ablations and pacemaker. Her brother also has AFIB. She has had a hysterectomy, no contraceptives. Only drinks 2 coffees in the am, no other caffeine sources. Has not been sick or ill with anything else, no URI symptoms. She doesn't feel well with this. MD complaint: chest discomfort Prior episodes: Yes Related Data Home Medications Medication Instructions Recorded Confirmed duloxetine 60 mg capsule,delayed 60 mg PO DAILY 12/26/22 06/04/23 release trazodone 50 mg tablet 50 mg PO QPM 12/26/22 06/04/23 propranolol 10 mg tablet 10 mg PO DAILY 12/07/23 12/07/23 semaglutide 0.25 mg or 0.5 mg (2 0.5 mg subcut 12/07/23 mg/3 mL) subcutaneous pen injector (Ozempic) tirzepatide 2.5 mg/0.5 mL 2.5 mg subcut 12/07/23 subcutaneous pen injector (Mounjaro) Previous Rx's Medication Instructions Recorded albuterol sulfate 2.5 mg/0.5 mL 5 mg inhalation QID PRN cough #30 06/04/23 solution for nebulization ea benzonatate 200 mg capsule 200 mg PO BID-TID PRN cough #30 06/04/23 caps prednisone 20 mg tablet 20 mg PO QDAY back pain #18 tabs 06/04/23 Allergies Allergy/AdvReac Type Severity Reaction Status Date / Time cefaclor [From Ceclor] AdvReac Severe Verified 12/07/23 18:55 Review of Systems Status of ROS Reports: 6 or more systems reviewed and unremarkable except as noted in History and below [facility] Medical History Diabetes mellitus ?E11.9 - Type 2 diabetes mellitus without complications (ICD-10) Social History Smoking Status: Never smoker Do you use any of these nicotine containing products: None Second hand tobacco smoke exposure: No How often do you have a drink containing alcohol: never AUDIT-C Alcohol total score: 0 Non-prescribed substance use: denies use service: No Exam Const Vital Signs, click to edit/add: Vital Signs - 24 hr 12/07/23 18:51 12/07/23 19:51 12/07/23 19:52 Temperature 98.0 F Pulse Rate 67 64 Pulse Rate [Pulse Oximeter] 72 Respiratory Rate 16 Blood Pressure 141/84 H Blood Pressure [Right Upper Arm] 117/80 Pulse Oximetry 97 96 97 Oxygen Delivery Method Room Air Room Air 12/07/23 20:00 12/07/23 20:10 12/07/23 20:33 Temperature Pulse Rate 67 69 Pulse Rate [Pulse Oximeter] Respiratory Rate Blood Pressure Blood Pressure [Right Upper Arm] Pulse Oximetry 96 96 95 Oxygen Delivery Method 12/07/23 21:00 Temperature Pulse Rate 68 Pulse Rate [Pulse Oximeter] Respiratory Rate Blood Pressure Blood Pressure [Right Upper Arm] Pulse Oximetry 93 Oxygen Delivery Method 38-year-old female is alert, interactive, no apparent distress. Pupils equal and round. Sclera clear, conjugate gaze. She is wearing glasses. Symmetrical facial function, cheeks to look mildly flush but no rash. Next thicker but do not appreciate a vein distention. Lungs are clear, good air entry, no tachypnea. CV regular rate and rhythm, no murmur, normal S1-S2, no S3-S4. Abdomen is obese but soft, nontender. No calf tenderness, no appreciable lower extremity edema. Patient was ambulatory into the ED of her own accord. Documenting provider has reviewed patient's vital signs: yes Course Course ED Course: Patient will be monitored on cardiac monitoring and pulse oximetry. Her EKG has been done and is normal. Will place IV, get appropriate labs including troponin. Her Well's for PE is low risk and PERC rule negative. Look at portable chest x-ray. Reviewed that PAC/PVC are typical benign. We will see if see any concerning rhythms while here. Reevaluation(s) Time of Reevaluation #1: 21:54 Reevaluation #1: Have reviewed with nursing staff, there have been no cardiac monitoring alarm set have went off at all on this patient will here. No rhythm disturbances. We have not even noted any PACs or PVCs. Did review this with the patient, she does look mildly flush but is not febrile. We discussed doing triple swab in case she might be coming down with something. She would like that. If she is positive for influenza, will send in standard dosing of Tamiflu for treatment. If positive for COVID, would recommend regular does Paxlovid per package instructions. Patient did have a mild cough once as I was talking to her during this time frame. This is what actually made me think of her possibly coming down with viral illness. Vital Signs Vital signs: Initial Vital Signs Temperature 98.0 F 12/07/23 18:51 Temperature Source Temporal Artery Scan 12/07/23 18:51 Pulse Rate 72 12/07/23 18:51 Pulse Rhythm Regular 12/07/23 18:51 Pulse Strength 3+ Normal 12/07/23 18:51 Respiratory Rate 16 12/07/23 18:51 Blood Pressure 117/80 12/07/23 18:51 Blood Pressure Mean 92 12/07/23 18:51 Blood Pressure Position Sitting 12/07/23 18:51 Pulse Oximetry 97 12/07/23 18:51 Oxygen Delivery Method Room Air 12/07/23 18:51 Vital Signs Temperature 98.0 F 12/07/23 18:51 Pulse Rate 72 12/07/23 18:51 Respiratory Rate 16 12/07/23 18:51 Blood Pressure 117/80 12/07/23 18:51 Pulse Oximetry 97 12/07/23 18:51 Oxygen Delivery Method Room Air 12/07/23 18:51 Temperature 98.0 F 12/07/23 18:51 Pulse Rate 68 12/07/23 21:00 Respiratory Rate 16 12/07/23 18:51 Blood Pressure 141/84 H 12/07/23 19:51 Pulse Oximetry 93 12/07/23 21:00 Oxygen Delivery Method Room Air 12/07/23 19:51 MDM - Chest Pain Lab Data Attestation: I reviewed the patient's lab results. Labs: Lab Results 12/07/23 12/07/23 12/07/23 Range/Units 19:55 19:55 19:55 WBC 12.42 H (4.50-11.00) K/uL RBC 5.10 (4.00-5.20) m/uL Hgb 14.8 (12.0-16.0) gm/dL Hct 43.9 (33.0-51.0) % MCV 86 (80-100) fL MCH 29 (26-34) pg MCHC 34 (32-36) gm/dL RDW Coeff of Ivette 11.8 (11.5-15.5) % Plt Count 281 (140-440) K/uL Neut % (Auto) 61.1 (42.0-72.0) % Lymph % (Auto) 30.3 (20-44) % [place] % (Auto) 6.5 (0.0-11.0) % Eos % (Auto) 1.8 (0.0-7.0) % Baso % (Auto) 0.2 (0.0-3.0) % Neut # (Auto) 7.60 H (1.7-7.0) K/uL Lymph # (Auto) 3.80 H (0.90-2.90) K/uL [place] # (Auto) 0.80 (0.00-0.90) K/UL Eos # (Auto) 0.20 (0.00-0.50) K/uL Baso # (Auto) 0.00 (0.00-0.30) K/uL Abs Immat Gran (auto) 0.00 (0.00-0.30) K/uL Imm/Tot Granulo (auto) 0.1 % Sodium 137 (135-149) mmol/L Potassium 3.8 (3.6-5.1) mmol/L Chloride 105 (96-114) mmol/L Carbon Dioxide 23 (20-32) mmol/L Anion Gap 9 (7-15) mEq/L BUN 15 (5-24) mg/dL Creatinine 0.7 (0.5-1.5) mg/dL Estimated Creat Clear 99.01 Estimated GFR 114 ml/min Glucose 119 H (60-115) mg/dL Calcium 9.0 (8.4-10.6) mg/dL Magnesium 2.1 Cancelled (1.5-2.6) mg/dL Total Bilirubin 0.5 (0.1-1.5) mg/dL AST 24 (12-35) U/L ALT 30 (4-35) U/L Alkaline Phosphatase 76 (40-150) U/L Troponin I < 0.01 L Cancelled (0.01-0.04) ng/mL C-Reactive Protein 1.6 H (0.5-1.0) mg/dL NT-Pro-B Natriuret Pep < 20 pg/mL Total Protein (6.0-8.3) g/dL Albumin (3.3-5.0) g/dL 12/07/23 Range/Units 19:55 WBC (4.50-11.00) K/uL RBC (4.00-5.20) m/uL Hgb (12.0-16.0) gm/dL Hct (33.0-51.0) % MCV (80-100) fL MCH (26-34) pg MCHC (32-36) gm/dL RDW Coeff of Ivette (11.5-15.5) % Plt Count (140-440) K/uL Neut % (Auto) (42.0-72.0) % Lymph % (Auto) (20-44) % [place] % (Auto) (0.0-11.0) % Eos % (Auto) (0.0-7.0) % Baso % (Auto) (0.0-3.0) % Neut # (Auto) (1.7-7.0) K/uL Lymph # (Auto) (0.90-2.90) K/uL [place] # (Auto) (0.00-0.90) K/UL Eos # (Auto) (0.00-0.50) K/uL Baso # (Auto) (0.00-0.30) K/uL Abs Immat Gran (auto) (0.00-0.30) K/uL Imm/Tot Granulo (auto) % Sodium (135-149) mmol/L Potassium (3.6-5.1) mmol/L Chloride (96-114) mmol/L Carbon Dioxide (20-32) mmol/L Anion Gap (7-15) mEq/L BUN (5-24) mg/dL Creatinine (0.5-1.5) mg/dL Estimated Creat Clear Estimated GFR ml/min Glucose (60-115) mg/dL Calcium (8.4-10.6) mg/dL Magnesium (1.5-2.6) mg/dL Total Bilirubin (0.1-1.5) mg/dL AST (12-35) U/L ALT (4-35) U/L Alkaline Phosphatase (40-150) U/L Troponin I (0.01-0.04) ng/mL C-Reactive Protein (0.5-1.0) mg/dL NT-Pro-B Natriuret Pep Cancelled pg/mL Total Protein 6.8 (6.0-8.3) g/dL Albumin 4.1 (3.3-5.0) g/dL Imaging Data Chest x-ray: Attestation: I have reviewed the pertinent imaging results. My impression: I see no definitive infiltrate, no evidence of any congestive heart failure, no acute pathology on my preliminary review. Radiologist's impression: Patient: MAKAYLA MURGUIA Facility:?[facility] Patient ID:?[id number] Site Patient ID:?[id number]. Site :?1985 Study:?XRay Chest 1 VIEW PORTABLE-12/07/2023 8:34:13 PM Ordering Physician:ALESSANDRA Final Report: INDICATION: Chest pressure TECHNIQUE: Chest radiograph 1 view COMPARISON: 06/04/2023 FINDINGS: The sensitivity and specificity of the exam are moderately limited by the patient`s body habitus. Mediastinum: The mediastinum is normal in appearance. The heart silhouette is normal in size and morphology. Lung: Both lungs are unremarkable in appearance. No sign of pleural effusion seen. No pneumothorax is identified. Bone and Soft tissue: Unremarkable for age. IMPRESSION: 1. No acute cardiopulmonary disease is seen. Dictated by: Edilberto Canas MD @ 12/07/2023 21:09:19 (Electronic Signature) ECG Data Attestation: I personally reviewed and interpreted this ECG as follows: (Normal sinus rhythm, 77 beats per minute. No PVC, no PAC, no arrhythmia, no ischemic change. QT corrected 448 milliseconds.) ECG interpretation date: 12/07/23 ECG interpretation time: 19:40 Prior ECG tracings: not available for review Discharge Plan Discharge Clinical Impression: Palpitations, Chest pressure Patient Disposition: Home, Self-Care Condition: Stable Instructions: Chest Pain (ED), Heart Palpitations (ED), Noncardiac Chest Pain (ED) Additional Instructions: We will contact you with the results of the triple viral swab. If your positive for influenza, we will call in Tamiflu 75 mg twice a day for 5 days. If positive for COVID, will send in prescription for standard dosing of Paxlovid. If you have ongoing symptoms of heart palpitations or irregular heartbeat, do recommend talking to her primary care provider or commercial baker helper about having further rhythm monitoring with a ZIO patch. Do recommend that you follow-up in clinic for further review of your palpitations. Watch for symptoms illness developing, seek re-evaluation if felt needed. Activity Level: Activity as Tolerated Prescriptions: No Action albuterol sulfate 2.5 mg/0.5 mL solution for nebulization 5 mg inhalation QID PRN (Reason: cough) Qty: 30 1RF prednisone 20 mg tablet 20 mg PO QDAY Qty: 18 0RF Rx Instructions: 3 po as single dose days 1-3, 2 po as single dose days 4-6, 1 po days 7-9, the discontinue. benzonatate 200 mg capsule 200 mg PO BID-TID PRN (Reason: cough) Qty: 30 0RF trazodone 50 mg tablet 50 mg PO QPM duloxetine 60 mg capsule,delayed release(DR/EC) 60 mg PO DAILY propranolol 10 mg tablet 10 mg PO DAILY Mounjaro 2.5 mg/0.5 mL pen injector 2.5 mg subcut Ozempic 0.25 mg or 0.5 mg (2 mg/3 mL) pen injector 0.5 mg subcut Follow Up/Referrals: Corinne Kay PA-C [Primary Care Provider] - Stand Alone Forms: [employer] Info Instructions
--- NOTE | 2023-12-07 19:37 | XR_ITS ---
Patient: MAKAYLA MURGUIA Facility:?[facility] Patient ID:?[id number] Site Patient ID:?[id number]. Site :?1985 Study:?XRay-Chest 1 VIEW PORTABLE-12/07/2023 8:34:13 PM Ordering Physician:ALESSANDRA Final Report: INDICATION: Chest pressure TECHNIQUE: Chest radiograph 1 view COMPARISON: 06/04/2023 FINDINGS: The sensitivity and specificity of the exam are moderately limited by the patient`s body habitus. Mediastinum: The mediastinum is normal in appearance. The heart silhouette is normal in size and morphology. Lung: Both lungs are unremarkable in appearance. No sign of pleural effusion seen. No pneumothorax is identified. Bone and Soft tissue: Unremarkable for age. IMPRESSION: 1. No acute cardiopulmonary disease is seen. Dictated by: Edilberto Canas MD @ 12/07/2023 21:09:19 Signed by:?Edilberto Canas MD @12/07/2023 9:09:19 PM (Electronic Signature)
--- OUTSIDE RECORDS SUMMARY | 2023-12-07 19:44 | XMS_ITS | Continuity of Care Document ---
Author Name Unknown Organization [facility] Address [address] [place] [address] Phone Care Team Providers Care Business Analytics Director Name Role Phone Abdias Tamayo MD Unavailable Unavailable Allergies, Adverse Reactions, Alerts Substance Reaction Status Criticality bupropion Tachycardia Active No Information latex Active No Information Medications Medication Instructions Dosage Effective Dates (start - stop) Status Comments prednisone 20 mg tablet take 1 tablet PO BID for 7 days, then take 7 tablet daily for five days - Active DULOXETINE HCL (unknown strength) Not Available - Active IBUPROFEN (unknown strength) Not Available - Active Procedures Procedure Date Postop Followup Visit Postop Followup Visit Lami/Discectomy, Lumbar HNP Advance Directives Directive Yes / No Effective Date File Name No Information Encounters Encounter Description Practice Location Reason(s) For Visit Diagnoses Date Provider Providers Copied on Encounter [facility], [address], [place], [place], [id number], [place] tel:[phone] [facility] No Information Roni Calero. [facility], [address] [place] [address], [facility] [address], [place], [address], [place]. tel:[phone] [facility], [address], [place], [place], [id number], [place] tel:[phone] [facility] Radiculopathy , lumbar regionOther spondylosis, lumbar region 4 Roni Calero. [facility], [address], [address], [place], [address], [place]. [phone] Referring Provider: Abdias Tamayo, [facility] [address], [address], [place], [address]. tel:[phone] [facility], [address], [place], [place], [id number], [place] tel:[phone] [facility] Encounter for other specified surgical aftercare 4 Roni Calero. [facility] [place], [address], [address], [place], [address], [place]. [phone] Referring Provider: Abdias Tamayo, [facility] [address], [address], [place], [address]. tel:[phone] [facility], [address], [place], [place], [id number], [place] tel:[phone] [facility] No Information 3 Roni Calero. [facility], [address], [address], [place], [address], [place]. [phone] Referring Provider: Abdias Tamayo, [facility] [address], [address], [place], [address]. tel:[phone] Family History Family Member Type Diagnosis Age At Onset Mother Problem (finding) Hypertension Mother Problem (finding) Depression Mother Problem (finding) Osteoarthritis Brother Problem (finding) Depression Mother Problem (finding) Diabetes mellitus Father Problem (finding) Depression Payers Payer name Insurance type Covered constitution party ID Navdeepkallie gretchensena([place]) [place] [id number] [place] [id number] Social History Type Description Quantity Date Captured Comments Alcohol Use Details Unknown Caffeine Use Details Unknown Tobacco Use Status Smoking Status No Information Sex Female Chief Complaint And Reason For Visit No Information Reason For Referral Reason For Referral No Information History Of Present Illness Encounter Date Complaint History Of Prese nt Illness No Information Functional Status Date Functional Assessmen t No Information Instructions Date Instruction Additional Infor mation No Information Assessments Type Assessment Date No Information Patient Care Teams Name Effective Dates (start - stop) Status Members No Information
--- OUTSIDE RECORDS SUMMARY | 2023-12-07 19:44 | XMS_ITS | Continuity of Care Document ---
Author Name Unknown Organization [facility] Address [address] [address] [place] [address] Phone Care Team Providers Care Picking Belt Operator Name Role Phone Nicky NAIK, Villalobos Unavailable [...] Encounter [facility], [address] [address], [place], [id number], [place] tel:[phone] [facility] No Information 0 Nicky Villalobos. [address], [place], [place], [id number], [place]. tel:[phone] New Level 4 or 45-59 min [facility], [address] [address], [place], [place], [id number], [place] tel:[phone] [facility] GI Symptoms or Concerns (chief complaint) HepatomegalySplen omegalyNAFLD (nonalcoholic fatty liver disease)Status post cholecystectomyIr ritable bowel syndrome with diarrheaChronic GERDSmokingHistor y of obstructive sleep apnea 0 No Information Referring Provider: Referral Self, USE FOR SELF REFERRALS. [facility], [address] [address], [facility] [place], [id number], [place] tel:[phone] [facility] No Information 0 No Information [facility], [address] [address], [place], [place], [id number], [place] tel:[phone] [facility] No Information 0 Tiera Daigle. [address], [place], [place], [address], [place]. tel:[phone] Family History Family Member Type Diagnosis Age [...] and acellular pertussis vaccine, adsorbed administered Note: [employer] b i-directional interface ; Source: Other Registry [...] Registry Payers Payer name Insurance type Covered democrat ID Authoriza tion(s) No Information Social History [...]
--- OUTSIDE RECORDS SUMMARY | 2023-12-07 19:44 | XMS_ITS | Clinical Summary ---
Author Name Unknown Organization [facility] Address [place], [place] [address] Care Team Providers Care Rubbish Collector Name Role Phone Corinne Kay Primary Care Provider Allergies Active Allergy Reactions Criticality Noted Date Comments Cefaclor Anaphylaxis High 02/17/2011 Latex Rash 08/05/2023 Sertraline Nausea And Vomiting Low 11/28/2018 Bupropion Hcl Tachycardia High 04/21/2020 Medications Medication Sig Dispensed Refills Start Date End Date Status albuterol (PROVENTIL) 0.083 % neb solutionIndications :SOB (shortness of breath),Moderate persistent asthma with exacerbation,Bronch itis Inhale 3 mL (2.5 mg) via a nebulizer every 6 hours if needed for Cough 1st choice. 180 mL 12/15/2021 Active nebulizer accessories kitIndications:Mode rate persistent asthma with exacerbation,Mild intermittent reactive airway disease without complication For home use. Length of need: prn 1 Kit 01/15/2022 Active propranoloL (INDERAL) 10 mg tabletIndications:H TN (hypertension) Take 1 Tablet (10 mg) by mouth three times daily. 90 Tablet 3 09/07/2022 Active Additional Information Patient taking differently:10 mg OralTID PRN, anxiety, Reported on 08/04/2023 betamethasone dipropionate 0.05% (DIPROSONE 0.05% CREAM) 0.05 % creamIndications:Dy shidrotic eczema Apply topically to affected area(s) once daily. 45 g 1 06/15/2023 Active albuterol HFA (PRO-AIR; VENTOLIN; PROVENTIL) 90 mcg/actuation inhalerIndications: Mild intermittent reactive airway disease without complication Inhale 2 Puffs by mouth 4 times daily if needed for Shortness of Breath 1st choice. 1 Each 06/15/2023 Active LORazepam (ATIVAN) 1 mg tabletIndications:A nxiety TAKE 1 TABLET(1 MG) BY MOUTH EVERY DAY NEEDED FOR ANXIETY 10 Tablet 08/02/2023 Active DULoxetine (CYMBALTA) 20 mg Delayed-release capsule Take 40 mg by mouth at bedtime. Increase to 60mg daily on 08/07/23 Active BD Jennifer 2nd Gen Pen Needle 32 gauge x 5/32 INJECT ONCE A DAY 11/21/2022 Active traZODone (DESYREL) 50 mg tabletIndications:D epression, major, single episode, moderate (HC),Anxiety Take 1 Tablet (50 mg) by mouth at bedtime if needed for Sleep or Anxiety. 90 Tablet 3 10/17/2023 Active tirzepatide (Mounjaro) 2.5 mg/0.5 mL penIndications:Cont rolled type 2 diabetes mellitus without complication, without long-term current use of insulin (HC) Inject 0.5 mL (2.5 mg) subcutaneous once weekly. 2 mL 1 10/17/2023 Active varenicline (CHANTIX DOSEPAK) 0.5 mg (11)- 1 mg (42) tabletIndications:T obacco dependence Days 1-3 take 0.5mg once daily; Days 4-7 take 0.5mg twice daily; then increase to 1mg twice daily. Take with meals. 1 Packet 10/17/2023 Active varenicline (CHANTIX) 1 mg tabletIndications:T obacco dependence Take 1 mg by mouth two times daily with meals. 180 Tablet 10/17/2023 Active Active Problems Problem Noted Date Diagnosed Date Radicular pain 08/04/2023 Right leg weakness 08/04/2023 Urinary incontinence 08/04/2023 GERD (gastroesophageal reflux disease) Depression 08/04/2023 Anxiety 08/04/2023 YAMINI (obstructive sleep apnea) 08/04/2023 Asthma 08/04/2023 Controlled type 2 diabetes m ellitus without complication, without long-term current use of insulin 12/22/2021 Hx of total hysterectomy 12/22/2021 Lumbar herniated disc 05/10/2011 Work-related condition 05/04/2011 Pain in back 04/29/2011 Sciatica 04/29/2011 Encounters Date Type Department Care Team Description 10/17/2023 3:20 PM PRODUCTION QUALITY ANALYST Office Visit [facility] [address] [place] [address] Corinne Kay PA Follow Up (Had a CT in 2016 that showed a lung nodule, was to follow up but never did.) 10/17/2023 Orders Only [facility] Scanner 1 scan: (1-Ord) INCOMING RECORDS-CT, [facility], 10/17/2023 10/17/2023 Travel from Last 3 Months Immunizations Name Administration Dates Next Due COVID-19 vaccine (Moderna 100mcg/0.5mL) KACIE MCNEIL 10/09/2020,09/11/2020 Hepatitis B (Adult) 04/02/1998,12/04/1997,1996 Influenza, IIV3 (Age 6-35 mos) 09/10/2013 Influenza, IIV4 07/19/2019, 8,06/23/2016,2014,05/08/2014 MMR 12/04/1997 Td, Preservative Free (age > = 7 Years) 12/04/1997 Tdap 04/14/2021, 5,02/27/2014,2006 Family History Medical History Relation Name Comments [...] Day Cigarettes 1 6 Smokeless Tobacco: Never Tobacco Cessation:Ready to Q uit: No; Counseling Given: Yes Comments:0.5-1 pack daily Alcohol Use Standard Drinks/Week Comments No 0 (1 standard drink = 0.6 oz pur e alcohol) PHQ-2 Answer Date Recorded PHQ-2 TOTAL SCORE 5 06/25/2022 Social Connections Answer Date Recorded Frequency of Communication with Friends and Fami ly 0 08/29/2023 Financial Resource Strain Answer Date R ecorded Difficulty of Paying Living Expenses 3 08/29/2023 Difficulty of Paying Living Expenses Not on file 08/29/2023 Food Insecurity Answer Date Recorded Worried About Running Out of Food in the Last Ye ar 1 08/29/2023 Transportation Needs Answer Date Record ed Lack of Transportation (Medical) 1 08/29/2023 Housing Stability Answer Date Recorded Unable to Pay for Housing in the Last Year 1 08/29/2023 Sex and Gender Information Value Date Recorded Sex Assigned at Not on file Gender Identity Not on file Sexual Orientation Not on file Obstetrics History Last Filed Vital Signs Vital Sign Reading Time Taken Comments Blood Pressure 122/83 10/17/2023 3:40 PM PRODUCTION QUALITY ANALYST Pulse 79 10/17/2023 3:40 PM PRODUCTION QUALITY ANALYST Temperature 36.7 ??C (98.1 ??F) 08/06/2023 7:26 AM CS T Respiratory Rate 18 08/06/2023 7:26 AM PRODUCTION QUALITY ANALYST Oxygen Saturation 98% 08/08/2023 3:21 PM PRODUCTION QUALITY ANALYST Inhaled Oxygen Concentration - - Weight 136.5 kg (301 lb) 10/17/2023 3:40 PM PRODUCTION QUALITY ANALYST Height 167.6 cm (5' 6) 08/04/2023 12:43 PM PRODUCTION QUALITY ANALYST Body Mass Index 48.58 08/04/2023 12:43 PM PRODUCTION QUALITY ANALYST Plan of Treatment Health Maintenance Due Date Last Done Comments Pneumococcal series for age 6-64 (1 of 2 - PCV) 02/26/1992 COVID-19 vaccine series ( season) 2023 10/09/2020, 09/11/2020 Depression screening for age 12+ 06/25/2023 06/25/2022, 04/21/2020, 04/21/2020 Influenza for age 9-49 04/29/2024 9, 07/14/2018, 06/23/2016, Additional history exists BMI (ht and wt on same day) for age 18+ 06/15/2024 06/15/2023, 08/27/2022, 12/22/2021, Additional history exists Tetanus booster 04/14/2031 04/14/2021, 06/29, 02/27/2014, Additional history exists Hepatitis B series for Diabetes Completed 04/02/1998, 12/04/1997, 07/10/1997 Tdap Completed 04/14/2021, 06/29, 02/27/2014, Additional history exists HIV for age 15-65 Completed 11/30/2021, 04/14/2021 Hepatitis C screening for ag e 18-79 Completed 11/30/2021, 04/14/2021 Procedures Procedure Name Priority Date/Time Associated Diagnosis Comments SCAN CORRESP-IMAGING 10/17/2023 12:00 AM PRODUCTION QUALITY ANALYST ANTI HIV 1/2 Routine 11/30/2021 8:09 AM CDT Employee exposure to blood ANTI HCV Routine 11/30/2021 8:09 AM CDT Employee exposure to blood from Last 3 Months or Most Recently Relevant to Health Maintenance Results * SCAN CORRESP-IMAGING (10/17/2023 12:00 AM PRODUCTION QUALITY ANALYST) Anatomical Region Laterality Modality Other Scanner OTHER * ANTI HCV (11/30/2021 8:09 AM CDT) HEPATITIS C ANTIBODY Non-React ad Non-React ad 11/30/2021 5:[address] [facility] Comment:Antibodies to HCV no t detected; does not exclude the possibility of exposure to HCV. Blood BLOOD SPECIMEN / Unknown Venipuncture / Unknown 11/30/2021 8:09 AM CDT 11/30/2021 8:10 AM CDT Kimberly CORTES SEND OUTS [facility] [address] [place] [address], * ANTI HIV 1/2 (11/30/2021 8:09 AM CDT) HIV-1/HIV-2 ANTIBODY Non-Reacti ve Non-Reacti ve 11/30/2021 5:04 PM CDT [facility] Comment:HIV-1 p24 and HIV-1/ HIV-2 Ab not detected. Blood BLOOD SPECIMEN / Unknown Venipuncture / Unknown 11/30/2021 8:09 AM CDT 11/30/2021 8:10 AM CDT Kimberly CORTES SEND OUTS [facility] [address] [place] [address], from Last 3 Months or Most Recently Relevant to Health Maintenance Advance Directives * Full Code (Latest Code Status on File) Date Activated Date Inactivated Comments 08/05/2023 12:16 AM 08/06/2023 3:19 PM Question Answer Comments Code Status Discussion: Reviewed Preferences Care Teams Rubbish Collector Relationship Specialty Start Date End Date Corinne Kay PA [address] [place] [address] PCP - General Physician Senior Technical Editor 05/26/23
--- OUTSIDE RECORDS SUMMARY | 2023-12-07 19:44 | XMS_ITS | Clinical Summary ---
Author Name Unknown Organization [facility] Address [address] [place] [address] Care Team Providers Care Miller First Name Role Phone Unavailable Primary Care Provider Unavailabl e Source Comments You are receiving this document as you are listed as the primary care provider,follow-up provider, or the patient has been referred to you for consultation.This is in compliance with the Medicare andMedicaid EHR Incentive Program,which states Providers who transition their patient to another setting of careor provider of care or refers their patient to another provider of care shouldprovide summary care record for each transition of care or referral. [facility] Allergies Active Allergy Reactions Criticality Noted Date Comments Cefaclor Anaphylaxis High 02/17/2011 Medications Medication Sig Dispensed Refills Start Date End Date Status FLUoxetine (PROZAC) 20 MG tablet Take 60 mg by mouth daily. Active pantoprazole (PROTONIX) 20 MG tablet Take 20 mg by mouth daily. Active propranolol (INDERAL) 10 MG tablet Take 5 mg by mouth two times a day. Active diclofenac (VOLTAREN) 50 MG enteric coated tablet Take 1 Tablet by mouth two times a day. 30 Tablet 10/21/2020 Active DULoxetine (CYMBALTA) 60 MG capsule Take 1 Capsule (60 mg) by mouth daily. Active insulin glargine-yfgn (SEMGLEE) 100 unit/mL injection pen Inject 10 Units subcutaneously. 11/19/2022 Active LORazepam (ATIVAN) 1 MG tablet Take by mouth. 11/15/2022 Active semaglutide (OZEMPIC, 0.25/0.5 MG/DOSE,) 2 MG/1.5ML injection Inject 0.5 mg subcutaneously once a week. Active Active Problems Problem Noted Date Diagnosed Date Lumbar herniated disc 05/10/2011 Work-related condition [...] drink = 0.6 oz pur e alcohol) Sex and Gender Information Value Date Recorded Sex Assigned at Not on file Gender Identity Not on file Sexual Orientation Not on file Last Filed Vital Signs Vital Sign Reading Time Taken Comments Blood Pressure 136/70 07/09/2011 9:27 AM DISTRIBUTION TECHNICIAN Pulse 76 07/09/2011 9:27 AM DISTRIBUTION TECHNICIAN Temperature 36.6 ??C (97.8 ??F) 12/22/2022 11:33 AM C DT Respiratory Rate 16 06/22/2011 4:53 PM CDT Oxygen Saturation - - Inhaled Oxygen Concentration - - Weight 132.9 kg (293 lb) 12/22/2022 11:33 AM CDT Height 162.6 cm (5' 4) 12/22/2022 11:33 AM CDT Body Mass Index 50.29 12/22/2022 11:33 AM CDT Plan of Treatment Health Maintenance Due Date Last Done Comments Cervical Cancer Screening Due 1986 Hep C Screening (Preventive Services) 1986 Pneumococcal (1 - PCV) 02/26/1992 HIV Screening (Preventive Services) 2002 Adult Preventive Visit 02/26/2004 HepB (1) 2005 COVID-19 Vaccine (3 - season) 2023 10/09/2020, 09/11/2020 Influenza (#1) 2023 07/19/2019, 06/29, 06/23/2016, Additional history exists Diabetes Screening- (based on age and BMI) 11/19/2025 11/19/2022, 03/31/2022 DTaP/Tdap/Td (6 - Tdap) 04/14/2031 04/14/20, 07/08/2015, 02/27/2014, Additional history exists Zoster/Shingles (1 of 2) 02/26/2036 HPV Vaccine Aged Out No longer eligi ble based on patient's age to complete this topic HepA Aged Out No longer eligi ble based on patient's age to complete this topic Hib Aged Out No longer eligi ble based on patient's age to complete this topic IPV (Polio) Aged Out No longer eligi ble based on patient's age to complete this topic MCV4 Aged Out No longer eligi ble based on patient's age to complete this topic Procedures Procedure Name Priority Date/Time Associated Diagnosis Comments HGB A1C (EXTERNAL RESULT) Routine 11/19/2022 10:19 AM CDT from Last 3 Months or Most Recently Relevant [place] [id number]
--- OUTSIDE RECORDS SUMMARY | 2023-12-07 19:44 | XMS_ITS | Referral Summary ---
Author Name Unknown Organization [facility] Address [address] [place] [address] Care Team Providers Care Tacking Stitch Remover Name Role Phone Baljindermargarita Ute Primary Care Provider Unavailab le Allergies Active Allergy Reactions Criticality Noted Date Comments Cefaclor Monohydrate Hives,Swelling,Diff iculty breathing 12/01/2010 Throat swells Sertraline Nausea and Vomiting 11/28/2018 Bupropion 11/28/2018 Medications Medication Sig Dispensed Refills Start Date End Date Status pantoprazole (PROTONIX) 40 MG EC tablet Take 40 mg by mouth daily Active escitalopram (LEXAPRO) 20 MG tablet 11/09/2018 Active Cholecalciferol (VITAMIN D-3) 5000 units TABS Active multivitamin w/minerals (MULTI-VITAMIN) tablet Take 1 tablet by mouth daily Active metFORMIN (GLUCOPHAGE-XR) 500 MG 24 hr tablet Take 500 mg by mouth daily (with dinner) Active Resolved Problems Problem Noted Date Diagnosed Date Resolved Date Sciatica 05/17/2011 07/09/2011 HNP (herniated nucleus pulposus) 05/17/2011 07/09/2011 Social History Tobacco Use Types Packs/Day Years Used Date Smoking Tobacco: Every Day Cigarettes 0.5 15 Smokeless Tobacco: Never Alcohol Use Standard Drinks/Week Comments No 0 (1 standard drink = 0.6 oz pur e alcohol) AUDIT-C Answer Date Recorded Frequency of Alcohol Consumption Never 10/25/2018 Average Number of Drinks Not on file 019 Frequency of Binge Drinking Not on file 09/30 Adolescent Education Answer Date Record ed Getting School Help Needed Not on file 06/15 Sex and Gender Information Value Date Recorded Sex Assigned at Not on file Gender Identity Not on file Sexual Orientation Not on file Last Filed Vital Signs Vital Sign Reading Time Taken Comments Blood Pressure 125/76 11/28/2018 10:00 AM CDT Pulse 85 11/28/2018 10:00 AM CDT Temperature 36.7 ??C (98 ??F) 10/25/2018 2:29 PM PSYCHOTHERAPIST COUNSELOR Respiratory Rate 17 10/25/2018 4:07 PM PSYCHOTHERAPIST COUNSELOR Oxygen Saturation 97% 11/28/2018 10:00 AM CDT Inhaled Oxygen Concentration - - Weight 136 kg (299 lb 12.8 oz) 11/28/2018 10:00 AM CDT Height 171.5 cm (5' 7.5) 11/28/2018 10:00 AM CD T Body Mass Index 46.26 11/28/2018 10:00 AM CDT Plan of Treatment Not on file Procedures Procedure Name Priority Date/Time Associated Diagnosis Comments BASIC METABOLIC PANEL STAT 10/25/2018 2:28 PM PSYCHOTHERAPIST COUNSELOR HIV 1 AND 2 ANTIBODY (QUEST) Routine 12/01/2010 5:35 PM CDT HEPATITIS C ANTIBODY Routine 12/01/2010 5:35 PM CDT from Last 3 Months or Most Recently Relevant to Health Maintenance Results * (ABNORMAL) Basic metabolic panel (10/25/2018 2:28 PM PSYCHOTHERAPIST COUNSELOR) Sodium 138 133 - 144 mmol/L 10/25/2018 2:[address] [facility] Potassium 3.9 3.4 - 5.3 mmol/L 10/25/2018 2:[address] [facility] Chloride 106 94 - 109 mmol/L 10/25/2018 2:[address] [facility] Carbon Dioxide 27 20 - 32 mmol/L 10/25/2018 2:[address] [facility] Anion Gap 5 3 - 14 mmol/L 10/25/2018 2:[address] [facility] Glucose 129(H) 70 - 99 mg/dL 10/25/2018 2:[address] [facility] Urea Nitrogen 15 7 - 30 mg/dL 10/25/2018 2:[address] [facility] Creatinine 0.76 0.52 - 1.04 mg/dL 10/25/2018 2:[address] [facility] GFR Estimate >90 >60 mL/min/{1. 73_m2} 10/25/2018 2:[address] [facility] Comment: Non GFR Calc Starting 08/15/2018, serum creatinine based estimated GFR (eGFR) will be calculated using the Chronic Kidney Disease Epidemiology Collaboration (CKD-EPI) equation. GFR Estimate If Black >90 >60 mL/min/{1. 73_m2} 10/25/2018 2:[address] [facility] Comment: GFR Calc Starting 08/15/2018, serum creatinine based estimated GFR (eGFR) will be calculated using the Chronic Kidney Disease Epidemiology Collaboration (CKD-EPI) equation. Calcium 8.7 8.5 - 10.1 mg/dL 10/25/2018 2:[address] [facility] Blood specimen (specimen) 10/25/2018 2:28 PM PSYCHOTHERAPIST COUNSELOR 10/25/2018 2:36 PM PSYCHOTHERAPIST COUNSELOR Acacia Sanabria APRN SOLUTION ARCHITECT LAB - BLOOD OR DERABLES [facility] [address] [phone] * HIV 1 and 2 Antibody (12/01/2010 5:35 PM CDT) HIV 1&[address] [facility] 12/01/2010 5:35 PM CDT 12/01/2010 6:10 PM CDT Provider Unknown LAB - BLOOD ORDERABL ES [facility] * Hepatitis C antibody (12/01/2010 5:35 PM CDT) Hepatitis C Antibody Negative [facility] 12/01/2010 5:35 PM CDT 12/01/2010 6:10 PM CDT Provider Unknown LAB - BLOOD ORDERABL ES [facility] from Last 3 Months or Most Recently Relevant to Health Maintenance Care Teams Tacking Stitch Remover Relationship Specialty Start Date End Date Thelma Cummins PCP - General Family Practice 11/28/18
--- OUTSIDE RECORDS SUMMARY | 2023-12-07 19:44 | XMS_ITS | Clinical Summary ---
Author Name Unknown Organization [facility] Address [address] [place] [address] Care Team Providers Care Environmental Professional Name Role Phone Baljindermargarita Ute Primary Care [...] 07/09/2011 HNP (herniated nucleus pulposus) 05/17/2011 07/09/2011 Family History Medical History Relation Comments Depression [...] 36.7 ??C (98 ??F) 10/25/2018 2:29 PM UNDERWRITING SPECIALIST Respiratory Rate 17 10/25/2018 4:07 PM UNDERWRITING SPECIALIST Oxygen Saturation 97% 11/28/2018 10:00 AM CDT Inhaled Oxygen Concentration - - Weight 136 kg (299 lb 12.8 oz) 11/28/2018 10:00 AM CDT Height 171.5 cm (5' 7.5) 11/28/2018 10:00 AM CD T Body Mass Index 46.26 11/28/2018 10:00 AM CDT Plan of Treatment Not on file Procedures Procedure Name Priority Date/Time Associated Diagnosis Comments BASIC METABOLIC PANEL STAT 10/25/2018 2:28 PM UNDERWRITING SPECIALIST HIV 1 AND 2 ANTIBODY (QUEST) Routine 12/01/2010 5:35 PM CDT HEPATITIS C ANTIBODY Routine 12/01/2010 5:35 PM CDT from Last 3 Months or Most Recently Relevant to Health Maintenance Results * (ABNORMAL) Basic metabolic panel (10/25/2018 2:28 PM UNDERWRITING SPECIALIST) Sodium 138 133 - 144 mmol/L 10/25/2018 2:49 PM [facility] Potassium 3.9 3.4 - 5.3 mmol/L 10/25/2018 2:49 PM [facility] Chloride 106 94 - 109 mmol/L 10/25/2018 2:49 PM [facility] Carbon Dioxide 27 20 - 32 mmol/L 10/25/2018 2:54 PM [facility] Anion Gap 5 3 - 14 mmol/L 10/25/2018 2:54 PM [facility] Glucose 129(H) 70 - 99 mg/dL 10/25/2018 2:54 PM [facility] Urea Nitrogen 15 7 - 30 mg/dL 10/25/2018 2:54 PM [facility] Creatinine 0.76 0.52 - 1.04 mg/dL 10/25/2018 2:54 PM [facility] GFR Estimate >90 >60 mL/min/{1. 73_m2} 10/25/2018 2:54 PM [facility] Comment: Non GFR Calc Starting 08/15/2018, serum creatinine based estimated GFR (eGFR) will be calculated using the Chronic Kidney Disease Epidemiology Collaboration (CKD-EPI) equation. GFR Estimate If Black >90 >60 mL/min/{1. 73_m2} 10/25/2018 2:54 PM [facility] Comment: GFR Calc Starting 08/15/2018, serum creatinine based estimated GFR (eGFR) will be calculated using the Chronic Kidney Disease Epidemiology Collaboration (CKD-EPI) equation. Calcium 8.7 8.5 - 10.1 mg/dL 10/25/2018 2:54 PM [facility] Blood specimen (specimen) 10/25/2018 2:28 PM UNDERWRITING SPECIALIST 10/25/2018 2:36 PM UNDERWRITING SPECIALIST Acacia Sanabria APRN LEGAL RECORDS MANAGER LAB - BLOOD OR DERABLES [facility] [address] [place] [id number] [phone] * HIV 1 and 2 Antibody (12/01/2010 5:35 PM CDT) HIV 1&2 Antibody Negative [facility] 12/01/2010 5:35 PM CDT 12/01/2010 6:10 PM CDT Provider Unknown LAB - BLOOD ORDERABL ES [facility] * Hepatitis C antibody (12/01/2010 5:35 PM CDT) Hepatitis C Antibody Negative [facility] 12/01/2010 5:35 PM CDT 12/01/2010 6:10 PM CDT Provider Unknown LAB - BLOOD ORDERABL ES [facility] from Last 3 Months or Most Recently Relevant to Health Maintenance Care Teams Environmental Professional Relationship Specialty Start Date End Date Thelma Cummins PCP - General Family Practice 11/28/18
[2023-12-07 20:22] LABS: Basophils Percent Auto 0.2 % (0.0-3.0); Eosinophils Percent Auto 1.8 % (0.0-7.0); Hematocrit 43.9 % (33.0-51.0); Hemoglobin* 14.8 gm/dL (12.0-16.0); Immature Granulocytes Pct Auto 0.1 %; Lymphocytes Percent Auto 30.3 % (20-44); Mean Corpuscular HGB Conc 34 gm/dL (32-36); Mean Corpuscular Hemoglobin 29 pg (26-34); Mean Corpuscular Volume 86 fL (80-100); Monocytes Percent Auto 6.5 % (0.0-11.0); Neutrophils Percent Auto 61.1 % (42.0-72.0); Platelet Count* 281 K/uL (140-440); RDW Coefficient of Variation % 11.8 % (11.5-15.5); White Blood Count* 12.42 K/uL (4.50-11.00)
[2023-12-07 20:23] LABS: Slide Review Reflex No
[2023-12-07 20:31] LABS: Albumin* 4.1 g/dL (3.3-5.0); Chloride* 105 mmol/L (96-114)
[2023-12-07 20:32] LABS: Potassium* 3.8 mmol/L (3.6-5.1); Sodium* 137 mmol/L (135-149)
[2023-12-07 20:34] LABS: Creatinine* 0.7 mg/dL (0.5-1.5); Est. Creatinine Clearance* 99.01; Estimated Glomerular Filt Rate 114 ml/min
[2023-12-07 20:35] LABS: Alanine Aminotransferase* 30 U/L (4-35); Alkaline Phosphatase* 76 U/L (40-150); Anion Gap 9 mEq/L (7-15); Aspartate Amino Transferase* 24 U/L (12-35); Bilirubin Total* 0.5 mg/dL (0.1-1.5); Blood Urea Nitrogen* 15 mg/dL (5-24); Carbon Dioxide* 23 mmol/L (20-32); Glucose* 119 mg/dL (60-115); Magnesium* 2.1 mg/dL (1.5-2.6); Total Protein* 6.8 g/dL (6.0-8.3)
[2023-12-07 20:38] LABS: C Reactive Protein* 1.6 mg/dL (0.5-1.0)
[2023-12-07 20:47] LABS: NT Pro B Type NatriureticPept* < 20 pg/mL; Troponin I* < 0.01 ng/mL (0.01-0.04)
[2023-12-07 22:39] LABS: PCR FLU A Negative PCR FLU A (Negative); PCR FLU B Negative PCR FLU B (Negative); PCR RSV Negative PCR RSV (Negative); SARS PCR* Negative SARS-CoV-2 (Negative)
== END 2023-12-07 22:06 | disposition home or self-care (01) ==
PROVIDERS: Emergency Provider Family Medicine; PCP Physician Assistant Medical
DX: R00.2 Palpitations (principal); R07.89 Other chest pain
CPT/HCPCS: 36415; 71045; 80053; 83735; 83880; 84484; 85025; 86140; 87631; 93005; 94761; 99284; 99285

== ENCOUNTER 2024-01-06 11:00 | Outpatient (CLI) | payer BC, SELFPAY ==
--- OUTSIDE RECORDS SUMMARY | 2024-01-06 11:04 | XMS_ITS | Clinical Summary ---
Author Name Unknown Organization [facility] Address [address] [place] [address] Care Team Providers Care Professional Healthcare Representative Name Role Phone Baljindermargarita Ute Primary Care [...] 36.7 ??C (98 ??F) 10/25/2018 2:29 PM RESEARCH TECHNOLOGIST Respiratory Rate 17 10/25/2018 4:07 PM RESEARCH TECHNOLOGIST Oxygen Saturation 97% 11/28/2018 10:00 AM CDT Inhaled Oxygen Concentration - - Weight 136 kg (299 lb 12.8 oz) 11/28/2018 10:00 AM CDT Height 171.5 cm (5' 7.5) 11/28/2018 10:00 AM CD T Body Mass Index 46.26 11/28/2018 10:00 AM CDT Plan of Treatment Not on file Care Teams Professional Healthcare Representative Relationship Specialty Start Date End Date Thelma Cummins PCP - General Family Practice 11/28/18
--- OUTSIDE RECORDS SUMMARY | 2024-01-06 11:04 | XMS_ITS | Clinical Summary ---
Author Name Unknown Organization [facility] Address [place], [place] [address] Care Team Providers Care Energy Risk Management Analyst Name Role Phone Corinne Kay Primary Care Provider Allergies Active Allergy Reactions Criticality Noted Date Comments Cefaclor Anaphylaxis High 02/17/2011 Latex Rash 08/05/2023 Sertraline Nausea And Vomiting Low 11/28/2018 Bupropion Hcl Tachycardia High 04/21/2020 Medications Medication Sig Dispensed Refills Start Date End Date Status albuterol (PROVENTIL) 0.083 % neb solutionIndicatio ns:SOB (shortness of breath),Moderate persistent asthma with exacerbation,Bron chitis Inhale 3 mL (2.5 mg) via a nebulizer every 6 hours if needed for Cough 1st choice. 180 mL 12/15/2021 Active nebulizer accessories kitIndications:Mo derate persistent asthma with exacerbation,Mild intermittent reactive airway disease without complication For home use. Length of need: prn 1 Kit 01/15/2022 Active betamethasone dipropionate 0.05% (DIPROSONE 0.05% CREAM) 0.05 % creamIndications: Dyshidrotic eczema Apply topically to affected area(s) once daily. 45 g 1 06/15/2023 Active albuterol HFA (PRO-AIR; VENTOLIN; PROVENTIL) 90 mcg/actuation inhalerIndication s:Mild intermittent reactive airway disease without complication Inhale 2 Puffs by mouth 4 times daily if needed for Shortness of Breath 1st choice. 1 Each 06/15/2023 Active LORazepam (ATIVAN) 1 mg tabletIndications :Anxiety TAKE 1 TABLET(1 MG) BY MOUTH EVERY DAY NEEDED FOR ANXIETY 10 Tablet 08/02/2023 Active traZODone (DESYREL) 50 mg tabletIndications :Depression, major, single episode, moderate (HC),Anxiety Take 1 Tablet (50 mg) by mouth at bedtime if needed for Sleep or Anxiety. 90 Tablet 3 10/17/2023 Active propranoloL (INDERAL) 10 mg tabletIndications :HTN (hypertension) Take 1 Tablet (10 mg) by mouth three times daily. Take as needed for anxiety. 90 Tablet 3 12/14/2023 Active tirzepatide (MOUNJARO) 5 mg/0.5 mL penIndications:Co ntrolled type 2 diabetes mellitus without complication, without long-term current use of insulin (HC) Inject 0.5 mL (5 mg) subcutaneous once weekly. 2 mL 1 12/14/2023 Active tirzepatide (Mounjaro) 2.5 mg/0.5 mL penIndications:Co ntrolled type 2 diabetes mellitus without complication, without long-term current use of insulin (HC) Inject 0.5 mL (2.5 mg) subcutaneous once weekly. 2 mL 1 01/02/2024 Active empagliflozin (JARDIANCE) 25 mg tabletIndications :Controlled type 2 diabetes mellitus without complication, without long-term current use of insulin (HC) Take 1 Tablet (25 mg) by mouth once daily. 90 Tablet 3 01/02/2024 Active azithromycin (Zithromax Z-Miguel) 250 mg tabletIndications :Mixed simple and mucopurulent chronic bronchitis (HC) Two tablets the first day, one daily days 2-5 6 Tablet 01/02/2024 4 Active citalopram (CELEXA) 20 mg tabletIndications :Anxiety,Depressi on, major, single episode, moderate (HC) Take 1 Tablet (20 mg) by mouth every morning. 90 Tablet 01/02/2024 Active propranoloL (INDERAL) 10 mg tabletIndications :HTN (hypertension) Take 1 Tablet (10 mg) by mouth three times daily. 90 Tablet 3 09/07/2022 4 Discontinue d(Reorder (E-cancel not sent)) DULoxetine (CYMBALTA) 20 mg Delayed-release capsule Take 40 mg by mouth at bedtime. Increase to 60mg daily on 08/07/23 4 Discontinue d(*Patient states no longer taking) BD Jennifer 2nd Gen Pen Needle 32 gauge x / INJECT ONCE A DAY 11/21/2022 4 Discontinue d(*Patient states no longer taking) tirzepatide (Mounjaro) 2.5 mg/0.5 mL penIndications:Co ntrolled type 2 diabetes mellitus without complication, without long-term current use of insulin (HC) Inject 0.5 mL (2.5 mg) subcutaneous once weekly. 2 mL 1 10/17/2023 4 Discontinue d(Reorder (E-cancel not sent)) varenicline (CHANTIX DOSEPAK) 0.5 mg (11)- 1 mg (42) tabletIndications :Tobacco dependence Days 1-3 take 0.5mg once daily; Days 4-7 take 0.5mg twice daily; then increase to 1mg twice daily. Take with meals. 1 Packet 10/17/2023 4 Discontinue d(*Patient states no longer taking) varenicline (CHANTIX) 1 mg tabletIndications :Tobacco dependence Take 1 mg by mouth two times daily with meals. 180 Tablet 10/17/2023 4 Discontinue d(*Patient states no longer taking) Active Problems Problem Noted Date Diagnosed Date Radicular pain 08/04/2023 Right leg weakness 08/04/2023 Urinary incontinence 08/04/2023 GERD (gastroesophageal reflux disease) 3 Depression 08/04/2023 Anxiety 08/04/2023 YAMINI (obstructive sleep apnea) 08/04/2023 Asthma 08/04/2023 Controlled type 2 diabetes m ellitus without complication, without long-term current use of insulin 12/22/2021 Hx of total hysterectomy 12/22/2021 Lumbar herniated disc 05/10/2011 Work-related condition 05/04/2011 Pain in back 04/29/2011 Sciatica 04/29/2011 Encounters Date Type Department Care Team Description 01/02/2024 9:50 AM CDT Office Visit [facility] [address] [place] [address] Corinne Kay PA Follow Up (Started getting sick 4/18 with s/t, head and chest congestion. Went to on 12/19 was given azithromycin / prednisone taper, chest XR neg. Still SOB and coughing); Urinary Problem (Dysuria, frequency, urgency) 01/02/2024 Travel 12/20/2023 Orders Only [facility] Scanner 1 scan: (1-Ord) [facility], CHEST 2V, 12/20/2023 12/07/2023 Orders Only [facility] Scanner 1 scan: (1-Ord) [facility], XR CHEST, 12/07/2023 10/17/2023 3:20 PM CORPORATE FITNESS PROGRAM COORDINATOR Office Visit [facility] [address] [place] [address] Corinne Kay PA Follow Up (Had a CT in 2015 that showed a lung nodule, was to follow up but never did.) 10/17/2023 Orders Only [facility] Scanner 1 scan: (1-Ord) INCOMING RECORDS-CT, [facility], 10/17/2023 10/17/2023 Travel from Last 3 Months Immunizations Name Administration Dates Next Due COVID-19 vaccine (Moderna 100mcg/0.5mL) PF, MDV 10/09/2020,09/11/2020 Hepatitis B (Adult) 04/02/1998,12/04/1997,1996 Influenza, IIV3 [...] Sign Reading Time Taken Comments Blood Pressure 111/72 01/02/2024 9:56 AM CDT Pulse 76 01/02/2024 9:56 AM CDT Temperature 36.9 ??C (98.5 ??F) 01/02/2024 9:56 AM CD T Respiratory Rate 18 08/06/2023 7:26 AM CORPORATE FITNESS PROGRAM COORDINATOR Oxygen Saturation 98% 01/02/2024 9:56 AM CDT Inhaled Oxygen Concentration - - Weight 133.3 kg (293 lb 14.4 oz) 01/02/2024 9:56 AM CDT Height 167.6 cm (5' 6) 08/04/2023 12:4 3 PM CORPORATE FITNESS PROGRAM COORDINATOR Body Mass Index 47.44 08/04/2023 12:43 PM CORPORATE FITNESS PROGRAM COORDINATOR Plan of Treatment Health Maintenance Due Date Last Done Comments Pneumococcal series for age 6-64 (1 of 2 - PCV) 02/26/1992 COVID-19 vaccine series (3 - 2022- season) 2023 10/09/2020, 09/11/2020 Depression screening for [...] Procedure Name Priority Date/Time Associated Diagnosis Comments UA W/ SEDIMENT EXAM REFLEXED PER CRITERIA Routine 01/02/2024 10:01 AM CDT Dysuria SCAN-RADIOLOGY REPORT 12/20/2023 12:00 AM CDT SCAN-RADIOLOGY REPORT 12/07/2023 12:00 AM CDT SCAN CORRESP-IMAGING 10/17/2023 12:00 AM CORPORATE FITNESS PROGRAM COORDINATOR ANTI HIV 1/2 Routine 11/30/2021 8:09 AM CDT Employee exposure to blood ANTI HCV Routine 11/30/2021 8:09 AM CDT Employee exposure to blood from Last 3 Months or Most Recently Relevant to Health Maintenance Results * (ABNORMAL) UA W/ SEDIMENT EXAM REFLEXED PER CRITERIA (01/02/2024 10:01 AM CDT) COLOR Yellow Yellow Color 01/02/2024 10:04 AM CDT [facility] CLARITY Clear Clear Clarity 01/02/2024 10:04 AM CDT [facility] SPECIFIC GRAVITY,URINE 1.020 1.010, 1.015, 1.020, 1.025 01/02/2024 10:04 AM CDT [facility] PH,URINE 7.0 6.0, 7.0, 8.0, 5.5, 6.5, 7.5, 8.5 01/02/2024 10:04 AM CDT [facility] UROBILINOGEN, QUALITATIVE Normal Normal EU/dl 01/02/2024 10:04 AM CDT [facility] PROTEIN, URINE Negative Negative mg/dL 01/02/2024 10:04 AM CDT [facility] GLUCOSE, URINE 100(A) Negative mg/dL 01/02/2024 10:04 AM CDT [facility] KETONES,URINE Negative Negative mg/dL 01/02/2024 10:04 AM CDT [facility] BILIRUBIN,URI NE Negative Negative 01/02/2024 10:04 AM CDT [facility] OCCULT BLOOD,URINE Negative Negative 01/02/2024 10:04 AM CDT [facility] NITRITE Negative Negative 01/02/2024 10:04 AM CDT [facility] LEUKOCYTE ESTERASE Negative Negative 01/02/2024 10:04 AM CDT [facility] Urine URINE SPECIMEN / Unknown Non-Blood / Unknown 01/02/2024 10:01 AM CDT 01/02/2024 10:01 AM CDT Corinne CORTES URINE [facility] [address] [place] [address], * SCAN-RADIOLOGY REPORT (12/20/2023 12:00 AM CDT) Only the most recent of2 resultswithin the time period is included. Anatomical Region Laterality Modality Other Scanner OTHER * SCAN CORRESP-IMAGING (10/17/2023 12:00 AM CORPORATE FITNESS PROGRAM COORDINATOR) Anatomical Region Laterality Modality Other Scanner OTHER * ANTI HCV (11/30/2021 8:09 AM CDT) HEPATITIS C ANTIBODY Non-React ad Non-React ad 11/30/2021 5:08 PM CDT [facility] Comment:Antibodies to HCV no t detected; does not exclude the possibility of exposure to HCV. Blood BLOOD SPECIMEN / Unknown Venipuncture / Unknown 11/30/2021 8:09 AM CDT 11/30/2021 8:10 AM CDT [facility] [address] [place] [address], * ANTI HIV 1/2 (11/30/2021 8:09 AM CDT) [facility] HIV-1/HIV-2 ANTIBODY Non-Reacti ve Non-Reacti ve 11/30/2021 5:04 PM CDT [facility] Comment:HIV-1 p24 and HIV-1/ HIV-2 Ab not detected. Blood BLOOD SPECIMEN / Unknown Venipuncture / Unknown 11/30/2021 8:09 AM CDT 11/30/2021 8:10 AM CDT Kimberly [facility] [address] [place] [address], from Last 3 Months or Most Recently Relevant to Health Maintenance Advance Directives * Full Code (Latest Code Status on File) Date Activated Date Inactivated Comments 08/05/2023 12:16 AM 08/06/2023 3:19 PM Question Answer Comments Code Status Discussion: Reviewed Preferences Care Teams Energy Risk Management Analyst Relationship Specialty Start Date End Date Corinne Kay PA [address] [place] [id number] PCP - General Physician Sports [employer] Internship 05/26/23
--- OUTSIDE RECORDS SUMMARY | 2024-01-06 11:04 | XMS_ITS | Referral Summary ---
Author Name Unknown Organization [facility] Address [address] [place] [address] Care Team Providers Care Patient Observer Name Role Phone Baljindermargarita Ute Primary Care [...] 36.7 ??C (98 ??F) 10/25/2018 2:29 PM LAWN CARETAKER Respiratory Rate 17 10/25/2018 4:07 PM LAWN CARETAKER Oxygen Saturation 97% 11/28/2018 10:00 AM CDT Inhaled Oxygen Concentration - - Weight 136 kg (299 lb 12.8 oz) 11/28/2018 10:00 AM CDT Height 171.5 cm (5' 7.5) 11/28/2018 10:00 AM CD T Body Mass Index 46.26 11/28/2018 10:00 AM CDT Plan of Treatment Not on file Care Teams Patient Observer Relationship Specialty Start Date End Date Thelma Cummins PCP - General Family Practice 11/28/18
--- OUTSIDE RECORDS SUMMARY | 2024-01-06 11:04 | XMS_ITS | Continuity of Care Document ---
Author Name Unknown Organization [facility] Address [address] [place] [address] Phone Care Team Providers Care Fire Operations Forester Name Role Phone Abdias Tamayo MD Unavailable Unavailable Allergies, Adverse Reactions, Alerts Substance Reaction Status Criticality bupropion Tachycardia Active No Information latex Active No Information Medications Medication Instructions Dosage Effective Dates (start - stop) Status Comments prednisone 20 mg tablet take 1 tablet PO BID for 7 days, then take 7 tablet daily for five days - Active IBUPROFEN (unknown strength) Not Available - Active DULOXETINE HCL (unknown strength) Not Available - Active Procedures Procedure Date Postop Followup Visit Postop Followup Visit Lami/Discectomy, Lumbar HNP Advance Directives Directive Yes / No Effective Date File Name No Information Encounters Encounter Description Practice Location Reason(s) For Visit Diagnoses Date Provider Providers Copied on Encounter [facility], [address], [place], [place], [id number], [place] tel:[phone] [facility] No Information Roni Calero. [facility], [address] [place] [address], [facility] [address], [place], [address], [place]. tel:[phone] [facility], [address], [place], [place], [id number], [place] tel:[phone] [facility] Radiculopathy , lumbar regionOther spondylosis, lumbar region 4 Roni Calero. [facility], [address], [address], [place], [address], [place]. [phone] Referring Provider: Abdias Tamayo, [facility] [address], [address], [place], [address]. tel:[phone] [facility], [address], [place], [place], [id number], [place] tel:[phone] [facility] Encounter for other specified surgical aftercare 4 Roni Calero. [facility], [address], [address], [place], [address], [place]. [phone] Referring Provider: Abdias Tamayo, [facility] [address], [address], [place], [address]. tel:[phone] [facility], [address], [place], [place], [id number], [place] tel:[phone] [facility] No Information 3 Roni Calero. [facility], [address], [address], [place], [address], [place]. [phone] Referring Provider: Abdias Tamayo, [facility] [address], [address], [place], [address]. tel:[phone] Family History Family Member Type Diagnosis Age At Onset Mother Problem (finding) Hypertension Mother Problem (finding) Depression Mother Problem (finding) Osteoarthritis Brother Problem (finding) Depression Mother Problem (finding) Diabetes mellitus Father Problem (finding) Depression Payers Payer name Insurance type Covered republican ID Navdeepkallie gretchensena([place]) [place] [id number] [place] [id number] Social History Type Description Quantity Date Captured [...]
--- OUTSIDE RECORDS SUMMARY | 2024-01-06 11:04 | XMS_ITS | Clinical Summary ---
Author Name Unknown Organization [facility] Address [address] [place] [address] Care Team Providers Care Polymer Engineer Name Role Phone Unavailable Primary Care Provider [...] for each transition of care or referral. [facility] Allergies Active Allergy Reactions Criticality Noted Date [...] Comments Blood Pressure 136/70 07/09/2011 9:27 AM MINERAL ENGINEER Pulse 76 07/09/2011 9:27 AM MINERAL ENGINEER Temperature 36.6 ??C (97.8 ??F) 12/22/2022 11:33 [...] 02/26/2004 HepB (1) 2005 COVID-19 Vaccine (3 season) 2023 10/09/2020, 09/11/2020 Influenza (Season Ended) 04/29/202407/19/2 019, 07/14/2018, 06/23/2016, Additional history exists DTaP/Tdap/Td (6 - Tdap) 04/14/2031 04/14/20 21, 07/08/2015, 02/27/2014, Additional history exists Zoster/Shingles (1 [...] on patient's age [place] [id number]
[2024-01-06 11:10] LABS: Clue Cells No Clue Cells Seen (None Seen); Trichomonas No Trichomonas Seen (None Seen); Yeast No Yeast Seen (None Seen)
== END 2024-01-06 11:01 | disposition home or self-care (01) ==
PROVIDERS: PCP Physician Assistant Medical; Visit Provider Obstetrics & Gynecology
DX: N89.8 Other specified noninflammatory disorders of vagina (principal)
CPT/HCPCS: 83001; 84270; 84402; 84403; 84443; 87210

== ENCOUNTER 2024-03-27 16:58 | Emergency (ER) | payer BC, SELFPAY ==
[2024-03-27 17:07] VITALS: BP 117/69; PULSE 81; RESP 18; TEMP 37; O2SAT 96; BMI 47.6
--- OUTSIDE RECORDS SUMMARY | 2024-03-27 17:30 | XMS_ITS | Clinical Summary ---
Author Organization [facility] Address [address] [place] [address] Care Team Providers Care Planetarium Technician Name Role Phone BaljinderThelma avila Ann Primary Care Provider Unavailab le Allergies Active [...] 36.7 ??C (98 ??F) 10/25/2018 2:29 PM AEROSPACE QUALITY ENGINEER Respiratory Rate 17 10/25/2018 4:07 PM AEROSPACE QUALITY ENGINEER Oxygen Saturation 97% 11/28/2018 10:00 AM CDT Inhaled Oxygen Concentration - - Weight 136 kg (299 lb 12.8 oz) 11/28/2018 10:00 AM CDT Height 171.5 cm (5' 7.5) 11/28/2018 10:00 AM CD T Body Mass Index 46.26 11/28/2018 10:00 AM CDT Plan of Treatment Not on file Care Teams Planetarium Technician Relationship Specialty Start Date End Date Thelma Cummins PCP - General Family Practice 11/28/18
--- OUTSIDE RECORDS SUMMARY | 2024-03-27 17:30 | XMS_ITS | Continuity of Care Document ---
Author Organization [facility] Address [address] [place] [address] Phone Care Team Providers Care Helper Metal Hanging Name Role Phone Abdias Tamayo MD Unavailable [...] on Encounter [facility], [address], [place], [place], [id number], [place] tel:[phone] [facility] [place] No Information Roni Calero. [facility] [place], [address] [place] [address], [facility] [address], [place], [address], [place]. tel:[phone] [facility], [address], [place], [place], [id number], [place] tel:[phone] [facility] Radiculopathy , lumbar regionOther spondylosis, lumbar region 4 Roni Calero. [facility], [address], [address], [place], [address], [place]. [phone] Referring Provider: Abdias Tamayo, [facility] [address], [address], [place], [address]. tel:[phone] [facility], [address], [place], [place], [id number], [place] tel:[phone] [facility] Encounter for other specified surgical aftercare 4 Roni Calero. [facility] [place], [address], [address], [place], [address], [place]. [phone] Referring Provider: Abdias Tamayo, [facility] [address], [address], [place], [address]. tel:[phone] [facility], [address], [place], [place], [id number], [place] tel:[phone] [facility] No Information 3 Roni Calero. [facility], [address], [address], [place], [address], [place]. [phone] Referring Provider: Abdias Tamayo, [facility] [address], [address], [place], [address]. tel:[phone] Family History Family Member Type Diagnosis Age At Onset Mother Problem (finding) Hypertension Mother Problem (finding) Depression Mother Problem (finding) Osteoarthritis Brother Problem (finding) Depression Mother Problem (finding) Diabetes mellitus Father Problem (finding) Depression Payers Payer name Insurance type Covered republic[place] ID [place] [id number] [place] State [id number] Social History Type Description Quantity Date Captured [...]
--- OUTSIDE RECORDS SUMMARY | 2024-03-27 17:30 | XMS_ITS | Continuity of Care Document ---
Author Organization [facility] Address [address] [address] [place] [address] Phone Care Team Providers Care Collator Operator Name Role Phone Nicky NAIK, Villalobos [...] Diagnoses Date Provider Providers Copied on Encounter [facility], [address] [address], [place], [id number], [place] tel:[phone] [facility] No Information 0 Nicky Villalobos. [address] [facility] [address], [place], [place], [id number], [place]. tel:[phone] New Level 4 or 45-59 min [facility], [address] [address], [place], [place], [id number], [place] tel:[phone] [facility] GI Symptoms or Concerns (chief complaint) HepatomegalySplen omegalyNAFLD (nonalcoholic fatty liver disease)Status post cholecystectomyIr ritable bowel syndrome with diarrheaChronic GERDSmokingHistor y of obstructive sleep apnea 0 No Information Referring Provider: Referral Self, USE FOR SELF REFERRALS. [facility], [address] [address], [place], [place], [id number], [place] tel:[phone] [facility] No Information 0 No Information [facility], [address] [address], [facility], [facility] [place], [id number], [place] tel:[phone] [facility] No Information 0 Tiera Daigle. [address] [facility] [address], [place], [place], [id number], [place]. tel:[phone] Family History Family Member Type Diagnosis Age [...]
--- OUTSIDE RECORDS SUMMARY | 2024-03-27 17:30 | XMS_ITS | Clinical Summary ---
Author Organization [facility] Address [address], [place] [address] Care Team Providers Care Player Manager Name Role Phone Unavailable Primary Care Provider [...] for each transition of care or referral. [facility] Allergies Active Allergy Reactions Criticality Noted Date [...] Comments Blood Pressure 136/70 07/09/2011 9:27 AM AGING ROOM HAND Pulse 76 07/09/2011 9:27 AM AGING ROOM HAND Temperature 36.6 ??C (97.8 ??F) 12/22/2022 11:33 [...] Visit 02/26/2004 HepB (1) 2005 COVID-19 Vaccine ( season) 2023 10/09/2020, 09/11/2020 Influenza (#1) 2024 07/19/2019, 06/29, 06/23/2016, Additional history exists DTaP/Tdap/Td (6 - Tdap) 04/14/2031 04/14/20, 07/08/2015, [...] [place] [id number]
--- OUTSIDE RECORDS SUMMARY | 2024-03-27 17:30 | XMS_ITS | Referral Summary ---
Author Organization [facility] Address [address] [place] [address] Care Team Providers Care Furniture Reproducer Name Role Phone Baljindermargarita Ute Primary Care [...] 36.7 ??C (98 ??F) 10/25/2018 2:29 PM [place] MACHINE OPERATOR Respiratory Rate 17 10/25/2018 4:07 PM [place] MACHINE OPERATOR Oxygen Saturation 97% 11/28/2018 10:00 AM CDT Inhaled Oxygen Concentration - - Weight 136 kg (299 lb 12.8 oz) 11/28/2018 10:00 AM CDT Height 171.5 cm (5' 7.5) 11/28/2018 10:00 AM CD T Body Mass Index 46.26 11/28/2018 10:00 AM CDT Plan of Treatment Not on file Care Teams Furniture Reproducer Relationship Specialty Start Date End Date Thelma Cummins PCP - General Family Practice 11/28/18
--- OUTSIDE RECORDS SUMMARY | 2024-03-27 17:30 | XMS_ITS | Clinical Summary ---
Author Organization [facility] Address [place], [place] [address] Care Team Providers Care Weaver Apprentice Name Role Phone Corinne Kay Primary Care Provider Allergies Active Allergy Reactions Criticality Noted Date Comments Cefaclor Anaphylaxis High 02/17/2011 Empagliflozin Itching,Other - Desc ribe In Comment Field 02/15/2024 Latex Rash 08/05/2023 Sertraline Nausea And Vomiting [...] Breath 1st choice. 1 Each 06/15/2023 Active traZODone (DESYREL) 50 mg tabletIndications:D epression, major, single episode, moderate (HC),Anxiety Take 1 Tablet (50 mg) by mouth at bedtime if needed for Sleep or Anxiety. 90 Tablet 3 10/17/2023 Active propranoloL (INDERAL) 10 mg tabletIndications:H TN (hypertension) Take 1 Tablet (10 mg) by mouth three times daily. Take as needed for anxiety. 90 Tablet 3 12/14/2023 Active tirzepatide (MOUNJARO) 5 mg/0.5 mL penIndications:Cont rolled type 2 diabetes mellitus without complication, without long-term current use of insulin (HC) Inject 0.5 mL (5 mg) subcutaneous once weekly. 2 mL 1 01/24/2024 Active cholecalciferol, Vitamin D3, (Vitamin D-3) 5,000 unit tab tablet Take 1 Tablet (5,000 units) by mouth once daily. 02/15/2024 Active [id number]-Fis h Oil 1,000 mg (120 mg-180 mg) cap Take 1 Capsule (1,000 mg) by mouth. 02/15/2024 Active citalopram (CELEXA) 40 mg tabletIndications:A nxiety,Depression, major, single episode, moderate (HC) Take 1 Tablet (40 mg) by mouth once daily in the morning. 90 Tablet 1 02/15/2024 Active LORazepam (ATIVAN) 1 mg tabletIndications:A nxiety TAKE 1 TABLET(1 MG) BY MOUTH EVERY DAY NEEDED FOR ANXIETY 20 Tablet 02/15/2024 Active tirzepatide (MOUNJARO) 7.5 mg/0.5 mL penIndications:Cont rolled type 2 diabetes mellitus without complication, without long-term current use of insulin (HC) Inject 0.5 mL (7.5 mg) subcutaneous once weekly. 6 mL 1 02/15/2024 Active Active Problems Problem Noted Date Diagnosed [...] Encounters Date Type Department Care Team Description 03/27/2024 Nurse Triage [facility] [address] [place] [address] Corinne Kay PA Rash 02/15/2024 9:50 AM CDT Office Visit [facility] [address] [place] [address] Corinne Kay PA Diabetes (Diabetic check); Medication Management (Citalopram - needs dose increase) 02/15/2024 Travel 02/12/2024 Travel 01/30/2024 Travel 01/02/2024 9:50 AM CDT Office Visit [facility] [address] [place] [address] Corinne Kay PA Follow Up (Started getting sick 12/14 with s/t, head and chest congestion. Went to on 12/19 was given azithromycin / prednisone taper, chest XR neg. Still SOB and coughing); Urinary Problem (Dysuria, frequency, urgency) 01/02/2024 Travel from Last 3 Months Immunizations Name [...] Sign Reading Time Taken Comments Blood Pressure 116/80 02/15/2024 10:04 AM CDT Pulse 65 02/15/2024 10:04 AM CDT Temperature 36.9 ??C (98.5 ??F) 01/02/2024 9:56 AM CD T Respiratory Rate 18 08/06/2023 7:26 AM NIB ASSEMBLER Oxygen Saturation 98% 01/02/2024 9:56 AM CDT Inhaled Oxygen Concentration - - Weight 131.1 kg (289 lb) 02/15/2024 10:04 AM CDT Height 167.6 cm (5' 6) 08/04/2023 12:43 PM NIB ASSEMBLER Body Mass Index 46.65 08/04/2023 12:43 PM NIB ASSEMBLER Plan of Treatment Health Maintenance Due Date Last Done Comments Pneumococcal series for age 6-64 (1 of 2 - PCV) 02/26/1992 COVID-19 vaccine series (2022-24 season) 2023 10/09/2020, 09/11/2020 Depression screening for [...] Procedure Name Priority Date/Time Associated Diagnosis Comments HEMOGLOBIN A1C Routine 02/15/2024 10:33 AM CDT Controlled type 2 diabetes mellitus without complication, without long-term current use of insulin (HC) UA W/ SEDIMENT EXAM REFLEXED PER CRITERIA Routine 01/02/2024 10:01 AM CDT Dysuria ANTI HIV 1/2 Routine 11/30/2021 8:09 AM CDT Employee exposure to blood ANTI HCV Routine 11/30/2021 8:09 AM CDT Employee exposure to blood from Last 3 Months or Most Recently Relevant to Health Maintenance Results * HEMOGLOBIN A1C MONITORING (POCT) (02/15/2024 10:33 AM CDT) HEMOGLOBIN A1C MONITORING (POCT) 6.4 <=6.4 % 02/15/2024 10:42 AM CDT [facility] Blood BLOOD SPECIMEN / Unknown Venipuncture / Unknown 02/15/2024 10:33 AM CDT 02/15/2024 10:33 AM CDT Narrative [facility] - 02/15/2024 10:42 AM CDT ? (<=6.9%) ? Indicates good control ? (7.0% to 7.9%) ? Indicates fair control ? (>=8.0%) ? Indicates poor control ?? NOTE: ??These thresholds are guidelines and ?individual targets may vary. Falsely low levels may be seen with: Recent Transfusion, Recent Significant Blood Loss, Hemolytic Diseases, or Falsely elevated levels may be seen with: Untreated Anemias, Splenectomy ? Corinne CORTES CHEMISTRY [facility] [address] [place] [address], * (ABNORMAL) UA W/ SEDIMENT EXAM REFLEXED PER CRITERIA (01/02/2024 10:01 AM CDT) COLOR Yellow Yellow Color 01/02/2024 10:04 AM CDT [facility] CLARITY Clear Clear Clarity 01/02/2024 10:04 AM CDT [facility] SPECIFIC GRAVITY,URINE 1.020 1.010, 1.015, 1.020, 1.025 01/02/2024 10:04 AM CDT [facility] PH,URINE 7.0 6.0, 7.0, 8.0, 5.5, 6.5, 7.5, 8.5 01/02/2024 10:04 AM CDT [facility] UROBILINOGEN, QUALITATIVE Normal Normal EU/dl 01/02/2024 10:04 AM CDT [facility] PROTEIN, URINE Negative Negative mg/dL 01/02/2024 10:04 AM CDT [facility] GLUCOSE, URINE 100(A) Negative mg/dL 01/02/2024 10:04 AM CDT [facility] KETONES,URINE Negative Negative mg/dL 01/02/2024 10:04 AM CDT [facility] BILIRUBIN,URI NE Negative Negative 01/02/2024 10:04 AM CDT [facility] OCCULT BLOOD,URINE Negative Negative 01/02/2024 10:04 AM CDT [facility] NITRITE Negative Negative 01/02/2024 10:04 AM CDT [facility] LEUKOCYTE ESTERASE Negative Negative 01/02/2024 10:04 AM CDT [facility] Urine URINE SPECIMEN / Unknown Non-Blood / Unknown 01/02/2024 10:01 AM CDT 01/02/2024 10:01 AM CDT Corinne CORTES URINE [facility] [address] [place] [address], * ANTI HCV (11/30/2021 8:09 AM CDT) HEPATITIS C ANTIBODY Non-React ad Non-React ad 11/30/2021 5:08 PM CDT [facility] Comment:Antibodies to HCV no t detected; does not exclude the possibility of exposure to HCV. Blood BLOOD SPECIMEN / Unknown Venipuncture / Unknown 11/30/2021 8:09 AM CDT 11/30/2021 8:10 AM CDT Kimberly CORTES SEND OUTS [facility] [address] [place] [address], [place] * ANTI HIV 1/2 (11/30/2021 8:09 AM CDT) HIV-1/HIV-2 ANTIBODY Non-Reacti ve Non-Reacti ve 11/30/2021 5:04 PM CDT [facility] Comment:HIV-1 p24 and HIV-1/ HIV-2 Ab not detected. Blood BLOOD SPECIMEN / Unknown Venipuncture / Unknown 11/30/2021 8:09 AM CDT 11/30/2021 8:10 AM CDT Kimberly CORTES SEND OUTS [facility] 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
[2024-03-27 17:44] LABS: Eosinophils Absolute Auto 0.15 K/uL (0.00-0.50); Eosinophils Percent Auto 2.6 % (0.0-7.0); Hematocrit 41.4 % (33.0-51.0); Hemoglobin* 13.8 gm/dL (12.0-16.0); Immature Granulocytes Abs Auto 0.02 K/uL (0.00-0.30); Immature Granulocytes Pct Auto 0.4 %; Lymphocytes Absolute Auto 1.62 K/uL (0.90-2.90); Lymphocytes Percent Auto 28.4 % (20-44); Mean Corpuscular HGB Conc 33 gm/dL (32-36); Mean Corpuscular Hemoglobin 29 pg (26-34); Mean Corpuscular Volume 86 fL (80-100); Neutrophils Absolute Auto 3.69 K/uL (1.7-7.0); Neutrophils Percent Auto 64.6 % (42.0-72.0); Platelet Count* 194 K/uL (140-440); RDW Coefficient of Variation % 12.3 % (11.5-15.5); Red Blood Count 4.81 m/uL (4.00-5.20); White Blood Count* 5.71 K/uL (4.50-11.00)
[2024-03-27 17:45] LABS: Slide Review Reflex No
[2024-03-27 18:04] LABS: Albumin* 3.9 g/dL (3.3-5.0); Chloride* 106 mmol/L (96-114)
--- NOTE | 2024-03-27 18:04 | ED_ITS ---
HPI - General Adult General Chief complaint: Skin/Abscess/Foreign Body Stated complaint: rash and stiff joints Time Seen by Provider: 03/27/24 17:03 Source: patient Mode of arrival: ambulatory Limitations: no limitations History of Present Illness HPI narrative: 39-year-old female coming in today concerned about joint pain and rash. Patient went fishing last 9 in used bug spray and at around 7:00 p.m. last night noted that she had a burning sensation of her arms and legs. She thought she was having a reaction to the bug spray. This morning she woke up and noted a rash of her upper and lower extremities accompanied by joint swelling and tenderness of multiple joints including her hands, wrists, elbows, knees and ankles. She denies any fevers. She states that she had chills this morning. She feels slightly nauseated but has not vomited. Appetite has been normal. She denies any diarrhea or urinary symptoms. She denies any blood in her urine. She denies any unintentional weight changes. She denies any bug bites. She denies any joint redness. she denies any abdominal pain, cough, shortness of breath. Related Data Home Medications ?Medication ?Instructions ?Recorded ?Confirmed trazodone 50 mg tablet 50 mg PO QPM 12/26/22 03/27/24 citalopram 40 mg tablet 40 mg PO QAM 03/27/24 03/27/24 lorazepam 1 mg tablet 1 mg PO DAILY PRN anxiety 03/27/24 03/27/24 tirzepatide 7.5 mg/0.5 mL mg subcut 03/27/24 subcutaneous pen injector (Nikita) Previous Rx's ?Medication ?Instructions ?Recorded prednisone 20 mg tablet 40 mg (2 x 20 mg) PO DAILY 5 days 03/27/24 #10 tabs Allergies Allergy/AdvReac Type Severity Reaction Status Date / Time sertraline Allergy Unknown Verified 03/27/24 17:11 cefaclor [From Ceclor] AdvReac Severe Verified 03/27/24 17:11 bupropion AdvReac Intermediate Tachycardia Verified 03/27/24 17:11 latex AdvReac Mild Rash Verified 03/27/24 17:11 Review of Systems Status of ROS: Reports: 10 or more systems reviewed and unremarkable except as noted in History and below [facility] Medical History Diabetes mellitus ?E11.9 - Type 2 diabetes mellitus without complications (ICD-10) Surgical History S/P left oophorectomy ?Z90.721 - Acquired absence of ovaries, unilateral (ICD-10) History of cholecystectomy ?Z90.49 - Acquired absence of other specified parts of digestive tract (ICD- 10) History of lumbar surgery ?Z98.890 - Other specified postprocedural states (ICD-10) H/O bilateral salpingectomy ?Z90.79 - Acquired absence of other genital organ(s) (ICD-10) S/P laparoscopic hysterectomy ?Z90.710 - Acquired absence of both cervix and uterus (ICD-10) Family History Other Breast cancer Diabetes Heart disease High blood pressure Kidney disease Stroke Social History Smoking Status: Current every day smoker Nicotine containing products detail: 1 pack a day Second hand tobacco smoke exposure: No How often do you have a drink containing alcohol: never AUDIT-C Alcohol total score: 0 Non-prescribed substance use: denies use service: No Exam Narrative: Exam Narrative: Obese,well-developed patient in no acute distress. Alert and oriented. Answers questions appropriately. Mood and affect are appropriate. Thoughts are goal oriented and rational. No tangential or magical thinking noted. Patient speaks in full sentences without needing to catch her breath. Patient smells of cigarette smoke. HEENT: Normocephalic atraumatic. Pupils are equally round reactive to light. Extraocular muscles are intact. Conjunctivae are moist without any icterus noted. Moist mucous membranes. Posterior pharynx is normal. Neck is soft wit hout any lymphadenopathy or thyromegaly. No masses are appreciated. Cardiovascular: Heart is regular rate and rhythm S1 and S2 are present without any murmurs. Lungs: clear auscultation on the left. The right has very mild end-expiratory wheezing. Abdomen: Soft and nontender nondistended with normal bowel sounds. No guarding or rebound. Difficult to assess for organomegaly or mass secondary to body habitus. Extremities: Bilateral lower extremities are without Pitting edema. Normal DP and PT pulses. Patient has no obvious joint effusions, there is no joint swelling or erythema noted. Skin: warm, dry, intact. Patient has a very fine papular rash of the upper lower extremities that is pink and blanchable. The rash goes into the axillary regions and down the lateral chest wall. Does not involve the trunk otherwise. Const: Vital Signs, click to edit/add: Vital Signs - 24 hr 03/27/24 17:07 Temperature 98.6 F Pulse Rate [Pulse Oximeter] 81 Respiratory Rate 18 Blood Pressure [Ri ght Upper Arm] 117/69 Pulse Oximetry 96 Oxygen Delivery Me thod Room Air Course Course ED Course: IV established and labs were drawn. CBC is entirely normal. Chemistries show slightly low potassium at 3.4 and glucose elevated at 158. Lactate is elevated at 2.7. LFTs are normal. CRP 1.3. COVID is negative. TSH is normal. ESR is 5. [place] screen is negative. Patient did receive a L of normal saline. Lyme Lexii and tick-borne panel pending. Vital Signs Vital signs: Initial Vital Signs Temperature 98.6 F 03/27/24 17:07 Temperature Source Temporal Artery Scan 03/27/24 17:07 Pulse Rate 81 03/27/24 17:07 Pulse Rhythm Regular 03/27/24 17:07 Pulse Strength 3+ Normal 03/27/24 17:07 Respiratory Rate 18 03/27/24 17:07 Blood Pressure 117/69 03/27/24 17:07 Blood Pressure Mean 85 03/27/24 17:07 Blood Pressure Position Semi-Fowlers 03/27/24 17:07 Pulse Oximetry 96 03/27/24 17:07 Oxygen Delivery Method Room Air 03/27/24 17:07 Vital Signs Temperature 98.6 F 03/27/24 17:07 Pulse Rate 81 03/27/24 17:07 Respiratory Rate 18 03/27/24 17:07 Blood Pressure 117/69 03/27/24 17:07 Pulse Oximetry 96 03/27/24 17:07 Oxygen Delivery Method Room Air 03/27/24 17:07 Temperature 98.6 F 03/27/24 17:07 Pulse Rate 81 03/27/24 17:07 Respiratory Rate 18 03/27/24 17:07 Blood Pressure 117/69 03/27/24 17:07 Pulse Oximetry 96 03/27/24 17:07 Oxygen Delivery Method Room Air 03/27/24 17:07 Medications Administered Medications: Discontinued Medications Generic Name Dose Route Start Last Admin Trade Name Daniel PRN Reason Stop Dose Admin Sodium Chloride 1,000 mls @ 1,000 mls/hr 03/27/24 18:00 03/27/24 18:18 0.9 % Sodium Chloride 1000 Ml IV 03/27/24 18:59 1,000 mls/hr .Q1H BRINA Administration Medical Decision Making MDM Narrative Medical decision making narrative: 39-year-old female with polyarthralgia and rash. Etiology unclear at this time. Recommend patient follow-up with her primary care provider for further investigation. In the meantime we will treat the patient with prednisone for 5 days to see if this makes a difference in her symptoms. Lab Data Lab results reviewed: Yes I reviewed the patient's lab results Labs: Lab Results 03/27/24 03/27/24 Range/Units 17:35 17:55 WBC 5.71 (4.50-11.00) K/uL RBC 4.81 (4.00-5.20) m/uL Hgb 13.8 (12.0-16.0) gm/dL Hct 41.4 (33.0-51.0) % MCV 86 (80-100) fL MCH 29 (26-34) pg MCHC 33 (32-36) gm/dL RDW Coeff of Ivette 12.3 (11.5-15.5) % Plt Count 194 (140-440) K/uL Neut % (Auto) 64.6 (42.0-72.0) % Lymph % (Auto) 28.4 (20-44) % [place] % (Auto) 4.0 (0.0-11.0) % Eos % (Auto) 2.6 (0.0-7.0) % Baso % (Auto) 0.0 (0.0-3.0) % Neut # (Auto) 3.69 (1.7-7.0) K/uL Lymph # (Auto) 1.62 (0.90-2.90) K/uL [place] # (Auto) 0.20 (0.00-0.90) K/UL Eos # (Auto) 0.15 (0.00-0.50) K/uL Baso # (Auto) 0.00 (0.00-0.30) K/uL Abs Immat Gran (auto) 0.02 (0.00-0.30) K/uL Imm/Tot Granulo (auto) 0.4 % ESR 5 (2-20) mm/hr Sodium 136 (135-149) mmol/L Potassium 3.4 L (3.6-5.1) mmol/L Chloride 106 (96-114) mmol/L Carbon Dioxide 23 (20-32) mmol/L Anion Gap 7 (7-15) mEq/L BUN 12 (5-24) mg/dL Creatinine 0.8 (0.5-1.5) mg/dL Estimated Creat Clear 85.80 Estimated GFR 97 ml/min Glucose 158 H (60-115) mg/dL Lactate 2.7 H (0.5-1.9) mmol/L Calcium 8.5 (8.4-10.6) mg/dL Total Bilirubin 0.4 (0.1-1.5) mg/dL Direct Bilirubin 0.3 (0.0-0.5) mg/dL AST 25 (12-35) U/L ALT 30 (4-35) U/L Alkaline Phosphatase 63 (40-150) U/L C-Reactive Protein 1.3 H (0.5-1.0) mg/dL Total Protein 6.3 (6.0-8.3) g/dL Albumin 3.9 (3.3-5.0) g/dL TSH 1.470 (0.270-4.20) uIU/mL SARS-CoV-2 (PCR) Negative SARS-CoV-2 (Negative) Monoscreen Negative (Negative) Discharge Plan Discharge Clinical Impression: Polyarthralgia, Rash Patient Disposition: Home, Self-Care Condition: Stable Additional Instructions: Workup today was fairly unremarkable. We do have a tick Disease panel pending. You can follow-up the results of this on your iChart. I do recommend that you follow-up with your primary care provider this week for further investigations. In the meantime we will treat you with a steroid to see if this helps your sy mptoms. Make sure to take copy of all your lab work done today to your doctor. Prescriptions: New prednisone 20 mg tablet 40 mg PO DAILY 5 Days Qty: 10 0RF No Action trazodone 50 mg tablet 50 mg PO QPM citalopram 40 mg tablet 40 mg PO QAM lorazepam 1 mg tablet 1 mg PO DAILY PRN (Reason: anxiety) Mounjaro 7.5 mg/0.5 mL pen injector subcut Follow Up/Referrals: Corinne Kay PA-C [Primary Care Provider] - Stand Alone Forms: [facility] Info Instructions
[2024-03-27 18:05] LABS: Potassium* 3.4 mmol/L (3.6-5.1); Sodium* 136 mmol/L (135-149)
[2024-03-27 18:07] LABS: Creatinine* 0.8 mg/dL (0.5-1.5); Estimated Glomerular Filt Rate 97 ml/min
[2024-03-27 18:08] LABS: Alanine Aminotransferase* 30 U/L (4-35); Alkaline Phosphatase* 63 U/L (40-150); Anion Gap 7 mEq/L (7-15); Aspartate Amino Transferase* 25 U/L (12-35); Bilirubin Direct* 0.3 mg/dL (0.0-0.5); Bilirubin Total* 0.4 mg/dL (0.1-1.5); Blood Urea Nitrogen* 12 mg/dL (5-24); Calcium* 8.5 mg/dL (8.4-10.6); Carbon Dioxide* 23 mmol/L (20-32); Glucose* 158 mg/dL (60-115); Total Protein* 6.3 g/dL (6.0-8.3)
[2024-03-27 18:10] LABS: C Reactive Protein* 1.3 mg/dL (0.5-1.0)
[2024-03-27 18:18] LABS: Lactate* 2.7 mmol/L (0.5-1.9)
[2024-03-27] MEDS: 0.9 % SODIUM CHLORIDE 1000 ml 1,000 ML IV (18:18)
[2024-03-27 18:35] LABS: SARS PCR* Negative SARS-CoV-2 (Negative)
[2024-03-27 19:13] LABS: Erythrocyte SedimentationRate* 5 mm/hr (2-20); Mono Screen* Negative (Negative)
[2024-03-27 19:42] VITALS: BP 129/80; PULSE 67; RESP 16
--- NOTE | 2024-03-28 16:42 | ED.NURSE ---
Pt called inquiring whether her bloodwork tick panel was resulted yet. These results are still pending. Pt informed of this.
[2024-03-30 13:51] LABS: Lyme ELISA Reflex 1.15 IV (<=0.90); Lyme Mod 2Tier Test Interp Negative (Negative)
[2024-03-30 18:32] LABS: Anaplasma phagocyt PCR Not Detected; Babesia microti by PCR Not Detected; Babesia species by PCR Not Detected; Ehrlichia chaffeensis by PCR Not Detected; Ehrlichia ewingii/canis by PCR Not Detected; Ehrlichia muris-like by PCR Not Detected
== END 2024-03-27 19:42 | disposition home or self-care (01) ==
PROVIDERS: Emergency Provider Family Medicine; PCP Physician Assistant Medical
DX: M25.50 Pain in unspecified joint (principal); R21 Rash and other nonspecific skin eruption
CPT/HCPCS: 36415; 80048; 80076; 83605; 84443; 85025; 85651; 86140; 86308; 86618; 87468; 87469; 87484; 87635; 87798; 96360; 99284; J7030